=== PATIENT | male | born 1965 | race Caucasian/White ===

== ENCOUNTER 2024-08-23 15:33 | Inpatient (IN) | payer OTHER, SELFPAY ==
[2024-08-23] VITALS (14 sets, daily range): BP systolic 123–155; BP diastolic 68–89; BMI 27.7; BMI 27.1
--- NOTE | 2024-08-23 13:49 | ED.GENMED ---
History of Present Illness
General
Chief Complaint: Skin Problem
Source: patient
Exam Limitations: none
Time Seen by Provider: 08/23/24 13:28
Nursing documentation reviewed up to this point in time: agreed with
History of Present Illness
History of Present Illness:
58-year-old male past medical history of diabetes partial toe amputation to the left foot presenting to the emergency department today with concerns of worsening swelling and redness over the past 10 days. Received by his retail salesperson 6 days ago
started on doxycycline and has been taking this as prescribed without improvement. Denies any systemic symptoms fevers. Denies any nausea vomiting chest pain.
Review of Systems
Review of Systems
Allergies reviewed?: Yes
All Other Systems: ROS reviewed and negative except as documented in HPI and ROS
Phy Exam
Physical Exam
Physical Exam:
GENERAL: Alert , in no apparent distress
EYE: pupils equal and reactive
NECK: Supple, no significant adenopathy.
ENT: o/p clr, mmm.
CARDIAC: Regular rate and rhythm .
LUNGS: Clear breath sounds bilaterally, no acute respiratory distress, no wheezes/rales/rhonchi
ABDOMEN: Soft, without focal tenderness, no r/g, no cvat
NEUROLOGICAL: Alert and oriented, no focal neuro deficits
SKIN: Redness and swelling to the left great toe with distal amputation from 3 years ago, small mount of purulence and ulceration to the medial distally redness and warmth to the midfoot warm and dry, skin intact.
MUSCULOSKELETAL: No edema, well perfused.
PSYCH: Normal and appropriate interaction.
Sepsis
Sepsis Screening
Sepsis Assessment: Sepsis Ruled Out
Sepsis Screen
Sepsis Screen: Sepsis Ruled Out
Date: 08/23/24
Time: 14:52
Course
Orders/Labs/Results
Orders:
Orders
08/23/24 13:35
CR Foot - Left Min 3 Views Urgent
Comment:
Reason For Exam: great toe infection
08/23/24 14:14
Vancomycin [Vancocin] 2,000 mg 0.9% Sodium Chloride 500 ml [Nss] 500 ml IV NOW
08/23/24 14:18
CBC/With Diff [Complete Blood Count/With Diff] Urgent
CMP [Comprehensive Metabolic Panel] Urgent
Lactic Acid Urgent
Wound Culture [Wound/Abscess/Other Culture] Urgent
ALEXUS Source: Toe
Specimen Description:
Date Specimen was Collected: 08/23/24
Time Specimen was Collected: 13:38
Abnormal Lab Results
08/23/24
14:18
RBC 3.71 L 10^6/uL
(4.70-6.10)
Hgb 10.1 L g/dL
(13.0-18.0)
Hct 28.6 L %
(39.0-52.0)
MCV 77.1 L fL
(80.0-94.0)
RDW 14.8 H %
(11.5-14.5)
MPV 11.0 H fL
(7.4-10.4)
Abs Immat Gran (auto) 0.1 H 10^3/uL
(0-0.05)
Absolute Lymphs (auto) 1.1 L 10^3/uL
(1.2-3.4)
Absolute Monos (auto) 0.7 H 10^3/uL
(0.1-0.6)
Immature Gran % 0.7 H %
(0-0.5)
Lymphocytes % 13.8 L %
(20.5-51.1)
08/23/24 14:18
Vital Signs
Initial and Last Documented VS:
Initial Vital Signs
Temp Pulse Resp BP Pulse Ox
98.1 F 110 16 135/89 99
08/23/24 13:09 08/23/24 13:09 08/23/24 13:09 08/23/24 13:09 08/23/24 13:09
Last Documented Vital Signs
Temp Pulse Resp BP Pulse Ox
98.1 F 110 16 135/89 99
08/23/24 13:09 08/23/24 13:09 08/23/24 13:09 08/23/24 13:09 08/23/24 13:09
MDM/Problems Addressed
MDM/Problems Addressed:
58-year-old male presenting for apparent worsening of left great toe infection over the past 6 days despite taking doxycycline. Case discussed with podiatry started on IV antibiotics and will be admitted for further management.
*Critical Care Note
Total Time (30-74mins, 75-104mins- exclusive of procedures): Not Applicable
ED Attending Note
-
Portions of this chart may have been created with voice recognition software.� Occasional wrong word or��sound alike� substitutions may have occurred due to the inherent limitations of voice recognition software.
Discharge Plan
Departure
Patient Disposition: Admit
Date of Disposition: 08/23/24
Time of Disposition: 14:51
Admit to: Med/Surg
Admit to doctor: Bety
Presentation/result/management discussed w/ accepting MD/DO: Hospitalist
Patient with high blood pressure during this ER visit?: No
Condition: Good
Covid-19: Not Applicable
Discharge Problem:
Infection of toe
Prescriptions:
No Action
amlodipine 10 mg tablet
10 mg PO DAILY
losartan 100 mg tablet
100 mg PO DAILY
insulin aspart U-100 [Novolog FlexPen U-100 Insulin] 100 unit/mL (3 mL) insulin pen
20 unit SC MEALS
tadalafil 20 mg tablet
20 mg PO DAILYPRN PRN (Reason: ed)
insulin glargine [Lantus Solostar U-100 Insulin] 100 unit/mL (3 mL) insulin pen
28 unit SC BID
dapagliflozin propanediol [Farxiga] 5 mg tablet
5 mg PO DAILY
Nuzyra 150 mg tablet
150 mg PO BID
Referrals:
Brandi Evangelista DO [Family Provider] -
Interventions
Interventions:
*Risk Screen - Suicide Last Done: 08/23/24 13:09
*General Assessment Last Done: 08/23/24 13:09
*Neglect/Abuse Screening Last Done: 08/23/24 13:09
*ED COVID-19 Vaccine History Last Done: 08/23/24 13:09
Discharge Date and Time
Print Language: GUATEMALAN
[2024-08-23] MEDS: VANCOCIN 540 MG IV (14:24)
[2024-08-23 14:31] LABS: % Basophils 0.5 % (0-2); % Immature Granulocytes 0.7 % (0-0.5); % Lymphocytes 13.8 % (20.5-51.1); % Monocytes 9.2 % (1.7-9.3); % Neutrophils 74.8 % (42.2-75.2); Absolute Eosinophils 0.1 10^3/uL (0-0.7); Absolute Immature Granulocytes 0.1 10^3/uL (0-0.05); Absolute Lymphocytes 1.1 10^3/uL (1.2-3.4); Absolute Monocytes 0.7 10^3/uL (0.1-0.6); Hematocrit 28.6 % (39.0-52.0); Hemoglobin 10.1 g/dL (13.0-18.0); Mean Corp Hgb Conc. 35.3 g/dL (33.0-37.0); Mean Corpuscular Hgb 27.2 pg (27.0-31.0); Mean Corpuscular Volume 77.1 fL (80.0-94.0); Nucleated Red Blood Cells % 0 % (-); Platelet Count 294 10^3/uL (130-400); Red Blood Cell Count 3.71 10^6/uL (4.70-6.10); Red Cell Dist. Width 14.8 % (11.5-14.5)
[2024-08-23 14:48] LABS: Lactic Acid 0.9 mmol/L (0.7-2.0)
[2024-08-23 14:56] LABS: ALT (SGPT) 24 U/L (0-50); AST (SGOT) 17 U/L (17-59); Albumin 3.5 g/dl (3.5-5.0); Alkaline Phosphatase 156 U/L (38-126); Blood Urea Nitrogen 40 mg/dl (9-20); Calcium 8.4 mg/dl (8.4-10.2); Carbon Dioxide 17 mmol/L (22-30); Chloride 101 mmol/L (98-107); Estimated Creatinine Clearance 51 ml/min; Glucose 300 mg/dl (70-99); Sodium 133 mmol/L (135-145); Total Bilirubin 0.6 mg/dl (0.2-1.3); Total Protein 6.4 g/dl (6.3-8.2); eGFR 40.64
--- NOTE | 2024-08-23 15:28 | HPS.HSE ---
Family Physician
-
Family Physician: Brandi Evangelista
Chief Complaint
-
foot infection
History of Present Illness
58-year-old male past medical history of type II diabetes, partial amputation of left great toe 3 years ago, PAD status post left lower extremity intervention 3 years ago, hypertension, presenting for worsening swelling and redness and pain at the
site of the amputation for the past 10 days. He saw his lamp assembler who performed debridement started antibiotics 60s ago without improvement. Patient is having discharge. He denies any fevers or chills.
Patient states that he had a TIA a few months ago. At that time he had blood work which showed normal kidney function. He was admitted a week ago for vomiting [facility] was given IV fluids. At time he was noted to have elevated
creatinine which was new. Currently denies any nausea vomiting or abdominal pain or diarrhea.
He states that his blood sugars have been elevated for the past few weeks which she attributes to infection. Patient does vape and is trying to quit. He drinks a few glasses of alcohol a week.
He had a vascular ultrasound few weeks ago [facility] which apparently did not show any blockages in his left lower extremity.
Medical History
Past Medical History
Past Medical History: Reports Other (type II diabetes, partial amputation of left great toe 3 years ago, PAD status post left lower extremity intervention 3 years ago, hypertension, )
Past Surgical History: Reports Other (amputation )
Social History
Tobacco: Non-smoker
Alcohol: None
Drug: None
Family History
Family History: Not pertinent
Allergies / Home Medications
Allergies reflects when Allergies were last updated in [facility].
Home Medications with original date entered in [facility]
Allergy/Medication List:
Allergies
Allergy/AdvReac Type Severity Reaction Status Date / Time
No Known Allergies Allergy Verified 08/23/24 13:13
Home Medications
amlodipine 10 mg tablet 10 mg PO DAILY 08/23/24
dapagliflozin propanediol 5 mg tablet (Farxiga) 5 mg PO DAILY 08/23/24
insulin aspart U-100 100 unit/mL (3 mL) subcutaneous pen (Novolog FlexPen U-100 Insulin aspart) 20 unit SC MEALS 08/23/24
insulin glargine 100 unit/mL (3 mL) subcutaneous pen (Lantus Solostar U-100 Insulin) 28 unit SC BID 08/23/24
losartan 100 mg tablet 100 mg PO DAILY 08/23/24
omadacycline 150 mg tablet (Nuzyra) 150 mg PO BID 08/23/24
tadalafil 20 mg tablet 20 mg PO DAILYPRN PRN ed 08/23/24
Review of Systems
-
History Source: Patient
A 12 point ROS was completed and negative except as noted: Yes
Constitutional: Reports No Symptoms
EENT: Reports No Symptoms
Respiratory: Reports No Symptoms
Cardiac: Reports No Symptoms
Abdomen/GI: Reports No Symptoms
: Reports No Symptoms
Musculoskeletal: Reports No Symptoms
Skin: Reports See HPI
Neurological: Reports No Symptoms
Endocrine: Reports No Symptoms
Hematologic/Lymphatic: Reports No Symptoms
Psych: Reports No Symptoms
Physical Exam
Vital Signs
Vital Signs
Temp Pulse Resp BP Pulse Ox
98.1 F 90 20 139/77 100
08/23/24 13:09 08/23/24 14:00 08/23/24 14:00 08/23/24 14:00 08/23/24 14:00
Physical Exam
General: Well Developed, Well Nourished and No Apparent Distress
HEENT: NormoCephalic, Moist mucous membranes and Atraumatic
Respiratory: Clear
Cardiac: S1/S2 and Regular Rhythm; No Murmur or Rub
GI: Soft, Non Tender, Non Distended and Normal Bowel Sounds; No Organomegaly
Rectal: Deferred by Provider
Musculoskeletal: No Clubbing, No Cyanosis and No Edema
Skin: Other (left great toe swelling, erythema, wound dischagre ); No Rash
Neuro: Nonfocal/grossly intact
Laboratory Results
-
08/23/24 14:18
08/23/24 14:18
Laboratory Results
Lactic Acid 0.9 mmol/L (0.7-2.0) 08/23/24 14:18
Total Bilirubin 0.6 mg/dl (0.2-1.3) 08/23/24 14:18
AST 17 U/L (17-59) 08/23/24 14:18
ALT 24 U/L (0-50) 08/23/24 14:18
Alkaline Phosphatase 156 U/L (38-126) H 08/23/24 14:18
Data Reviewed
-
Lab Data: Labs Reviewed by me
Old Records: Reviewed
Impression/Plan
-
IMPRESSION:
PLAN:
# Diabetic foot infection of left great toe partial amputation site, possible underlying osteomyelitis
# Left great toe partial amputation 3 years ago
-X-ray shows postoperative change of the great toe with prior distal phalanx removal, soft tissue swelling with subcutaneous gas
-Podiatry consult
-N.p.o. for possible surgery today
-Wound culture sent
-Vancomycin/Zosyn
-ID consulted
-Wound care
-Vascular surgery consult
-Will need to obtain vascular records from [facility]
#History of PAD with intervention of left lower extremity 3 years ago
-Will need to obtain vascular records from [facility]
# THOMAS on possible diabetic nephropathy
-Baseline creatinine unavailable
-Creatinine 1.9
-IV fluids
-Hold losartan
# Hyperglycemia secondary to infection
# Type 2 diabetes
-Continue Lantus 28 units twice daily due to hyperglycemia
-Continue dapagliflozin
-High-dose sliding scale
Essential hypertension
-Hold losartan
-Continue amlodipine
Vaping history
Full code
DVT prophylaxis�SCDs
N.p.o.
--- NOTE | 2024-08-23 16:23 | W.PN.POD ---
Today's Communication
Today's Communication
pt to OR today
Assessment / Plan
-
absces/gas/ulcer left foot---pt to remain npo
will plan for OR today
consent obtained
full consult dictated
pt understands extent of infection and need for mult sx
npo
cont abx
consult ID/vasc
Subjective
Chief Complaint
pt seen for ulcer/abscess/gas left foto
full consult dictated
Objective
Temp Pulse Resp BP Pulse Ox
98.1 F 90 20 139/77 100
08/23/24 13:09 08/23/24 14:00 08/23/24 14:00 08/23/24 14:00 08/23/24 14:00
08/23/24 14:18
08/23/24 14:18
Vital Signs and Lab results were reviewed.
--- NOTE | 2024-08-23 17:29 | PHA.VAN.IN ---
Assessment
- Assessment
Renal Function: Unknown baseline
Concomitant Antimicrobials: ZOSYN
- Previous Dosing Experience
Previous Regimen: NONE
Plan
- Plan
Initial / Loading Dose: 2GM
Maintenance Regimen: DOSING BY RANDOM LEVELS
Monitoring: RANDOM VANCOMYCIN LEVEL 08/24/24 AM
Pharmacokinetics Vancomycin I
- -
Patient Age: 58
Patient Sex: Male
Vancomycin Day #: 1
Indication: Skin And Soft Tissue (DIABETIC FOOT; OM)
Requesting Provider: SUSAN
Height / Weight:
Height 6 ft 3 in
Actual Weight 98.231 kg
Pertinent Past Medical History: DM; PARTIAL AMP [L] GREAT TOE
- Vital Signs / Lab Results
Temp Pulse Resp BP Pulse Ox
98.1 F 88 20 139/82 92
08/23/24 17:13 08/23/24 17:13 08/23/24 17:13 08/23/24 17:13 08/23/24 17:13
Lab Results - Hematology
08/23/24
14:18
WBC 8.0
Lab Results - Chemistry
08/23/24
14:18
BUN 40 H
Creatinine 1.9 H
Estimated Creat Clear 51
Albumin 3.5
08/23/24
14:18
Lactic Acid 0.9
[2024-08-23] MEDS: ZOSYN IV (18:02)
[2024-08-23 18:47] LABS: Glucose - Point of Care 383 mg/dl (70-99)
--- NOTE | 2024-08-23 18:48 | W.PN.UPDATE ---
Update Note
Progress Note Update
pt seen in RR
no pain
no f/.cardiology consultants
dressing cdi
vasc cft intact to toes
a/p s/p s/p I&D/hallux amp left---stable for now, wound left open
met head exposed
will plan for delayed closed and met resection in coming days
ID consulted
vasc consulted
cont abx
will follow
nwb left foot
[2024-08-23] MEDS: NOVOLOG vial 8 UNITS SC (18:59)
[2024-08-23] MEDS: DILAUDID 0.25 MG IV (19:06)
--- NOTE | 2024-08-23 20:00 | PTCARENOTE ---
Patient arrived from PACU following left great toe amputation. Patient AAO x3, on RA, in no acute distress. Dressing is c/d/i. Neurovascular checks WNL, positive left popliteal and right dorsalis pedis pulses. Patient with good sensation to LLE and
left foot. Able to wiggle toes. Skin is warm to palpation. Will continue to monitor.
[2024-08-23] MEDS: NOVOLOG FLEXPEN-HIGH RESISTANCE SC (20:36)
[2024-08-23 21:15] LABS: Glucose - Point of Care 386 mg/dl (70-99)
[2024-08-23] MEDS: TYLENOL 650 MG PO (21:31)
[2024-08-23] MEDS: LANTUS 0.28 UNITS SC (21:32)
[2024-08-23] MEDS: NSS 1000 IV (21:32)
[2024-08-24] MEDS: ZOSYN 50 IV ×5 (00:29→23:31)
[2024-08-24] MEDS: DILAUDID 0.5 MG IV ×3 (00:29→19:41)
[2024-08-24 03:51] VITALS: BP 159/86
[2024-08-24] MEDS: NSS 1000 IV (06:00)
[2024-08-24 06:55] LABS: Glucose - Point of Care > 600 mg/dl (70-99)
[2024-08-24 07:00] VITALS: BP 147/76
[2024-08-24 07:05] LABS: % Basophils 0.1 % (0-2); % Eosinophils 0.1 % (0-6); % Immature Granulocytes 0.8 % (0-0.5); % Lymphocytes 4.3 % (20.5-51.1); % Monocytes 3.8 % (1.7-9.3); % Neutrophils 90.9 % (42.2-75.2); Absolute Immature Granulocytes 0.1 10^3/uL (0-0.05); Absolute Lymphocytes 0.3 10^3/uL (1.2-3.4); Absolute Monocytes 0.3 10^3/uL (0.1-0.6); Hematocrit 27.4 % (39.0-52.0); Hemoglobin 9.9 g/dL (13.0-18.0); Mean Corp Hgb Conc. 36.1 g/dL (33.0-37.0); Mean Corpuscular Hgb 27.9 pg (27.0-31.0); Mean Corpuscular Volume 77.2 fL (80.0-94.0); Mean Platelet Volume 11.3 fL (7.4-10.4); Nucleated Red Blood Cells % 0 % (-); Platelet Count 296 10^3/uL (130-400); Red Blood Cell Count 3.55 10^6/uL (4.70-6.10); Red Cell Dist. Width 14.6 % (11.5-14.5); White Blood Cell Count 7.7 10^3/uL (4.8-10.8)
[2024-08-24 07:20] LABS: Vancomycin Random 10.9 ug/ml
[2024-08-24 07:43] LABS: ALT (SGPT) 45 U/L (0-50); AST (SGOT) 42 U/L (17-59); Albumin 3.3 g/dl (3.5-5.0); Alkaline Phosphatase 223 U/L (38-126); Blood Urea Nitrogen 35 mg/dl (9-20); Calcium 8.2 mg/dl (8.4-10.2); Carbon Dioxide 16 mmol/L (22-30); Chloride 102 mmol/L (98-107); Estimated Creatinine Clearance 65 ml/min; Potassium 5.3 mmol/L (3.5-5.1); Sodium 133 mmol/L (135-145); Total Bilirubin 0.6 mg/dl (0.2-1.3); Total Protein 6.1 g/dl (6.3-8.2); eGFR 53.96
[2024-08-24] MEDS: LANTUS 0.28 UNITS SC (07:52)
[2024-08-24 07:55] LABS: Glucose 650 mg/dl (70-99)
--- NOTE | 2024-08-24 08:18 | CON.VAS ---
Addendum entered and electronically signed by Kar Tom III, MD 08/24/24 15:02:
This patient was seen and examined with CHADD Rivas. I agree with the history and physical exam as well as the assessment and plan. I have the following additions:
58-year-old male
Poorly controlled diabetic
Known peripheral arterial occlusive disease with prior intervention at outside hospital in 2021
Noncompliant with follow-up
Now with left foot wound
Nonpalpable pedal pulses
I personally reviewed the noninvasive arterial studies which are abnormal on the left and suggest the presence of tibial artery and small vessel occlusive disease.
My recommendation is for left lower extremity arteriogram with possible endovascular intervention. The technical aspects of this procedure were discussed with him in detail. The benefits and rationale for this approach were discussed with him in
detail. Operative risks were discussed with him in detail including but not limited to arterial access site injury, bleeding, contrast nephropathy, infection, distal embolization and limb loss. We also discussed the possibility that he may need
open revascularization or a more advanced endovascular procedure depending on the outcome of the arteriogram. He expressed a clear understanding of our conversation and agrees to proceed with surgery as detailed above.
Signed:
Kar Tom III, MD
[facility]
[phone] (easr)
Original Note:
Consultation
Consultation Request
Date/Time Consultation Performed: 08/24/24 0900
Requesting Provider: Hospitalist
Performing Provider: Gege Tapia NP-C for Kar Tom III, MD
Reason for Consultation: Nonhealing foot wound
Medical History
-
Chief Complaint: Nonhealing foot wound
History of Present Illness:
This is a 58-year-old male with significant past medical history for diabetes, prior amputation of left hallux, peripheral arterial disease, and hypertension who reports to [facility] at encouragement of his foster care worker Dr. Holden for worsening
left hallux infection. Patient notes that roughly 2 to 3 weeks ago he was on vacation in [place] [facility] [place] [facility] and had spent some time in a hot tub, and the following day he noted worsening redness at left hallux. He said over time wound progressed to
include sloughing skin and purulent drainage, prompting to see his foster care worker who recommended ED evaluation for expedited care. Dr. Holden took patient last evening to the OR for incision and drainage of infection and amputation of left hallux,
which he left open. Patient reports similar wound trajectory occurring at the left hallux roughly 3 years ago, which resulted in partial amputation of the digit. At that time he did undergo peripheral arterial workup, which she does endorse
revealed peripheral arterial disease. He was seen at the [facility] in [place], although he cannot recall the name of the surgeon, and underwent left lower extremity angiogram with an intervention he believes it was just an
angioplasty without a stent placement but he cannot be certain. Following the surgical intervention he was able to eventually heal his left hallux wound but he does endorse that it took several months to heal. Following his arteriogram he did not
follow-up with the [facility]. He denies rest pain. He has no other complaints.
Past Medical History
Past Medical History: HTN, IDDM and Other (PAD )
Past Surgical History: Orthopedic (partial amputation of left great toe 3 years ago) and Other (Left lower extremity angiogram with intervention 2020)
Social History
Tobacco: Non-Smoker
Alcohol: None
Drug: None
Allergies / Home Medications
Allergy/AdvReac Type Severity Reaction Status Date / Time
No Known Allergies Allergy Verified 08/23/24 13:13
�Medication �Instructions �Recorded �Confirmed �Type
amlodipine 10 mg tablet 10 mg PO DAILY 08/23/24 08/23/24 History
dapagliflozin propanediol 5 mg 5 mg PO DAILY 08/23/24 08/23/24 History
tablet (Farxiga)
insulin aspart U-100 100 unit/mL 20 unit SC MEALS 08/23/24 08/23/24 History
(3 mL) subcutaneous pen (Novolog
FlexPen U-100 Insulin aspart)
insulin glargine 100 unit/mL (3 28 unit SC BID 08/23/24 08/23/24 History
mL) subcutaneous pen (Lantus
Solostar U-100 Insulin)
losartan 100 mg tablet 100 mg PO DAILY 08/23/24 08/23/24 History
omadacycline 150 mg tablet (Nuzyra) 150 mg PO BID 08/23/24 08/23/24 History
tadalafil 20 mg tablet 20 mg PO DAILYPRN PRN ed 08/23/24 08/23/24 History
Review of Systems
-
History Source: Patient
Constitutional: Reports No Symptoms
EENT: Reports No Symptoms
Respiratory: Reports No Symptoms
Cardiac: Reports No Symptoms
Vascular: Denies Leg Pain / Claudication, Numbness or Tingling
Abdomen/GI: Reports No Symptoms
: Reports No Symptoms
Musculoskeletal: Reports No Symptoms
Skin: Reports Other (Wound at left hallux, status post incision and drainage and hallux amp at left foot by podiatry)
Neurological: Reports No Symptoms
Endocrine: Reports No Symptoms
Physical Exam
Vital Signs
Temp Pulse Resp BP Pulse Ox
97.9 F 88 20 159/86 95
08/24/24 03:51 08/24/24 03:51 08/24/24 03:51 08/24/24 03:51 08/24/24 03:51
Lab Results
08/24/24 06:23
Physical Exam
General: No Apparent Distress
HEENT: Normocephalic, Anicteric and Atraumatic
Respiratory: Clear
Cardiac: Negative JVD
GI: Soft, Non Tender and Non Distended
Musculoskeletal: No Edema
Skin: Warm and Other (Bilateral feet warm, unable to fully assess left foot due to postop surgical dressing)
Neuro: AO x 3
Pulses: Bilateral Femoral: +2 (Right distal pulses nonpalpable, cannot assess left foot due to postop surgical dressing)
Assessment / Plan
-
Assessment: 58-year-old male history of peripheral arterial disease with wound at left hallux
Plan:
Arterial ultrasound with RUSSELL/TBI
Can consider arteriogram with possible invention for further evaluation of peripheral arterial disease, will provide surgical recommendation once ultrasound results are provided
Reviewed plan with attending Dr. Kar Tom III
[2024-08-24 08:23] LABS: Glucose 631 mg/dl (70-99)
--- NOTE | 2024-08-24 08:33 | PHA.VAN.FU ---
Vancomycin Assessment / Plan
- Assessment
Renal Function: SCR Decreasing
WBC's are: WNL
In the past 24 hrs, patient has been: Afebrile
Concomitant Antimicrobials: piperacillin/tazobactam
- Assessment - Therapeutic Drug Monitoring
Random Level: 10.9 - drawn ~16H after 2g loading dose
- Dosing Plan
Dosing by Level: Re-dose today (Vanc 1500mg)
- Monitoring Plan
Random Level: 08/25 06
- Follow Up
Pharmacy will continue to follow.
Vancomycin Follow UP
- -
Patient Age: 58
Patient Sex: Male
Vancomycin Day #: 2
Indication: Skin And Soft Tissue
Requesting Provider: Dr. Albert
Pertinent Antimicrobial Allergies:
NKDA
Height / Weight:
Height 6 ft 3 in
Actual Weight 98.231 kg
Pertinent Past Medical History: DM II, PAD
- Vital Signs / Lab Results
Temp Pulse Resp BP Pulse Ox
97.9 F 88 20 159/86 95
08/24/24 03:51 08/24/24 03:51 08/24/24 03:51 08/24/24 03:51 08/24/24 03:51
Lab Results - Hematology
08/23/24 08/24/24
14:18 06:23
WBC 8.0 7.7
Lab Results - Chemistry
08/23/24 08/24/24
14:18 06:23
BUN 40 H 35 H
Creatinine 1.9 H 1.5 H
Estimated Creat Clear 51 65
Albumin 3.5 3.3 L
08/23/24
14:18
Lactic Acid 0.9
Microbiology Results
08/23/24 14:18 Gram Stain - Preliminary
Toe
Therapeutic Drug Monitoring
Random Vancomycin 10.9 ug/ml 08/24/24 06:23
[2024-08-24] MEDS: NOVOLOG FLEXPEN 25 UNITS SC (08:35)
[2024-08-24] MEDS: NOVOLOG FLEXPEN-HIGH RESISTANCE SC ×2 (08:35→17:19)
--- NOTE | 2024-08-24 08:51 | PTCARENOTE ---
Patient accucheck read as >400 this am. Stat lab drawn. Stab lab drawn returned at 631. Hospitalist field artillery operations specialist made aware, Dr. Rosario and 25 units of novolog given per orders. Patient reports to have been eating 'wafers all night' that girlfriend
brought in for him. Will recheck blood sugar per protocol.
[2024-08-24 09:06] LABS: Glycohemoglobin (HgbA1c) 9.3 % (4.0-5.6)
[2024-08-24 10:18] LABS: Glucose - Point of Care 469 mg/dl (70-99)
[2024-08-24] MEDS: NORVASC 10 MG PO (10:22)
[2024-08-24] MEDS: LR 1000 IV ×2 (10:22→22:07)
[2024-08-24] MEDS: VANCOCIN 300 MG IV (10:23)
[2024-08-24] MEDS: VANCOCIN 300 ML IV (10:23)
[2024-08-24 10:51] LABS: Glucose 499 mg/dl (70-99)
[2024-08-24] MEDS: NOVOLOG FLEXPEN-HIGH RESISTANCE 14 UNITS SC ×2 (10:55→17:50)
--- NOTE | 2024-08-24 11:42 | CM ---
Patient seen bedside, initial assessment completed. Patient resides independently in a multiple level home, two steps to enter. Patient reports his 13 year old daughter sometimes lives with him. Patient reports history of VN several years ago after
amputation, denies SNF history. Patient denies DME in the home. 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 Patient confirms PCP Brandi Evangelista, pharmacy [facility], confirms prescription coverage. CM will continue
to follow for all discharge planning needs, will watch for wound care/ VN needs.
Plan; home no needs, watch for VN/wound needs.
--- NOTE | 2024-08-24 12:20 | W.PN.UPDATE ---
Update Note
Progress Note Update
pt seen for fu sx
no f/cartographic drafter
tender
dressing with blood noted, vasc tests today
derm tissue looks healthy, met exposed, margins viable
no pus
resolving cellulitis, no pus
no odor
a/p s/p hallux amp---stable, will plan to debride and 1st met resection with closure tomorrow
npo after midnight
vasc consult, awaiting test results/eval, balwinder .57, right tbi .21
consent read and signed
all questions answered
--- NOTE | 2024-08-24 12:25 | W.PN.HOSP.TC ---
Today's Communication/Plan
-
Monitor vital signs
see plan
N.p.o. past midnight for OR tomorrow
Ultrasound
Continue with insulin
Continue antibiotics
Follow cultures
Assessment / Plan
Assessment / Plan
General: Well Developed, Well Nourished and No Apparent Distress
HEENT: NormoCephalic, Moist mucous membranes and Atraumatic
Respiratory: Clear
Cardiac: S1/S2 and Regular Rhythm; No Murmur or Rub
GI: Soft, Non Tender, Non Distended and Normal Bowel Sounds
Musculoskeletal: No Edema
Skin: left toe bandage
Neuro: Nonfocal/grossly intact
Diabetic foot infection of left great toe partial amputation site, possible underlying osteomyelitis
# Left great toe partial amputation 3 years ago
-X-ray shows postoperative change of the great toe with prior distal phalanx removal, soft tissue swelling with subcutaneous gas
-Podiatry following; s/p hallux amp. Plan for debridement and first metatarsal resection with closure 08/25. N.p.o. past midnight.
US doppler RUSSELL pending. vascular following
-Wound culture gr - bacilli
-cw Vancomycin/Zosyn
-ID consulted
-Wound care
-Vascular surgery consult
-Will need to obtain vascular records from [facility]
#History of PAD with intervention of left lower extremity 3 years ago
-Will need to obtain vascular records from [facility]
vascular following here
# THOMAS on possible diabetic nephropathy
-Baseline creatinine unavailable
-Creatinine 1.5 now; on admission 1.9
-IV fluids
-Hold losartan
# Hyperglycemia secondary to infection
# Type 2 diabetes
-Continue Lantus 28 units twice daily due to hyperglycemia. started mealtime insulin. cw sliding scale
-Continue dapagliflozin
-High-dose sliding scale
BS uncontrolled; A1c 9's. Diabetic FLIGHT ENGINEER INSTRUCTOR consulted
Essential hypertension
-Hold losartan
-Continue amlodipine
Vaping history
Full code
DVT prophylaxis�SCDs
I spent a total of 52 minutes with the patient or on the floor. More than 50% of this time involved counseling and coordination of care.
Anticipated Discharge: > 48 hours
Subjective/Interval History
-
Date of Service: August 24, 2024
denies pain
Objective Data
-
Labs:
Laboratory Results
08/24/24 08/24/24 08/24/24
06:23 07:47 10:27
WBC 7.7
Hgb 9.9 L
Hct 27.4 L
Plt Count 296
Sodium 133 L
Potassium 5.3 H
Chloride 102
Carbon Dioxide 16 L
BUN 35 H
Creatinine 1.5 H
Glucose 650 H* 631 H* 499 H*
Calcium 8.2 L
Total Bilirubin 0.6
AST 42
ALT 45
Alkaline Phosphatase 223 H
08/24/24
14:00
WBC
Hgb
Hct
Plt Count
Sodium Pending
Potassium Pending
Chloride Pending
Carbon Dioxide Pending
BUN Pending
Creatinine Pending
Glucose Pending
Calcium Pending
Total Bilirubin
AST
ALT
Alkaline Phosphatase
Vital Signs:
Vital Signs
Temp Pulse Resp BP Pulse Ox
97.6 F 86 18 147/76 96
08/24/24 07:00 08/24/24 07:00 08/24/24 07:00 08/24/24 07:00 08/24/24 07:00
I&O
08/23/24 08/24/24 08/25/24
06:59 06:59 06:59
Intake Total 580 / 580
Output Total 1675 / 1675
Balance -1095 / -1095
[2024-08-24 12:43] LABS: Glucose - Point of Care 389 mg/dl (70-99)
[2024-08-24] MEDS: NOVOLOG FLEXPEN 20 UNITS SC ×2 (13:02→16:56)
[2024-08-24 14:07] LABS: Blood Urea Nitrogen 32 mg/dl (9-20); Calcium 9.1 mg/dl (8.4-10.2); Carbon Dioxide 21 mmol/L (22-30); Chloride 103 mmol/L (98-107); Estimated Creatinine Clearance 65 ml/min; Glucose 341 mg/dl (70-99); Potassium 4.7 mmol/L (3.5-5.1); Sodium 138 mmol/L (135-145); eGFR 53.96
[2024-08-24] MEDS: XANAX 0.25 MG PO (14:34)
[2024-08-24 15:00] VITALS: BP 179/91
--- NOTE | 2024-08-24 15:04 | PTCARENOTE ---
Patient spoke with wastewater treatment supervisor Reva per request. Patient makes displeasure with room size known to all staff. Xanax ordered by Hospitalist. Patient states he is 'very anxious.' See MAR.
[2024-08-24 17:01] LABS: Glucose - Point of Care 412 mg/dl (70-99)
[2024-08-24 17:03] VITALS: BP 152/81
--- NOTE | 2024-08-24 17:35 | PN.DE.MGMTRT ---
Insulin Management
- -
08/24/2024 Diabetes Management Consult
Patient admitted 08/23 with L foot wound pain swelling at amputation site. PMH HTN, type 2 diabetes, L great toe amputation years ago, PAD. A1C on admission 9.3% cr 1.5, eGFr 53.96. Prior to admission was taking lantus 28 units BID with novolog
20 units AC, with metformin 1000 BID. Patient sees endocrine at [facility].
Patient is for OR in AM for L foot.
Patient is awake alert and oriented in bed eating dinner, able to discuss diabetes management, at bedside. Patient states he has had diabetes 15 years.
Discussed implications of elevated A1C, he is agreeable to start Farxiga, and increase lantus to 32 units BID and novolog 25 units AC with corrective These new doses will start after OR in AM
Diabetes History
- -
Type of Diabetes: 2 requiring insulin
Pre-Admission Diabetes Regimen
08/24/24 08/24/24
06:23 13:42
Creatinine 1.5 H 1.5 H
Lab Results
Hemoglobin A1c 9.3 % (4.0-5.6) H 08/24/24 06:23
Insulin Pump Settings
IP Diabetes Regimen
08/23/24 08/23/24 08/24/24
18:46 21:13 06:23
Glucose 650 H*
POC Glucose 383 H 386 H
08/24/24 08/24/24 08/24/24
06:49 07:47 10:17
Glucose 631 H*
POC Glucose > 600 H* 469 H*
08/24/24 08/24/24 08/24/24
10:27 12:40 13:42
Glucose 499 H* 341 H
POC Glucose 389 H
08/24/24
16:52
Glucose
POC Glucose 412 H
Patient Education
[2024-08-24 17:45] LABS: Glucose 400 mg/dl (70-99)
--- NOTE | 2024-08-24 18:16 | CON.ID ---
Consultation
-
Date/Time Consultation Requested: 08/23/24 16:56
Date/Time Consultation Performed: 08/24/24 17:02
Requesting Provider: Dr Holden
Performing Provider: Dr Alberts
Reason for Consultation: diabetic foot infection
Chief Complaint / Past History
Chief Complaint
foot infection
History of Present Illness
Mr Walker is a 58-year-old male past medical history of type II diabetes, partial amputation of left great toe 3 years ago at OSH, PAD status post left lower extremity interventions 3 years ago, who presenting for worsening swelling and redness and
pain at the site of the amputation for the past 10 days. Reports no new shoes, or long periods of standing. The surgical site spontaneously began to open up and drain. He saw his process improvement engineer who performed debridement started tetracycline TID by
report without improvement. He spent time in a hot tub (including the foot) after the wound opened. He denies any fevers or chills. He is a current smoker using vape pens at this time.
Since arrival here he has been afebrile, bp stable, no leukocytosis though L shift is noted, cr 1.9 on arrival unknown baseline, now 1.5, a1c 9.3, RUSSELL with decreased index BL suggestion of infrapop disease, foot xray pre op with distal 1st toe
single joint resected, follow up xray post op with resection to the level of the metatarsal, patient taken to the OR with podiatry for further resection, multiple cultures with GNR gram stains also notable for gpcs. currently on vancomycin and
zosyn.
Past History
Additional Past Medical History:
type II diabetes, partial amputation of left great toe 3 years ago, PAD status post left lower extremity intervention 3 years ago, hypertension
Additional Past Surgical History:
as per hpi
Allergy History:
No Known Allergies Allergy (Verified 08/23/24 13:13)
Medications Reviewed: Yes
Social History
Tobacco: Smoker (active vaping)
Alcohol: None
Drug: None
Family History
Family History: Not Pertinent
Review of Systems
Review of Systems
General: Negative Fever or Chills
All systems: All other systems were reviewed and were negative
Vital Signs
Temp Pulse Resp BP Pulse Ox
98.3 F 96 18 152/81 97
08/24/24 15:00 08/24/24 17:03 08/24/24 17:03 08/24/24 17:03 08/24/24 15:00
Physical Exam
Physical Exam
Constitutional: No Acute Distress
Cardiovascular: Regular Rate and S1/S2; Negative Murmur or Rub
Pulmonary: Clear and Symmetric; Negative Wheezes, Rales or Rhonchi
Gastrointestinal: Soft, Non Tender, Non Distended and Normal Bowel Sounds
Skin: Warm and Dry; Negative Rash or Jaundice
Wound: Other (dressing clean, dry, intact )
Lab / Diagnostic Study Results
08/24/24 06:23
08/24/24 17:20
Abs Immat Gran (auto) 0.1 10^3/uL (0-0.05) H 08/24/24 06:23
Absolute Neuts (auto) 7.0 10^3/uL (1.4-6.5) H 08/24/24 06:23
Absolute Lymphs (auto) 0.3 10^3/uL (1.2-3.4) L 08/24/24 06:23
Absolute Monos (auto) 0.3 10^3/uL (0.1-0.6) 08/24/24 06:23
Absolute Basos (auto) 0.0 10^3/uL (0-0.2) 08/24/24 06:23
Immature Gran % 0.8 % (0-0.5) H 08/24/24 06:23
Neutrophils % 90.9 % (42.2-75.2) H 08/24/24 06:23
Lymphocytes % 4.3 % (20.5-51.1) L 08/24/24 06:23
Monocytes % 3.8 % (1.7-9.3) 08/24/24 06:23
Eosinophils % 0.1 % (0-6) 08/24/24 06:23
Basophils % 0.1 % (0-2) 08/24/24 06:23
Lactic Acid 0.9 mmol/L (0.7-2.0) 08/23/24 14:18
Microbiology Results
Micro:
08/23/24 18:45 Anaerobic Culture - Preliminary
Foot - Left Culture pending. Anaerobic cultures are examined after 3
days incubation. Additional information to follow.
08/23/24 18:45 Wound Culture - Preliminary
Foot - Left Gram negative bacilli
Gram Stain - Preliminary
08/23/24 18:45 Tissue Culture - Preliminary
Toe Gram negative bacilli
Gram Stain - Preliminary
08/23/24 14:18 Wound Culture - Preliminary
Toe Gram negative bacilli
Gram Stain - Preliminary
Assessment / Plan
Diabetic Foot Infection
DM2 - uncontrolled
Active tobacco use - vaping
- OR cultures with gpcs on the gram stain, GNR in multiple cultures
- s/p debridement, for closure tomorrow
- agree with vanc/zosyn
- follow clinically
[2024-08-24 19:53] LABS: Glucose - Point of Care 428 mg/dl (70-99)
[2024-08-24 20:53] LABS: Glucose 406 mg/dl (70-99)
[2024-08-24] MEDS: NOVOLOG FLEXPEN 14 UNITS SC (21:03)
[2024-08-24] MEDS: LANTUS SC (21:36)
[2024-08-24 23:30] LABS: Glucose - Point of Care 341 mg/dl (70-99)
[2024-08-24 23:38] VITALS: BP 118/66
[2024-08-24] MEDS: NOVOLOG FLEXPEN 10 UNITS SC (23:54)
[2024-08-25] VITALS (17 sets, daily range): BP systolic 16–173; BP diastolic 67–92
[2024-08-25 02:41] LABS: Glucose - Point of Care 298 mg/dl (70-99)
[2024-08-25] MEDS: ZOSYN 50 IV ×4 (04:58→23:03)
[2024-08-25 07:48] LABS: % Basophils 0.3 % (0-2); % Eosinophils 0.6 % (0-6); % Immature Granulocytes 0.7 % (0-0.5); % Lymphocytes 16.2 % (20.5-51.1); % Monocytes 7.2 % (1.7-9.3); Absolute Immature Granulocytes 0.1 10^3/uL (0-0.05); Absolute Lymphocytes 1.1 10^3/uL (1.2-3.4); Absolute Monocytes 0.5 10^3/uL (0.1-0.6); Hematocrit 26.7 % (39.0-52.0); Hemoglobin 9.3 g/dL (13.0-18.0); Mean Corp Hgb Conc. 34.8 g/dL (33.0-37.0); Mean Corpuscular Hgb 27.6 pg (27.0-31.0); Mean Corpuscular Volume 79.2 fL (80.0-94.0); Mean Platelet Volume 11.2 fL (7.4-10.4); Nucleated Red Blood Cells % 0 % (-); Platelet Count 255 10^3/uL (130-400); Red Blood Cell Count 3.37 10^6/uL (4.70-6.10); Red Cell Dist. Width 14.6 % (11.5-14.5); White Blood Cell Count 6.7 10^3/uL (4.8-10.8)
[2024-08-25 08:11] LABS: Vancomycin Random 10.7 ug/ml
[2024-08-25 08:19] LABS: ALT (SGPT) 35 U/L (0-50); AST (SGOT) 19 U/L (17-59); Albumin 3.1 g/dl (3.5-5.0); Alkaline Phosphatase 144 U/L (38-126); Blood Urea Nitrogen 29 mg/dl (9-20); Calcium 8.8 mg/dl (8.4-10.2); Carbon Dioxide 21 mmol/L (22-30); Chloride 105 mmol/L (98-107); Estimated Creatinine Clearance 65 ml/min; Glucose 288 mg/dl (70-99); Potassium 4.7 mmol/L (3.5-5.1); Sodium 139 mmol/L (135-145); Total Bilirubin 0.3 mg/dl (0.2-1.3); Total Protein 5.7 g/dl (6.3-8.2); eGFR 53.96
[2024-08-25 08:47] LABS: Glucose - Point of Care 305 mg/dl (70-99)
--- NOTE | 2024-08-25 08:50 | PHA.VAN.FU ---
Vancomycin Assessment / Plan
- Assessment
Renal Function: Stable (1.5>1.5)
WBC's are: Trending Down
In the past 24 hrs, patient has been: Afebrile
Concomitant Antimicrobials: Piperacillin-tazobactam
- Assessment - Therapeutic Drug Monitoring
Random Level: 10.7 drawn ~20hrs after vancomycin 1500mg dose given
- Dosing Plan
Dosing by Level: Re-dose today (Vancomycin 1500mg x 1 dose)
- Monitoring Plan
Random Level: Ordered for 08/26/24 at 06:00
- Follow Up
Pharmacy will continue to follow.
Vancomycin Follow UP
- -
Patient Age: 58
Patient Sex: Male
Vancomycin Day #: 3
Indication: Skin And Soft Tissue
Requesting Provider: Dr. Albert
Pertinent Antimicrobial Allergies:
NKDA
Height / Weight:
Height 6 ft 3 in
Actual Weight 98.231 kg
Pertinent Past Medical History: DM II, PAD
- Vital Signs / Lab Results
Temp Pulse Resp BP Pulse Ox
97.3 F 68 18 138/81 96
08/25/24 07:15 08/25/24 07:15 08/25/24 07:15 08/25/24 07:15 08/25/24 07:15
Lab Results - Hematology
08/23/24 08/24/24 08/25/24
14:18 06:23 06:40
WBC 8.0 7.7 6.7
Lab Results - Chemistry
08/23/24 08/24/24 08/24/24
14:18 06:23 13:42
BUN 40 H 35 H 32 H
Creatinine 1.9 H 1.5 H 1.5 H
Estimated Creat Clear 51 65 65
Albumin 3.5 3.3 L
08/25/24
06:40
BUN 29 H
Creatinine 1.5 H
Estimated Creat Clear 65
Albumin 3.1 L
08/23/24
14:18
Lactic Acid 0.9
Microbiology Results
08/23/24 18:45 Wound Culture - Preliminary
Foot - Left Gram negative bacilli
Gram Stain - Preliminary
08/23/24 14:18 Wound Culture - Preliminary
Toe Gram negative bacilli
Gram Stain - Preliminary
08/23/24 18:45 Anaerobic Culture - Preliminary
Foot - Left Culture pending. Anaerobic cultures are examined after 3
days incubation. Additional information to follow.
08/23/24 18:45 Tissue Culture - Preliminary
Toe Gram negative bacilli
Gram Stain - Preliminary
Therapeutic Drug Monitoring
Random Vancomycin 10.7 ug/ml 08/25/24 06:40
[2024-08-25] MEDS: NOVOLOG FLEXPEN SC (09:00)
[2024-08-25] MEDS: NOVOLOG FLEXPEN-HIGH RESISTANCE 10 UNITS SC (09:01)
--- NOTE | 2024-08-25 10:33 | W.PN.UPDATE ---
Update Note
Progress Note Update
pt seen in rr
no pain
dressing cdi
cft intact
a/p s/p hallux amp left foot---1st met resected, sesamoids removed, excisonal debridement and closure of wound left---stbale
wound closed, packed
will advance packing in am
nwb left foot
cont abx
bone sent to path
pad--agram this week
[2024-08-25 10:36] LABS: Glucose - Point of Care 257 mg/dl (70-99)
[2024-08-25] MEDS: NOVOLOG vial 6 UNITS SC (10:46)
[2024-08-25] MEDS: FARXIGA 10 MG PO (11:39)
[2024-08-25] MEDS: NORVASC 10 MG PO (11:39)
[2024-08-25] MEDS: LANTUS 0.32 UNITS SC ×2 (11:39→21:40)
[2024-08-25] MEDS: VANCOCIN 300 ML IV (11:40)
[2024-08-25] MEDS: VANCOCIN 300 MG IV (11:40)
[2024-08-25 11:55] LABS: Glucose - Point of Care 254 mg/dl (70-99)
[2024-08-25] MEDS: NOVOLOG FLEXPEN 25 UNITS SC ×2 (11:56→17:40)
[2024-08-25] MEDS: NOVOLOG FLEXPEN-HIGH RESISTANCE 7 UNITS SC (11:58)
--- NOTE | 2024-08-25 12:19 | W.PN.HOSP.TC ---
Today's Communication/Plan
-
monitor vitals
see plan
cw insulin
cw abx
follow cx
Assessment / Plan
Assessment / Plan
General: Well Developed, Well Nourished and No Apparent Distress
HEENT: NormoCephalic, Moist mucous membranes and Atraumatic
Respiratory: Clear
Cardiac: S1/S2 and Regular Rhythm; No Murmur or Rub
GI: Soft, Non Tender, Non Distended and Normal Bowel Sounds
Musculoskeletal: No Edema
Skin: left toe bandage
Neuro: Nonfocal/grossly intact
Diabetic foot infection of left great toe partial amputation site, possible underlying osteomyelitis
# Left great toe partial amputation 3 years ago
-X-ray shows postoperative change of the great toe with prior distal phalanx removal, soft tissue swelling with subcutaneous gas
-Podiatry following; s/p hallux amp. s/p first metatarsal resection with closure 08/25. N.p.o. past midnight.
US doppler RUSSELL pending. vascular following
-Wound culture gr - bacilli
-cw Vancomycin/Zosyn
-ID consulted
-Wound care
-Vascular surgery following; agram next week likely
-Will need to obtain vascular records from [facility]
#History of PAD with intervention of left lower extremity 3 years ago
-Will need to obtain vascular records from [facility]
vascular following here
# THOMAS on possible diabetic nephropathy
-Baseline creatinine unavailable
-Creatinine 1.5 now; on admission 1.9
-IV fluids
-Hold losartan
# Hyperglycemia secondary to infection
# Type 2 diabetes
-Continue Lantus 28 units twice daily due to hyperglycemia. started mealtime insulin. cw sliding scale
-Continue dapagliflozin
-High-dose sliding scale
BS uncontrolled; A1c 9's. Diabetic PASSENGER SERVICE MANAGER consulted
Essential hypertension
-Hold losartan
-Continue amlodipine
Vaping history
Full code
DVT prophylaxis�SCDs
I spent a total of 51 minutes with the patient or on the floor. More than 50% of this time involved counseling and coordination of care.
Anticipated Discharge: > 48 hours
Subjective/Interval History
-
Date of Service: August 25, 2024
denies pain
Objective Data
-
Labs:
Laboratory Results
08/25/24
06:40
WBC 6.7
Hgb 9.3 L
Hct 26.7 L
Plt Count 255
Sodium 139
Potassium 4.7
Chloride 105
Carbon Dioxide 21 L
BUN 29 H
Creatinine 1.5 H
Glucose 288 H
Calcium 8.8
Total Bilirubin 0.3
AST 19
ALT 35
Alkaline Phosphatase 144 H
Vital Signs:
Vital Signs
Temp Pulse Resp BP Pulse Ox
97.7 F 79 20 173/92 98
08/25/24 11:45 08/25/24 11:45 08/25/24 11:45 08/25/24 11:45 08/25/24 11:45
I&O
08/24/24 08/25/24 08/26/24
06:59 06:59 06:59
Intake Total 580 / 580 1020 / 1020
Output Total 1675 / 1675 1200 / 1200
Balance -1095 / -1095 -180 / -180
[2024-08-25] MEDS: DILAUDID 0.5 MG IV ×3 (13:31→21:40)
--- NOTE | 2024-08-25 15:18 | W.PN.UPDATE ---
Update Note
Progress Note Update
Patient not in his room and I was unable to locate him on the unit.
Chart reviewed and case discussed with dr martel
plan as below:
Diabetic Foot Infection
DM2 - uncontrolled
Active tobacco use - vaping
- s/p L hallux amp, 1st met resected, sesamoids removed, excisional debridement and closure of wound
- discussed with podiatry cultures are from resected tissue, clean bone margin appears to have been obtained
- pathology pending
- OR cultures CONS and K oxytoca
- agree with vanc/zosyn for now, on d/c will likely switch to orals. prefer IV while vascular workup ongoing
- follow clinically
[2024-08-25] MEDS: LR 1000 IV (16:46)
[2024-08-25 16:56] LABS: Glucose - Point of Care 249 mg/dl (70-99)
[2024-08-25] MEDS: NOVOLOG FLEXPEN-HIGH RESISTANCE 4 UNITS SC (17:41)
[2024-08-25] MEDS: LR IV (18:11)
[2024-08-25 21:39] LABS: Glucose - Point of Care 186 mg/dl (70-99)
[2024-08-26 03:43] VITALS: BP 154/83
[2024-08-26] MEDS: DILAUDID 0.5 MG IV ×2 (03:58→18:01)
[2024-08-26] MEDS: ZOSYN 50 IV ×3 (05:10→17:55)
[2024-08-26 07:20] VITALS: BP 141/80
[2024-08-26 07:34] LABS: Vancomycin Random 13.7 ug/ml
[2024-08-26 07:37] LABS: Glucose - Point of Care 203 mg/dl (70-99)
[2024-08-26 07:51] LABS: ALT (SGPT) 35 U/L (0-50); AST (SGOT) 19 U/L (17-59); Albumin 3.5 g/dl (3.5-5.0); Alkaline Phosphatase 133 U/L (38-126); Blood Urea Nitrogen 29 mg/dl (9-20); Calcium 9.1 mg/dl (8.4-10.2); Carbon Dioxide 24 mmol/L (22-30); Chloride 103 mmol/L (98-107); Estimated Creatinine Clearance 61 ml/min; Glucose 168 mg/dl (70-99); Potassium 4.8 mmol/L (3.5-5.1); Sodium 141 mmol/L (135-145); Total Bilirubin 0.4 mg/dl (0.2-1.3); Total Protein 6.4 g/dl (6.3-8.2); eGFR 49.94
[2024-08-26 08:02] LABS: % Basophils 0.7 % (0-2); % Eosinophils 1.5 % (0-6); % Immature Granulocytes 1.1 % (0-0.5); % Lymphocytes 21.4 % (20.5-51.1); % Neutrophils 67.3 % (42.2-75.2); Absolute Basophils 0.1 10^3/uL (0-0.2); Absolute Eosinophils 0.1 10^3/uL (0-0.7); Absolute Immature Granulocytes 0.1 10^3/uL (0-0.05); Absolute Lymphocytes 1.6 10^3/uL (1.2-3.4); Absolute Monocytes 0.6 10^3/uL (0.1-0.6); Hematocrit 31.7 % (39.0-52.0); Hemoglobin 10.8 g/dL (13.0-18.0); Mean Corp Hgb Conc. 34.1 g/dL (33.0-37.0); Mean Corpuscular Hgb 27.4 pg (27.0-31.0); Mean Corpuscular Volume 80.5 fL (80.0-94.0); Mean Platelet Volume 11.1 fL (7.4-10.4); Nucleated Red Blood Cells % 0 % (-); Platelet Count 346 10^3/uL (130-400); Red Blood Cell Count 3.94 10^6/uL (4.70-6.10); Red Cell Dist. Width 14.8 % (11.5-14.5); White Blood Cell Count 7.4 10^3/uL (4.8-10.8)
[2024-08-26] MEDS: NORVASC 10 MG PO (08:14)
[2024-08-26] MEDS: FARXIGA 10 MG PO (08:14)
[2024-08-26] MEDS: LANTUS 0.32 UNITS SC ×2 (08:14→21:33)
[2024-08-26] MEDS: NOVOLOG FLEXPEN 25 UNITS SC ×3 (08:15→18:02)
[2024-08-26] MEDS: NOVOLOG FLEXPEN-HIGH RESISTANCE 4 UNITS SC ×3 (08:15→18:02)
--- NOTE | 2024-08-26 09:25 | W.PN.UPDATE ---
Update Note
Progress Note Update
pt seen for fu sx
some tenderness
no f/cnbs
dressing cdi
vasc flap warm, cft intact
derm resolving cellulitis
no pus
sutures intact, resolving well
packing in place
a/p s/p 1st met resetion, sesamoidectomy---stable
cont abx
agree with ID
vasc intervention this week
packing advanced, will pull tomorrow
anticpate dc from pod standpoint tuesday /tuesday
appreciate all in put
--- NOTE | 2024-08-26 11:08 | PHA.VAN.FU ---
Vancomycin Assessment / Plan
- Assessment
Renal Function: SCR Increasing (1.5 >1.6)
WBC's are: Trending Up (6.7>7.4)
In the past 24 hrs, patient has been: Afebrile
Concomitant Antimicrobials: Piperacillin-tazobactam
- Assessment - Therapeutic Drug Monitoring
Random Level: 13.7 drawn ~19 hrs after vancomycin 1500mg IV dose given
- Dosing Plan
Dosing by Level: Re-dose today (Vancomycin 1250mg x 1 dose (~12.7mg/kg))
- Monitoring Plan
Random Level: Ordered for 08/27/24 at 06:00
- Follow Up
Pharmacy will continue to follow.
Vancomycin Follow UP
- -
Patient Age: 58
Patient Sex: Male
Vancomycin Day #: 4
Indication: Skin And Soft Tissue
Requesting Provider: Dr. Albert
Pertinent Antimicrobial Allergies:
NKDA
Height / Weight:
Height 6 ft 3 in
Actual Weight 98.231 kg
Pertinent Past Medical History: DM II, PAD
- Vital Signs / Lab Results
Temp Pulse Resp BP Pulse Ox
97.7 F 82 16 141/80 96
08/26/24 07:20 08/26/24 07:20 08/26/24 07:20 08/26/24 07:20 08/26/24 07:20
Lab Results - Hematology
08/23/24 08/24/24 08/25/24
14:18 06:23 06:40
WBC 8.0 7.7 6.7
08/26/24
06:51
WBC 7.4
Lab Results - Chemistry
08/23/24 08/24/24 08/24/24
14:18 06:23 13:42
BUN 40 H 35 H 32 H
Creatinine 1.9 H 1.5 H 1.5 H
Estimated Creat Clear 51 65 65
Albumin 3.5 3.3 L
08/25/24 08/26/24
06:40 06:51
BUN 29 H 29 H
Creatinine 1.5 H 1.6 H
Estimated Creat Clear 65 61
Albumin 3.1 L 3.5
08/23/24
14:18
Lactic Acid 0.9
Microbiology Results
08/23/24 18:45 Tissue Culture - Preliminary
Toe Klebsiella oxytoca
Coagulase neg. staphylococcus
Gram Stain - Preliminary
08/23/24 14:18 Wound Culture - Final
Toe Klebsiella oxytoca
Gram Stain - Final
08/23/24 18:45 Wound Culture - Preliminary
Foot - Left Klebsiella oxytoca
Gram Stain - Preliminary
08/23/24 18:45 Anaerobic Culture - Preliminary
Foot - Left Culture pending. Anaerobic cultures are examined after 3
days incubation. Additional information to follow.
Therapeutic Drug Monitoring
Random Vancomycin 13.7 ug/ml 08/26/24 06:51
[2024-08-26] MEDS: VANCOCIN 275 MG IV (12:00)
[2024-08-26 12:14] LABS: Glucose - Point of Care 219 mg/dl (70-99)
--- NOTE | 2024-08-26 12:59 | W.PN.HOSP.TC ---
Today's Communication/Plan
-
Monitor vital signs see plan
Vascular intervention next week
Continue with antibiotics
Pain control
cw insulin
Assessment / Plan
Assessment / Plan
General: Well Developed, Well Nourished and No Apparent Distress
HEENT: NormoCephalic, Moist mucous membranes and Atraumatic
Respiratory: Clear
Cardiac: S1/S2 and Regular Rhythm; No Murmur or Rub
GI: Soft, Non Tender, Non Distended and Normal Bowel Sounds
Musculoskeletal: No Edema
Skin: left toe bandage
Neuro: Nonfocal/grossly intact
Diabetic foot infection of left great toe partial amputation site, possible underlying osteomyelitis
# Left great toe partial amputation 3 years ago
-X-ray shows postoperative change of the great toe with prior distal phalanx removal, soft tissue swelling with subcutaneous gas
-Podiatry following; s/p hallux amp. s/p first metatarsal resection with closure 08/25.
US doppler RUSSELL noted. vascular following. plan for vascular intervention next week
-Wound culture with klebsiella
-cw absx per ID
-ID following
-Wound care
-Vascular surgery following; agram next week likely
#History of PAD with intervention of left lower extremity 3 years ago
vascular following here
# THOMAS on possible diabetic nephropathy
-Baseline creatinine unavailable
-Creatinine 1.6 now; on admission 1.9
-IV fluids
-Hold losartan
# Hyperglycemia secondary to infection
# Type 2 diabetes
-Continue Lantus 32 units twice daily due to hyperglycemia. started mealtime insulin. cw sliding scale
-Continue dapagliflozin
-High-dose sliding scale
BS uncontrolled; A1c 9's. Diabetic GROUP HOME COUNSELOR consulted
Essential hypertension
-Hold losartan
-Continue amlodipine
Vaping history
Full code
DVT prophylaxis�SCDs; pharm ppx when ok with vascular and podiatry
Anticipated Discharge: 24 - 48 hours
Subjective/Interval History
-
Date of Service: August 26, 2024
denies nausea
Objective Data
-
Labs:
Laboratory Results
08/26/24
06:51
WBC 7.4
Hgb 10.8 L
Hct 31.7 L
Plt Count 346 D
Sodium 141
Potassium 4.8
Chloride 103
Carbon Dioxide 24
BUN 29 H
Creatinine 1.6 H
Glucose 168 H
Calcium 9.1
Total Bilirubin 0.4
AST 19
ALT 35
Alkaline Phosphatase 133 H
Vital Signs:
Vital Signs
Temp Pulse Resp BP Pulse Ox
97.7 F 82 16 141/80 96
08/26/24 07:20 08/26/24 07:20 08/26/24 07:20 08/26/24 07:20 08/26/24 07:20
I&O
08/25/24 08/26/24 08/27/24
06:59 06:59 06:59
Intake Total 1020 / 1020 2550 / 2550
Output Total 1200 / 1200 2550 / 2550
Balance -180 / -180 0 / 0
[2024-08-26 15:34] VITALS: BP 142/80
[2024-08-26 16:30] LABS: Glucose - Point of Care 208 mg/dl (70-99)
[2024-08-26 21:13] LABS: Glucose - Point of Care 241 mg/dl (70-99)
[2024-08-26 23:25] VITALS: BP 141/79
[2024-08-27] MEDS: ZOSYN 50 IV ×3 (00:51→13:45)
[2024-08-27] MEDS: FLUSH (NSS) 2 FLUSH IV ×2 (00:51→06:19)
[2024-08-27 07:00] VITALS: BP 151/97
[2024-08-27 08:43] LABS: Glucose - Point of Care 429 mg/dl (70-99)
[2024-08-27 08:53] LABS: % Basophils 0.7 % (0-2); % Eosinophils 1.2 % (0-6); % Immature Granulocytes 1.5 % (0-0.5); % Lymphocytes 19.7 % (20.5-51.1); % Monocytes 9.1 % (1.7-9.3); % Neutrophils 67.8 % (42.2-75.2); Absolute Basophils 0.1 10^3/uL (0-0.2); Absolute Eosinophils 0.1 10^3/uL (0-0.7); Absolute Immature Granulocytes 0.1 10^3/uL (0-0.05); Absolute Lymphocytes 1.3 10^3/uL (1.2-3.4); Absolute Monocytes 0.6 10^3/uL (0.1-0.6); Absolute Neutrophils 4.6 10^3/uL (1.4-6.5); Hematocrit 31.5 % (39.0-52.0); Hemoglobin 10.9 g/dL (13.0-18.0); Mean Corp Hgb Conc. 34.6 g/dL (33.0-37.0); Mean Corpuscular Hgb 27.7 pg (27.0-31.0); Mean Corpuscular Volume 79.9 fL (80.0-94.0); Mean Platelet Volume 11.1 fL (7.4-10.4); Nucleated Red Blood Cells % 0 % (-); Platelet Count 344 10^3/uL (130-400); Red Blood Cell Count 3.94 10^6/uL (4.70-6.10); White Blood Cell Count 6.7 10^3/uL (4.8-10.8)
[2024-08-27 09:13] LABS: Vancomycin Random 12.4 ug/ml
[2024-08-27 09:24] LABS: ALT (SGPT) 27 U/L (0-50); AST (SGOT) 15 U/L (17-59); Albumin 3.5 g/dl (3.5-5.0); Alkaline Phosphatase 161 U/L (38-126); Blood Urea Nitrogen 32 mg/dl (9-20); Calcium 9.1 mg/dl (8.4-10.2); Carbon Dioxide 25 mmol/L (22-30); Chloride 98 mmol/L (98-107); Estimated Creatinine Clearance 57 ml/min; Glucose 417 mg/dl (70-99); Potassium 4.8 mmol/L (3.5-5.1); Sodium 138 mmol/L (135-145); Total Bilirubin 0.6 mg/dl (0.2-1.3); Total Protein 6.5 g/dl (6.3-8.2); eGFR 46.44
--- NOTE | 2024-08-27 09:24 | PN.DE.MGMTRT ---
Insulin Management
- -
08/27/2024 Diabetes Management F/U:
Patient admitted 08/23 with L foot wound pain swelling at amputation site. PMH HTN, type 2 diabetes, L great toe amputation years ago, PAD. A1C on admission 9.3% cr 1.5, eGFr 53.96. Prior to admission was taking Lantus 28 units BID with NovoLog
20 units AC, with metformin 1000 mg BID. Patient sees endocrine at [facility].
Patient is awake A/O x3, sitting up in bed, offers no complaints, able to discuss diabetes management.
Cr remains elevated 1.7 today. Glucose has remains elevated, FBG of 417 this AM, trended up to 481(V) before breakfast.
Pt has been requiring high doses of corrective insulin 4-14 units with meals.
Will increase Lantus to 36 units BID and AC NovoLog to 30 units . Cont Farxiga daily
Will follow and make further insulin adjustments if needed
Diabetes History
- -
Type of Diabetes: 2 requiring insulin
Pre-Admission Diabetes Regimen
Lab Results
Hemoglobin A1c 9.3 % (4.0-5.6) H 08/24/24 06:23
Insulin Pump Settings
IP Diabetes Regimen
08/26/24 08/26/24 08/26/24
12:13 16:29 21:05
POC Glucose 219 H 208 H 241 H
08/27/24
08:36
POC Glucose 429 H
Meal type: Lunch
Meal type: Breakfast
Amount consumed: 100%
Amount consumed: 100%
Patient Education
--- NOTE | 2024-08-27 09:42 | PHA.VAN.FU ---
Vancomycin Assessment / Plan
- Assessment
Renal Function: Stable
WBC's are: WNL
In the past 24 hrs, patient has been: Afebrile
Concomitant Antimicrobials: piperacillin/tazobactam
- Assessment - Therapeutic Drug Monitoring
Random Level: 12.4 - drawn ~20H after previous dose of 1250mg
- Dosing Plan
Dosing by Level: Re-dose today (Vanc 1250mg)
- Monitoring Plan
Random Level: 08/28 0600
- Follow Up
Pharmacy will continue to follow.
Vancomycin Follow UP
- -
Patient Age: 58
Patient Sex: Male
Vancomycin Day #: 5
Indication: Skin And Soft Tissue
Requesting Provider: Dr. Albert / [place]
Pertinent Antimicrobial Allergies:
NKDA
Height / Weight:
Height 6 ft 3 in
Actual Weight 98.231 kg
Pertinent Past Medical History: DM II, PAD
- Vital Signs / Lab Results
Temp Pulse Resp BP Pulse Ox
98.0 F 97 18 151/97 95
08/27/24 07:00 08/27/24 07:00 08/27/24 07:00 08/27/24 07:00 08/27/24 07:00
Lab Results - Hematology
08/25/24 08/26/24 08/27/24
06:40 06:51 08:06
WBC 6.7 7.4 6.7
Lab Results - Chemistry
08/24/24 08/25/24 08/26/24
13:42 06:40 06:51
BUN 32 H 29 H 29 H
Creatinine 1.5 H 1.5 H 1.6 H
Estimated Creat Clear 65 65 61
Albumin 3.1 L 3.5
08/27/24
08:06
BUN 32 H
Creatinine 1.7 H
Estimated Creat Clear 57
Albumin 3.5
Microbiology Results
08/23/24 18:45 Tissue Culture - Final
Toe Klebsiella oxytoca
Staphylococcus epidermidis
Gram Stain - Final
08/23/24 18:45 Anaerobic Culture - Preliminary
Foot - Left Culture pending. Anaerobic cultures are examined after 3
days incubation. Additional information to follow.
08/23/24 14:18 Wound Culture - Final
Toe Klebsiella oxytoca
Gram Stain - Final
08/23/24 18:45 Wound Culture - Preliminary
Foot - Left Klebsiella oxytoca
Gram Stain - Preliminary
Therapeutic Drug Monitoring
Random Vancomycin 12.4 ug/ml 08/27/24 08:06
[2024-08-27] MEDS: FARXIGA 10 MG PO (09:46)
[2024-08-27] MEDS: NORVASC 10 MG PO (09:46)
[2024-08-27 09:52] LABS: Glucose 481 mg/dl (70-99)
[2024-08-27] MEDS: NOVOLOG FLEXPEN 25 UNITS SC (09:53)
[2024-08-27] MEDS: LANTUS 0.32 UNITS SC (09:57)
[2024-08-27] MEDS: NOVOLOG FLEXPEN-HIGH RESISTANCE 14 UNITS SC (10:00)
--- NOTE | 2024-08-27 10:54 | W.PN.HOSP.TC ---
Addendum entered and electronically signed by Neetu Kimball MD 08/27/24 14:57:
Addendum
I talked to pt's PCP Dr Evangelista with [facility]
- Patient has significant history of medical non-compliance including skipping medications.
Recent history of acute lacunar CVA in July 05/2024, pt was not on aspirin upon arrival.
Creatinine around 2.29-2.24 with microalbinuria c/w diabetic nephropathy.
Hx of HTN emergency with missing medications.
End
Original Note:
Today's Communication/Plan
-
f/w vascular recommendations
Get PCP records
Assessment / Plan
Assessment / Plan
Physical exam:
General: Well Developed, Well Nourished and No Apparent Distress
HEENT: Normocephalic, Moist mucous membranes and Atraumatic
Respiratory: Clear
Cardiac: S1/S2 and Regular Rhythm; No Murmur or Rub
GI: Soft, Non Tender, Non Distended and Normal Bowel Sounds
Musculoskeletal: No Edema. Dressing left foot
Skin: no bruising
Neuro: Nonfocal/grossly intact
Psych: calm
#Diabetic foot infection of left great toe partial amputation site, possible underlying osteomyelitis
# Left great toe partial amputation 3 years ago
-X-ray shows postoperative change of the great toe with prior distal phalanx removal, soft tissue swelling with subcutaneous gas
-Podiatry following; s/p hallux amp. s/p first metatarsal resection with closure 08/25.
US Doppler RUSSELL noted. vascular following. plan for vascular intervention next week
-Wound culture with klebsiella
-cw absx per ID
-ID following
-Wound care
-Vascular surgery is consulted, will reach out to know the plan for this week
#History of PAD with intervention of left lower extremity 3 years ago
vascular following here
# THOMAS on suspected CKD stage IIIB , possible diabetic nephropathy
-Baseline creatinine unavailable, will get records from PCP
-Creatinine 1.6 now; on admission 1.9
-s/p IV fluids
-Held losartan
# Hyperglycemia secondary to infection
# Type 2 diabetes
-Continue Lantus 32 units twice daily due to hyperglycemia. started mealtime insulin. cw sliding scale
-Continue dapagliflozin
-High-dose sliding scale
BS uncontrolled; A1c 9's. Diabetic CREDIT DEPARTMENT MANAGER consulted
Essential hypertension
-Held losartan
-Continue amlodipine
- Add PRN IV Hydralazine
Vaping history
Full code
DVT prophylaxis�SCDs; pharm ppx when ok with vascular and podiatry
Total time spent to see the patient, examine the patient on the floor, review data and lab results, discuss treatment plan with patient, nursing staff around 55 minutes
Anticipated Discharge: > 48 hours
Subjective/Interval History
-
Date of Service: August 27, 2024
No chest pain
No sob
No abdominal pain
Pain in left foot is not constant
Objective Data
-
Labs:
Laboratory Results
08/27/24 08/27/24
08:06 09:21
WBC 6.7
Hgb 10.9 L
Hct 31.5 L
Plt Count 344
Sodium 138
Potassium 4.8
Chloride 98
Carbon Dioxide 25
BUN 32 H
Creatinine 1.7 H
Glucose 417 H 481 H*
Calcium 9.1
Total Bilirubin 0.6
AST 15 L
ALT 27
Alkaline Phosphatase 161 H
Vital Signs:
Vital Signs
Temp Pulse Resp BP Pulse Ox
98.0 F 97 18 151/97 95
08/27/24 07:00 08/27/24 07:00 08/27/24 07:00 08/27/24 07:00 08/27/24 07:00
I&O
08/26/24 08/27/24 08/28/24
06:59 06:59 06:59
Intake Total 2550 / 2550 1200 / 1200 1060 / 1060
Output Total 2550 / 2550 1800 / 1800 750 / 750
Balance 0 / 0 -600 / -600 310 / 310
[2024-08-27 12:13] LABS: Glucose - Point of Care 284 mg/dl (70-99)
[2024-08-27] MEDS: NOVOLOG FLEXPEN-HIGH RESISTANCE 7 UNITS SC (12:14)
--- NOTE | 2024-08-27 13:56 | PTCARENOTE ---
RN removed packing and applied dry dressing per podiatry order. Podiatry MD to stop by after office hours today to see patient. Wound is clean,dry, sutures intact, no ordor, no drainage.
--- NOTE | 2024-08-27 14:26 | W.PN.ID1 ---
Date of Service
Date of Service: August 27, 2024
Today's Communication
start doxycycline and oral metronidazole 500 mg PO BID; stopped vancomycin and zosyn - duration pending course
Assessment / Plan
Diabetic Foot Infection
DM2 - uncontrolled
Active tobacco use - vaping
- s/p L hallux amp, 1st met resected, sesamoids removed, excisional debridement and closure of wound
- discussed with podiatry cultures are from resected tissue, clean bone margin appears to have been obtained
- pathology still pending
- OR cultures CONS and K oxytoca
- start doxycycline and oral metronidazole 500 mg PO BID; stopped vancomycin and zosyn - duration pending course
- hyperglycemia management per IM service - tight glucose control recommended
- I have counseled patient with the risks of ongoing nicotine use (including vaping) and uncontrolled DM2 including reinfection, relapse of wound, progression of PAD
- follow clinically
Chief Complaint
-: Other (diabetic foot infection)
Subjective / Review of Systems
afebrile
bp stable
Vital Signs / Physical Exam
Vital Signs
Vital Signs
Temp Pulse Resp BP Pulse Ox
98.0 F 97 18 151/97 95
08/27/24 07:00 08/27/24 07:00 08/27/24 07:00 08/27/24 07:00 08/27/24 07:00
Physical Exam
Constitutional: No Acute Distress and Chronically Ill
Cardiovascular: Regular Rate and S1/S2; Negative Murmur or Rub
Pulmonary: Clear and Symmetric; Negative Wheezes or Rales
Gastrointestinal: Soft, Non Tender, Non Distended and Normal Bowel Sounds
Skin: Warm and Dry; Negative Rash or Jaundice
Wound: Other (surgical site healing with minimal eythema, no tenderness, no drainage, no dehiscence )
Lines: PIV
Objective Data
Lab Data
Lab Results
08/27/24 08:06
08/27/24 09:21
Estimated Creat Clear 57 ml/min 08/27/24 08:06
Lactic Acid 0.9 mmol/L (0.7-2.0) 08/23/24 14:18
Total Bilirubin 0.6 mg/dl (0.2-1.3) 08/27/24 08:06
AST 15 U/L (17-59) L 08/27/24 08:06
ALT 27 U/L (0-50) 08/27/24 08:06
Alkaline Phosphatase 161 U/L (38-126) H 08/27/24 08:06
Most recent labs reviewed.
Micro Results:
08/23/24 18:45 Anaerobic Culture - Preliminary
Foot - Left Culture pending. Anaerobic cultures are examined after 3
days incubation. Additional information to follow.
08/23/24 18:45 Tissue Culture - Final
Toe Klebsiella oxytoca
Staphylococcus epidermidis
Gram Stain - Final
08/23/24 14:18 Wound Culture - Final
Toe Klebsiella oxytoca
Gram Stain - Final
08/23/24 18:45 Wound Culture - Preliminary
Foot - Left Klebsiella oxytoca
Gram Stain - Preliminary
[2024-08-27] MEDS: NOVOLOG FLEXPEN 30 UNITS SC ×2 (14:41→18:04)
[2024-08-27 15:00] VITALS: BP 139/84
--- NOTE | 2024-08-27 16:07 | CM ---
CM reviewed chart, anticipated discharge >48 hours. CM will watch for VN/wound care needs upon discharge. CM will continue to follow for all discharge planning needs.
Plan; home, watch for VN needs.
[2024-08-27 16:31] LABS: Glucose - Point of Care 233 mg/dl (70-99)
--- NOTE | 2024-08-27 16:43 | W.PN.UPDATE ---
Update Note
Progress Note Update
pt seen for fu amp/1st met resection left foot
no pain
no f\\/chute tender
packing pulled
vasc vasc tests tomorrow
derm sutures intact, edges viable, no edema
mild erythema
cellulitis resolved
no pus
no odor
a/p s/p 1st met resection/sesamoidectomy--stable for dc from pod standpt
fu in offcie this week
just dry bandages changes order
nwb left foot
will sign off
[2024-08-27] MEDS: NOVOLOG FLEXPEN-HIGH RESISTANCE 4 UNITS SC (17:40)
[2024-08-27 20:14] LABS: Glucose - Point of Care 250 mg/dl (70-99)
[2024-08-27] MEDS: FLAGYL 500 MG PO (20:14)
[2024-08-27] MEDS: LANTUS 0.36 UNITS SC (20:14)
[2024-08-27] MEDS: VIBRAMYCIN 100 MG PO (20:14)
[2024-08-27 21:54] LABS: Glucose - Point of Care 199 mg/dl (70-99)
[2024-08-27 23:20] VITALS: BP 135/81
[2024-08-28] VITALS (21 sets, daily range): BP systolic 14–155; BP diastolic 70–89
[2024-08-28 06:58] LABS: Hematocrit 33.7 % (39.0-52.0); Hemoglobin 11.5 g/dL (13.0-18.0); Mean Corp Hgb Conc. 34.1 g/dL (33.0-37.0); Mean Corpuscular Hgb 26.7 pg (27.0-31.0); Mean Corpuscular Volume 78.4 fL (80.0-94.0); Platelet Count 364 10^3/uL (130-400); Red Cell Dist. Width 15.1 % (11.5-14.5); White Blood Cell Count 7.5 10^3/uL (4.8-10.8)
[2024-08-28 06:59] LABS: INR 1.07; PT 13.7 Sec (11.4-14.6)
[2024-08-28 07:00] LABS: APTT 33.9 Sec (23.4-35.0)
[2024-08-28 07:19] LABS: Blood Urea Nitrogen 32 mg/dl (9-20); Calcium 9.3 mg/dl (8.4-10.2); Carbon Dioxide 24 mmol/L (22-30); Chloride 100 mmol/L (98-107); Estimated Creatinine Clearance 61 ml/min; Glucose 240 mg/dl (70-99); Sodium 139 mmol/L (135-145); eGFR 49.94
[2024-08-28 07:27] LABS: Glucose - Point of Care 300 mg/dl (70-99)
--- NOTE | 2024-08-28 08:00 | PN.DE.MGMTRT ---
Insulin Management
- -
08/28/2024 Diabetes Management Follow up:
Patient admitted 08/23 with L foot wound pain swelling at amputation site. PMH HTN, type 2 diabetes, L great toe amputation years ago, PAD. A1C on admission 9.3% cr 1.5, eGFr 53.96. Prior to admission was taking Lantus 28 units BID with NovoLog
20 units AC, with metformin 1000 mg BID. Patient sees endocrine at [facility].
Patient is awake A/O x3, sitting up in bed, offers no complaints, able to discuss diabetes management.
Cr remains elevated 1.6, eGFR 49.94 today. Glucose has remains elevated, FBG of 300 this AM.
Pt has been requiring high doses of corrective insulin 4-14 units with meals.
Lantus increased to 36 units BID, first dose 08/27 @ hs. AC NovoLog increased to 30 units high corrective reduced to moderate corrective and Farxiga daily. Patient is NPO for procedure. Will follow and make further insulin adjustments if needed
Diabetes History
- -
Type of Diabetes: 2 requiring insulin
Pre-Admission Diabetes Regimen
08/27/24 08/28/24
08:06 06:21
Creatinine 1.7 H 1.6 H
Lab Results
Hemoglobin A1c 9.3 % (4.0-5.6) H 08/24/24 06:23
Insulin Pump Settings
IP Diabetes Regimen
08/27/24 08/27/24 08/27/24
08:06 08:36 09:21
Glucose 417 H 481 H*
POC Glucose 429 H
08/27/24 08/27/24 08/27/24
12:11 16:20 20:13
Glucose
POC Glucose 284 H 233 H 250 H
08/27/24 08/28/24 08/28/24
21:50 06:21 07:25
Glucose 240 H
POC Glucose 199 H 300 H
Meal type: Dinner
Meal type: Lunch
Amount consumed: 100%
Amount consumed: 100%
Patient Education
[2024-08-28] MEDS: NOVOLOG FLEXPEN SC ×2 (08:58→12:24)
[2024-08-28] MEDS: NSS 1000 IV (09:00)
[2024-08-28] MEDS: NORVASC 10 MG PO (09:01)
[2024-08-28] MEDS: FLAGYL 500 MG PO ×2 (09:01→20:51)
[2024-08-28] MEDS: VIBRAMYCIN 100 MG PO ×2 (09:01→20:52)
[2024-08-28] MEDS: LOW STRENGTH ASPIRIN 81 MG PO (09:01)
[2024-08-28] MEDS: NOVOLOG FLEXPEN-MODERATE RESISTANCE 5 UNITS SC (09:04)
[2024-08-28] MEDS: LANTUS 0.36 UNITS SC ×2 (09:29→22:27)
--- NOTE | 2024-08-28 09:53 | W.PN.HOSP.TC ---
Today's Communication/Plan
-
IVF lluvia- procedure
Oral Abx
Insulin therapy
NPO for now.
Assessment / Plan
Assessment / Plan
Physical exam:
General: Well Developed, Well Nourished and No Apparent Distress
HEENT: Normocephalic, Moist mucous membranes and Atraumatic
Respiratory: Clear
Cardiac: S1/S2 and Regular Rhythm; No Murmur or Rub
GI: Soft, Non Tender, Non Distended and Normal Bowel Sounds
Musculoskeletal: No Edema. Dressing left foot
Skin: no bruising
Neuro: Nonfocal/grossly intact
Psych: calm
#Diabetic foot infection of left great toe partial amputation site, possible underlying osteomyelitis
# Left great toe partial amputation 3 years ago
-X-ray shows postoperative change of the great toe with prior distal phalanx removal, soft tissue swelling with subcutaneous gas
- s/p hallux amp. s/p first metatarsal resection /sesamoidectomy with closure 08/[address] Holden.
-Wound culture with klebsiella
-s/p IV Abx, now on metronidazole and doxycycline 08/27.
-ID & podiatry followed.
-Wound care ordered.
#Recent history of acute lacunar CVA in July 05/2024, ( he had 10 minutes left sided numbness of face and left upper extremity)
Restarted back on aspirin
Pt stopped statin due to muscle weakness and myopathy he experienced. Will leave this to PCP to consider alternative options.
Hx of HTN emergency with missing medications.
# Hx of medical non compliance
I talked to pt's PCP Dr Evangelista with [facility]
D/w patient at length, he verbalized understanding to importance of following instructions and compliance.
#History of PAD with intervention of left lower extremity 3 years ago
vascular is doing arteriogram today
IVF lluvia-procedure.
# THOMAS on suspected CKD stage IIIB , possible diabetic nephropathy
-Baseline creatinine unavailable, will get records from PCP
-Creatinine 1.6 now; on admission 1.9
Creatinine in OP around 2.29-2.24 with microalbinuria c/w diabetic nephropathy.
-s/p IV fluids, will give IVF pre-procedure for renal preparation.
-Held losartan
# Hyperglycemia secondary to infection
# Type 2 diabetes
-Continue Lantus 32 units twice daily due to hyperglycemia. started mealtime insulin. cw sliding scale
-Continue dapagliflozin
-High-dose sliding scale
- Stopped metformin
BS was uncontrolled; A1c 9's. Diabetic OCCUPATIONAL HEALTH COORDINATOR consulted
Essential hypertension
-Held losartan
-Continue amlodipine
- Add PRN IV Hydralazine
#Vaping history
#Full code
DVT prophylaxis�SCDs; pharm ppx when ok with vascular and podiatry
Total time spent to see the patient, examine the patient on the floor, review data and lab results, discuss treatment plan with patient, nursing staff around 55 minutes
Anticipated Discharge: 24 - 48 hours
Subjective/Interval History
-
Date of Service: August 28, 2024
No chest pain
No sob
No sob
No fevers
Objective Data
-
Labs:
Laboratory Results
08/28/24
06:21
WBC 7.5
Hgb 11.5 L
Hct 33.7 L
Plt Count 364
PT 13.7
INR 1.07
APTT 33.9
Sodium 139
Potassium 5.0
Chloride 100
Carbon Dioxide 24
BUN 32 H
Creatinine 1.6 H
Glucose 240 H
Calcium 9.3
Vital Signs:
Vital Signs
Temp Pulse Resp BP Pulse Ox
98.3 F 98 19 131/86 97
08/28/24 07:40 08/28/24 07:40 08/28/24 07:40 08/28/24 07:40 08/28/24 07:40
I&O
08/27/24 08/28/24 08/29/24
06:59 06:59 06:59
Intake Total 1200 / 1200 2009
Output Total 1800 / 1800 2800 / 2800
Balance -600 / -600 -790 / -790
[2024-08-28] MEDS: NOVOLOG FLEXPEN-HIGH RESISTANCE SC (12:06)
[2024-08-28 12:18] LABS: Glucose - Point of Care 216 mg/dl (70-99)
--- NOTE | 2024-08-28 12:39 | CM ---
CM reviewed chart, met with patient. Patient would like VN upon discharge, will send referral to [facility] in [facility] closer to discharge. CM will continue to follow for all discharge planning needs.
Plan; home with [facility] when stable, pending acceptance.
[2024-08-28] MEDS: NOVOLOG FLEXPEN-MODERATE RESISTANCE 3 UNITS SC (13:14)
[2024-08-28 17:00] LABS: Glucose - Point of Care 151 mg/dl (70-99)
--- NOTE | 2024-08-28 17:34 | W.SUR.PREOP ---
Pre-Operative Surgical Note
-
I have examined this patient prior to the performance of the scheduled procedure.
The patient's condition is unchanged from the time of the current History and
Physical and the patient is able to undergo the scheduled procedure.
--- NOTE | 2024-08-28 18:47 | OR.RPT ---
Operative Report
Operative Report
Date of Operation: 08/28/2024
Pre Op Diagnosis: Chronic limb threatening ischemia, left lower extremity manifested by toe wound and associated infection
Post Op Diagnosis: Chronic limb threatening ischemia, left lower extremity manifested by toe wound and associated infection
Procedure:
1.) Diagnostic left lower extremity arteriogram
2.) Ultrasound-guided percutaneous ANTEGRADE access to the left common femoral artery
Surgeon: Kar Tom III, MD
Lugger: Haily Sutherland MD PGY-8
Anesthesia: Sedation with local
Fluoroscopy:
7.9 min
36 mGy
6.67 Gy.cm2
Complications: None
Estimated Blood Loss: Less than 10 cc
History and Indications for Procedure: 58-year-old male with chronic limb threatening ischemia of the left lower extremity
Procedure in Detail: Seb Walker was correctly identified and placed supine on the operating table. After adequate induction of anesthesia the bilateral groins were prepped and draped in the usual sterile fashion. A timeout was performed with the
nursing and anesthesia staff confirming the patient's identity as well as the nature and laterality of the procedure.
The left common femoral artery and femoral bifurcation were identified under ultrasound guidance. The artery was patent. The superior and inferior aspects of the femoral head were identified with radiographic guidance and marked at the skin level.
The proposed puncture site was infiltrated with local anesthesia. We saved a copy of the ultrasound image to the medical record. Under ultrasound guidance we accessed the very proximal left superficial femoral artery with a micropuncture needle,
selected the superficial femoral artery and upsized to a 5 Fr sheath over a Bentson wire.
A diagnostic left lower extremity arteriogram was then performed which demonstrated the following:
LEFT LOWER EXTREMITY:
Superficial femoral artery: Widely patent with no stenosis identified
Popliteal artery: Patent above the knee with no stenosis identified. High-grade stenosis below the knee.
Anterior tibial artery: Occluded. Limited reconstitution of the distal anterior tibial artery. Dorsalis pedis artery heavily diseased and appears occluded in the mid foot.
Tibioperoneal trunk: Occluded
Peroneal artery: Limited reconstitution in the mid calf but occluded distally
Posterior tibial artery: Occluded proximally. Reconstitutes at the ankle. Is a robust distal target for bypass. Continues across the ankle into the foot to form plantar branches which supply the forefoot. Small vessel disease is identified in
this distribution
Satisfied with this result we concluded the procedure. The 5 Hebrew sheath was pulled and direct manual pressure was held over the puncture site. Hemostasis was achieved. A sterile dressing was applied.
The patient tolerated the procedure well and was taken to the recovery area in stable condition.
Attestation: I was present and responsible for the entire procedure.
Signed:
Kar Tom III, MD
[facility]
[phone] ([phone])
[2024-08-28 19:05] LABS: Glucose - Point of Care 140 mg/dl (70-99)
--- NOTE | 2024-08-28 19:45 | PTCARENOTE ---
Pt received from PACU in bed s/p LLE arteriogram. Instructed on activity restrictions and plan of care. Pt very vocal about displeasure of hospital stay so far (environment, timing of procedure, not liking the food or getting enough, etc...)
Attempted to educate on dietary restrictions to help manage diabetes, pt responds that 'being here caused elevated blood sugars' not receptive to ongoing education. L groin site c/d/i, + tibial pulses w/doppler bilaterally, bilateral LE warm with
decreased sensation (pt reports as baseline). Post procedure NSS infusing via #22 RAC without complication. L foot dressing c/d/i. Call dow within reach. Plan of care ongoing.
[2024-08-28] MEDS: FARXIGA PO (20:50)
[2024-08-28] MEDS: NOVOLOG FLEXPEN-MODERATE RESISTANCE SC (20:51)
[2024-08-28] MEDS: NOVOLOG FLEXPEN 30 UNITS SC (20:52)
[2024-08-28 21:41] LABS: Glucose - Point of Care 195 mg/dl (70-99)
[2024-08-28] MEDS: NSS 300 IV (23:21)
[2024-08-28] MEDS: NSS IV (23:24)
[2024-08-29 03:52] VITALS: BP 122/75
[2024-08-29 07:00] VITALS: BP 169/108
[2024-08-29 07:37] LABS: Glucose - Point of Care 251 mg/dl (70-99)
--- NOTE | 2024-08-29 07:49 | PN.DE.MGMTRT ---
Insulin Management
- -
08/29/2024 Diabetes Management Follow up:
Patient admitted 08/23 with L foot wound pain swelling at amputation site. PMH HTN, type 2 diabetes, L great toe amputation years ago, PAD. A1C on admission 9.3% cr 1.5, eGFr 53.96. Prior to admission was taking Lantus 28 units BID with NovoLog
20 units AC, with metformin 1000 mg BID. Patient sees endocrine at [facility].
Patient is awake A/O x3, sitting up in bed, offers no complaints, able to discuss diabetes management.
Cr remains elevated 1.6, eGFR 49.94 today. Glucose has remains elevated, FBG of 251 this AM. Patient was NPO 08/28 glucose responded to no PO intake down to 151.
Lantus increased to 36 units BID, first dose 08/27 @ hs. Will increase AC NovoLog to 35 units with moderate corrective and Farxiga daily. Will follow and make further insulin adjustments if needed.
Patient for OR possibly 08/31 or 09/03 for bypass for optimal healing.
Diabetes History
- -
Type of Diabetes: 2 requiring insulin
Pre-Admission Diabetes Regimen
Lab Results
Hemoglobin A1c 9.3 % (4.0-5.6) H 08/24/24 06:23
Insulin Pump Settings
IP Diabetes Regimen
08/28/24 08/28/24 08/28/24
12:17 16:48 19:04
POC Glucose 216 H 151 H 140 H
08/28/24 08/29/24
21:30 07:27
POC Glucose 195 H 251 H
Patient Education
--- NOTE | 2024-08-29 08:33 | CON.CAR ---
Addendum entered and electronically signed by Cathleen Smith DO 08/29/24 21:38:
I saw and evaluated the patient. I reviewed the resident�s note and agree with findings and plan as documented in the resident�s note.
I had the pleasure to meet Seb Walker for preoperative cardiac risk assessment. Konrad is a 58-year-old male with PMH of hypertension, PAD, uncontrolled type diabetes with neuropathy, CRI ?HTN/DM, HLD, lacunar infarct, tobacco abuse/ current vaping
and noncompliance with prior partial left hallux amputation 3 years ago. He presented to ED on 08/23/2024 with failed outpatient treatment of diabetic foot infection of left great toe partial amputation site, possible underlying osteomyelitis. He
was seen by Podiatry and underwent I&D 08/23 and than 1st metatarsal head resection left foot and closure of wound left foot 08/25/24. He was also seen by Vascular surgery s/p Diagnostic left lower extremity arteriogram 08/28/[address] Tom. Patient
does not have endovascular option for optimal revascularization and he was recommended for surgical bypass recommendation is for bypass during this admission [either Friday 08/31 or Monday 09/03]. He reports seeing cardiology at [facility] > 10 years ago
with a stress test. No recent cardiology care. He denies known CAD or prior VA. He denies CHF/CM. He states he is active with regular walking; A few months prior he reports he walked miles around [place] with his girlfriend without cardiac
limiting symptoms. Patient denies chest pain, shortness of breath, palpitations, fever, chills. He quit cigarette use but is actively vaping and found to be vaping in his room.
General: No acute distress, AAOX3
Neck: Negative JVD
Heart: Regular, positive S1/S2, No murmur
Lungs: CTA b/l, negative wheezes/rales/rhonchi
Abd: Positive BS, NT/ND, neg rebound/rigidity/guarding
Ext: no edema. Left foot dressing intact. groin site ok
Plan:
PAD with diabetic wound infection at site of prior amputation s/p I&D 08/23/24 and s/p 1st met resection, sesamoids removed, excisional debridement and closure of wound 08/25/24
-Consults reviewed from Podiatry, Vascular surgery and ID
-IV antibiotics awaiting OR wound cultures
-Peripheral angiogram 08/28 with vascular surgery reviewed- He does not have endovascular option for optimal revascularization and he was recommended for surgical bypass
- 12 lead EKG ordered and reviewed: NORMAL SINUS RHYTHM. MINIMAL VOLTAGE CRITERIA FOR LVH, MAY BE NORMAL VARIANT ( R in aVL ). BORDERLINE ECG
- 2D echocardiogram ordered and reviewed: Normal biventricular size and systolic function without regional wall motion abnormality. Mild concentric left ventricular hypertrophy. Left ventricular ejection fraction estimated by volumetric assessment
55-60%. Normal diastolic function. Trileaflet, sclerotic aortic valve without stenosis or significant regurgitation. No significant mitral or tricuspid valve pathology
- No symptoms of angina or CHF at fair exercise capacity estimated 5-7 METS
-He is moderate CV risk but stable and may proceed with surgery as planned.
HTN
-BP currently stable
-Add beta daina
-ARB held due to RI and IV dye exposure- given DM resume after surgery if renal function allows
-Goal normotension
Type 2 DM , uncontrolled with HBA1C 9.3%
-He does intermittently wear CGM
-Recommend OP endocrine follow up
-Defer to Primary and DM ORTHODONTIC TECHNICIAN ASSISTANT
-OP metformin held due to CRI/IV dye exposure
-Goal normoglycemia
Recent history of acute lacunar CVA in July 05/2024, (he had 10 minutes left sided numbness of face and left upper extremity)
-ASA 81mg daily
-He reports myalgias on statins and we discussed potential use of PCSK9 inh as outpatient but for now would start high intensity statin
-Goal LDL < 55mg/dL
Tobacco dependance/Active vaping
-Cessation strongly advised.
AoAKI on suspected CKD stage IIIB , possible diabetic nephropathy
-Creatinine 1.6 now; on admission 1.9
-Creatinine in OP around 2.29-2.24 with microalbinuria c/w diabetic nephropath
Will follow with you
Original Note:
Consultation
Consultation Request
Date/Time Consultation Requested: 08/29/2024 06: 38
Date/Time Consultation Performed: 08/29/2024 08: 58
Requesting Provider: Neetu Kimball MD
Performing Provider: Cathleen Smith DO
Reason for Consultation: Pre-op evaluation
Medical History
-
Chief Complaint: Nonhealing left great toe wound
History of Present Illness:
This is a 58-year-old male with PMH of essential hypertension, PAD, uncontrolled diabetes with partial left great toe amputation who presented to ED on 08/23/2024 with a 10-day history of worsening swelling, pain and redness at the site of the
amputation. Patient had a prior intervention for his PAD outside this hospital in 2021 but is noncompliant with follow-up. A left lower extremity arteriogram with possible endovascular intervention was recommended due to chronic limb threatening
ischemia and nonpalpable pedal pulses on the left foot which was completed on 08/28/2024. Because patient does not have endovascular option for optimal medical vascularization, vascular surgery is planning for bypass tentatively in 2 days.
Cardiology was consulted for preoperative evaluation and recommendations. Patient denies chest pain, shortness of breath, palpitations, fever, chills. He states that he can walk a block without significant chest pain or shortness of breath.
Past Medical History
Past Medical History: CVA, HTN, Hypercholesterolemia, IDDM and Renal Failure
Past Surgical History: Orthopedic (Left great toe partial amputation)
Social History
Tobacco: Vaping
Alcohol: None
Drug: None
Family History
Family History: Reviewed & Not Pertinent
Allergies / Home Medications
Allergy/AdvReac Type Severity Reaction Status Date / Time
No Known Allergies Allergy Verified 08/23/24 13:13
�Medication �Instructions �Recorded �Confirmed �Type
amlodipine 10 mg tablet 10 mg PO DAILY Blood Pressure 08/23/24 08/23/24 History
insulin aspart U-100 100 unit/mL 20 unit SC MEALS Diabetes 08/23/24 08/23/24 History
(3 mL) subcutaneous pen (Novolog
FlexPen U-100 Insulin aspart)
insulin glargine 100 unit/mL (3 28 unit SC BID Diabetes 08/23/24 08/23/24 History
mL) subcutaneous pen (Lantus
Solostar U-100 Insulin)
losartan 100 mg tablet 100 mg PO DAILY Blood Pressure 08/23/24 08/23/24 History
omadacycline 150 mg tablet (Nuzyra) 150 mg PO BID Infection 08/23/24 08/23/24 History
tadalafil 20 mg tablet 20 mg PO DAILYPRN PRN ed 08/23/24 08/23/24 History
Review of Systems
-
History Source: Patient
All other systems: Negative unless noted
Constitutional: No Symptoms
Respiratory: No Symptoms
Cardiac: No Symptoms, Chest Pain (Negative) and Palpitations (Negative)
Abdomen/GI: No Symptoms
Physical Exam
Vital Signs
Temp Pulse Resp BP Pulse Ox
97.6 F 76 18 122/75 98
08/29/24 03:52 08/29/24 03:52 08/29/24 03:52 08/29/24 03:52 08/29/24 03:52
Lab Results
08/28/24 06:21
08/28/24 06:21
Physical Exam
General: Well Developed, No Apparent Distress and Comfortable; Negative Respiratory Distress, Fever or Chills
Respiratory: Clear and Non Labored Respirations; Negative Wheezes, Crackles or Rhonchi
Cardiac: S1/S2; Negative Murmur, Rub or Peripheral Edema
GI: Soft, Non Tender and Non Distended
Neuro: Awake, Alert, Oriented and AO x 3
Psych: Calm
Impression / Plan
-
Assessment:
58-year-old male with past medical history of PAD, uncontrolled diabetes and prior partial left great toe amputation, and essential hypertension who presented to ED with pain, swelling and redness on the amputation site. Following arteriogram,
vascular bypass is being planned and cardiology was consulted for evaluation and recommendation.
Impression:
Preop evaluation
History of peripheral arterial disease
Uncontrolled diabetes mellitus II
Essential hypertension
Plan:
Preop evaluation
-No prior history of ischemic heart disease or CHF; Preop creatinine 1.6 (< 2.0). However, with the history of PAD and IDDM, this puts patient at a moderate risk based on the revised cardiac risk index for this low risk procedure.
-Patient is able to perform 4 METS (able to walk a block without significant shortness of breath or chest pain).
-Patient stands acceptable risk for the planned procedure.
History of peripheral arterial disease
-Patient's past medical history, EKG and labs reviewed. Patient able to perform 4 METS.
-Nonhealing left hallux most likely due to poor blood flow vs uncontrolled diabetes.
-S/p arteriogram 08/28/2024 with no and further vascular option for optimal vascularization for left nonhealing wound.
-Vein mapping today with plan for bypass tentatively in 2 days.
-Check echo.
-EKG ordered.
Uncontrolled diabetes mellitus II
-Continue insulin per protocol.
-Continue dapagliflozin
Essential hypertension
-Agreed to continue amlodipine and hydralazine for uncontrolled hypertension.
-Hold losartan.
-Monitor creatinine.
Data Reviewed
-
Ultrasound: Image Personally Visualized and interpreted and Report Reviewed by me
Labs: Labs Reviewed by me and Discussed with Physician
Old Records: Reviewed
--- NOTE | 2024-08-29 08:39 | W.PN.VS ---
Today's Communication / Plan
-
See below.
Assessment/Plan
-
Assessment: 48-year-old male POD #1 Diagnostic left lower extremity arteriogram
Plan:
Patient does not have endovascular option for optimal revascularization for healing of left foot wound, surgical recommendation is for bypass during this admission
Will obtain bilateral lower extremity vein mapping for surgical planning, will discuss surgical recommendations following results of ultrasound
Tentative OR for either this Tuesday (08/31/24) or Tuesday (09/03/24)
Subjective Data
-
Date of Service: August 29, 2024
Patient seen and examined at bedside, denies pain or swelling at left groin puncture site. Denies nausea, vomiting, fever, and chills. Tolerating p.o. intake.
Objective Data
-
Vital Signs
Temp Pulse Resp BP Pulse Ox
97.6 F 76 18 122/75 98
08/29/24 03:52 08/29/24 03:52 08/29/24 03:52 08/29/24 03:52 08/29/24 03:52
Intake and Output
08/28/24 08/29/24 08/30/24
06:59 06:59 06:59
Intake Total 2009 1740 / 1740
Output Total 2800 / 2800 1100 / 1100
Balance -790 / -790 640 / 640
Intake:
Oral fluids 1910 / 1910 1440 / 1440
IV fluids (Total) 300 / 300
IV piggybacks 100 / 100
Output:
Urine, Voided 2800 / 2800 1100 / 1100
Other:
Number of approximated MODERATE 3
amounts of urine
Lab Results
08/28/24 06:21
08/28/24 06:21
Calcium 9.3 mg/dl (8.4-10.2) 08/28/24 06:21
Total Bilirubin 0.6 mg/dl (0.2-1.3) 08/27/24 08:06
AST 15 U/L (17-59) L 08/27/24 08:06
ALT 27 U/L (0-50) 08/27/24 08:06
Alkaline Phosphatase 161 U/L (38-126) H 08/27/24 08:06
Total Protein 6.5 g/dl (6.3-8.2) 08/27/24 08:06
Albumin 3.5 g/dl (3.5-5.0) 08/27/24 08:06
Physical Exam
-
AAOx3, no apparent distress
No tachycardia
No dyspnea
ABD flat, nontender, nondistended
Left groin CDI, no hematoma, all surrounding compartments soft
Left foot postoperative dressing CDI
[2024-08-29] MEDS: NOVOLOG FLEXPEN-MODERATE RESISTANCE 5 UNITS SC ×2 (08:56→14:05)
[2024-08-29] MEDS: VIBRAMYCIN 100 MG PO ×2 (08:57→19:30)
[2024-08-29] MEDS: NOVOLOG FLEXPEN 35 UNITS SC ×3 (08:57→17:47)
[2024-08-29] MEDS: FARXIGA 10 MG PO (08:57)
[2024-08-29] MEDS: NORVASC 10 MG PO (08:58)
[2024-08-29] MEDS: LOW STRENGTH ASPIRIN 81 MG PO (08:59)
[2024-08-29] MEDS: FLAGYL 500 MG PO ×2 (09:00→19:30)
[2024-08-29] MEDS: LANTUS 0.36 UNITS SC ×2 (09:01→22:09)
[2024-08-29] MEDS: NOVOLOG FLEXPEN SC (09:39)
--- NOTE | 2024-08-29 10:03 | W.PN.HOSP.TC ---
Today's Communication/Plan
-
f/w vein mapping/ US
Order echo
Adjust insulin
Monitor BP, high- stress related
f/w cardiology recommendations
Assessment / Plan
Assessment / Plan
Physical exam:
General: Well Developed, Well Nourished and No Apparent Distress
HEENT: Normocephalic, Moist mucous membranes and Atraumatic
Respiratory: Clear
Cardiac: S1/S2 and Regular Rhythm; No Murmur or Rub
GI: Soft, Non Tender, Non Distended and Normal Bowel Sounds
Musculoskeletal: No Edema. Dressing left foot
Skin: no bruising
Neuro: Nonfocal/grossly intact
Psych: calm
#Diabetic foot infection of left great toe partial amputation site, possible underlying osteomyelitis
# Left great toe partial amputation 3 years ago
-X-ray shows postoperative change of the great toe with prior distal phalanx removal, soft tissue swelling with subcutaneous gas
- s/p hallux amp. s/p first metatarsal resection /sesamoidectomy with closure 08/[address] Holden.
-Wound culture with klebsiella
-s/p IV Abx, now on metronidazole and doxycycline 08/27.
-ID & podiatry followed.
-Wound care ordered.
# PVD
S/p arteriogram on 08/28 that showed no endovascular option for optimal revascularization for healing of left foot wound, d/w vascular, plan for bypass. Vein Mapping today. Order echo, consulted cardiology for pre-op evaluation.
#Recent history of acute lacunar CVA in July 05/2024, ( he had 10 minutes left sided numbness of face and left upper extremity)
Restarted back on aspirin
Pt stopped statin due to muscle weakness and myopathy he experienced. Will leave this to PCP to consider alternative options.
#Hx of HTN emergency with missing medications.
# Hx of medical non compliance
I talked to pt's PCP Dr Evangelista with [facility]
D/w patient at length, he verbalized understanding to importance of following instructions and compliance.
#History of PAD with intervention of left lower extremity 3 years ago
vascular is doing arteriogram today
IVF lluvia-procedure.
# THOMAS on suspected CKD stage IIIB , possible diabetic nephropathy
-Baseline creatinine unavailable, will get records from PCP
-Creatinine 1.6 now; on admission 1.9
Creatinine in OP around 2.29-2.24 with microalbinuria c/w diabetic nephropathy.
-s/p IV fluids, s/p IVF pre-procedure for renal preparation.
-Held losartan, continue to hold.
# Hyperglycemia secondary to infection
# Type 2 diabetes
-Adjusting long acting insulin and pre-meal doses. cw sliding scale
-Continue dapagliflozin
- sliding scale
- Stopped metformin
BS was uncontrolled; A1c 9's. Diabetic HAND PACKER/PACKAGER consulted
Essential hypertension
uncontrolled this morning, will monitor. I think it is stress related with plan for a surgery.
-Held losartan
-Continue amlodipine
- Add PRN IV Hydralazine
#Vaping history
#Full code
DVT prophylaxis�SCDs; pharm ppx when ok with vascular and podiatry
Pt reported that sister and brother can be his contact if needed.
Total time spent to see the patient, examine the patient on the floor, review data and lab results, discuss treatment plan with patient, nursing staff around 55 minutes
Anticipated Discharge: > 48 hours
Subjective/Interval History
-
Date of Service: August 29, 2024
No chest pain
No sob
No fevers
Objective Data
-
Vital Signs:
Vital Signs
Temp Pulse Resp BP Pulse Ox
97.7 F 108 28 165/108 97
08/29/24 07:00 08/29/24 08:58 08/29/24 07:00 08/29/24 08:58 08/29/24 07:00
I&O
1008/29/24 08/30/24
06:59 06:59 06:59
Intake Total 2009 1740 / 1740
Output Total 2800 / 2800 1100 / 1100
Balance -790 / -790 640 / 640
--- NOTE | 2024-08-29 11:34 | CM ---
CM reviewed chart, met with patient. Patient for OR this Tuesday or next Tuesday. Patient inquiring if he is able to leave the floor, having a difficult time staying in room. CM offered support, will follow for VN needs closer to discharge. CM will
continue to follow for all discharge planning needs.
Plan; home, watch for VN upon discharge.
[2024-08-29 11:49] LABS: Glucose - Point of Care 254 mg/dl (70-99)
--- NOTE | 2024-08-29 12:25 | PTCARENOTE ---
PCT reported that pt was vaping in his room. Security was called. They came up and confiscated the vape pen to hold in their office until discharge. was notified and put an order in for a nicotine patch for him.
--- NOTE | 2024-08-29 13:09 | W.PN.ID1 ---
Date of Service
Date of Service: August 29, 2024
Today's Communication
- c/w doxycycline and oral metronidazole 500 mg PO BID - two weeks from revascularization
Assessment / Plan
Diabetic Foot Infection
DM2 - uncontrolled
Active tobacco use - vaping
- s/p L hallux amp, 1st met resected, sesamoids removed, excisional debridement and closure of wound
- pathology still pending
- OR cultures CONS and K oxytoca
- awaiting revascularization
- c/w doxycycline and oral metronidazole 500 mg PO BID - two weeks from revascularization
- hyperglycemia management per IM service - tight glucose control recommended
- I have counseled patient with the risks of ongoing nicotine use (including vaping) and uncontrolled DM2 including reinfection, relapse of wound, progression of PAD earlier this admission, note patient found to be vaping in his room today and we
rediscussed. He reports cutting back significantly and that he has the intent to quit
- follow clinically
Chief Complaint
-: Other (diabetic foot infection)
Subjective / Review of Systems
afebrile
pt vaping, pen removed by security and patient given nictoine patch
note recommendation for bypass
Vital Signs / Physical Exam
Vital Signs
Vital Signs
Temp Pulse Resp BP Pulse Ox
97.7 F 108 28 165/108 97
08/29/24 07:00 08/29/24 08:58 08/29/24 07:00 08/29/24 08:58 08/29/24 07:00
Physical Exam
Constitutional: No Acute Distress
Cardiovascular: Regular Rate and S1/S2; Negative Murmur or Rub
Pulmonary: Clear and Symmetric; Negative Wheezes or Rales
Gastrointestinal: Soft, Non Tender, Non Distended and Normal Bowel Sounds
Skin: Warm and Dry; Negative Rash or Jaundice
Wound: Other (left foot surgical site healing, minimal erythema,no dehiscence)
Objective Data
Lab Data
Lab Results
08/28/24 06:21
08/28/24 06:21
PT 13.7 Sec (11.4-14.6) 08/28/24 06:21
INR 1.07 08/28/24 06:21
APTT 33.9 Sec (23.4-35.0) 08/28/24 06:21
Estimated Creat Clear 61 ml/min 08/28/24 06:21
Lactic Acid 0.9 mmol/L (0.7-2.0) 08/23/24 14:18
Total Bilirubin 0.6 mg/dl (0.2-1.3) 08/27/24 08:06
AST 15 U/L (17-59) L 08/27/24 08:06
ALT 27 U/L (0-50) 08/27/24 08:06
Alkaline Phosphatase 161 U/L (38-126) H 08/27/24 08:06
Most recent labs reviewed.
Micro Results:
08/23/24 18:45 Anaerobic Culture - Preliminary
Foot - Left Culture pending. Anaerobic cultures are examined after 3
days incubation. Additional information to follow.
08/23/24 18:45 Tissue Culture - Final
Toe Klebsiella oxytoca
Staphylococcus epidermidis
Gram Stain - Final
08/23/24 14:18 Wound Culture - Final
Toe Klebsiella oxytoca
Gram Stain - Final
08/23/24 18:45 Wound Culture - Preliminary
Foot - Left Klebsiella oxytoca
Gram Stain - Preliminary
[2024-08-29] MEDS: NICODERM TRANSDERMAL 14 MG TRANSDERM (14:05)
[2024-08-29 15:33] VITALS: BP 125/92
[2024-08-29 16:57] LABS: Glucose - Point of Care 178 mg/dl (70-99)
[2024-08-29] MEDS: NOVOLOG FLEXPEN-MODERATE RESISTANCE 1 UNITS SC (17:47)
[2024-08-29] MEDS: ATIVAN 0.5 MG PO (19:31)
--- NOTE | 2024-08-29 20:00 | PTCARENOTE ---
Pt verbalizes feeling very anxious. Wanting to know why he can't just go home and come back for surgery. Process and importance of vascular surgery explained. Emotional support provided. PRN ativan administered --> will evaluate effectiveness.
Call dow within reach. Plan of care ongoing.
[2024-08-29 22:05] LABS: Glucose - Point of Care 139 mg/dl (70-99)
[2024-08-29] MEDS: LIPITOR 40 MG PO (22:09)
--- NOTE | 2024-08-29 23:03 | PTCARENOTE ---
PO ativan effective, pt verbalizes improvement in symptoms. Requests door to be closed, smoking/vaping policy reinforced. Pt verbalizes understanding.
[2024-08-29 23:25] VITALS: BP 145/75
[2024-08-30 07:30] VITALS: BP 156/89
--- NOTE | 2024-08-30 07:30 | PN.DE.MGMTRT ---
Insulin Management
- -
08/30/2024 Diabetes Management Follow up:
Patient admitted 08/23 with L foot wound pain swelling at amputation site. PMH HTN, type 2 diabetes, L great toe amputation years ago, PAD. A1C on admission 9.3% cr 1.5, eGFr 53.96. Prior to admission was taking Lantus 28 units BID with NovoLog
20 units AC, with metformin 1000 mg BID. Patient sees endocrine at [facility].
Patient is awake A/O x3, sitting up in bed, offers no complaints, able to discuss diabetes management.
Cr remains elevated 1.6, eGFR 49.94 today. Glucose has remained elevated > 200. Novolog AC dose increased to 35 units 08/29, pre dinner glucose improved to 178, HS glucose 139. FBG 196 this AM.
Will continue Lantus 36 units BID, AC NovoLog 35 units with moderate corrective and Farxiga daily. Will follow and make further insulin adjustments if needed.
Patient states he has [facility] for glucose monitoring.
Patient for OR possibly 08/31 or 09/03 for bypass for optimal healing.
Diabetes History
- -
Type of Diabetes: 2 requiring insulin
Pre-Admission Diabetes Regimen
Lab Results
Hemoglobin A1c 9.3 % (4.0-5.6) H 08/24/24 06:23
Insulin Pump Settings
IP Diabetes Regimen
08/29/24 08/29/24 08/29/24
07:27 11:48 16:53
POC Glucose 251 H 254 H 178 H
08/29/24
22:03
POC Glucose 139 H
Meal type: Breakfast
Amount consumed: 60%
Patient Education
[2024-08-30 07:57] LABS: Glucose - Point of Care 196 mg/dl (70-99)
--- NOTE | 2024-08-30 09:14 | W.PN.HOSP.TC ---
Today's Communication/Plan
-
PRN Ativan
c/w oral ABx
Adjusting insulin as appropriate
BB is added
Change Amlodipine to BID
Assessment / Plan
Assessment / Plan
Physical exam:
General: Well Developed, Well Nourished and No Apparent Distress
HEENT: Normocephalic, Moist mucous membranes and Atraumatic
Respiratory: Clear
Cardiac: S1/S2 and Regular Rhythm; No Murmur or Rub
GI: Soft, Non Tender, Non Distended and Normal Bowel Sounds
Musculoskeletal: No Edema. Dressing left foot
Skin: no bruising
Neuro: Nonfocal/grossly intact
Psych: calm
#Diabetic foot infection of left great toe partial amputation site, possible underlying osteomyelitis
# Left great toe partial amputation 3 years ago
-X-ray shows postoperative change of the great toe with prior distal phalanx removal, soft tissue swelling with subcutaneous gas
- s/p hallux amp. s/p first metatarsal resection /sesamoidectomy with closure 08/[address] Holden.
-Wound culture with klebsiella
-s/p IV Abx, now on metronidazole and doxycycline 08/27.
-ID & podiatry followed.
-Wound care ordered.
# PVD
S/p arteriogram on 08/28 that showed no endovascular option for optimal revascularization for healing of left foot wound, d/w vascular, plan for bypass. Vein Mapping was done.
# Pre-op evaluation.
No hx of angina or sob
No Acute ischemic changes on EKG
Echo good LVEF
Hx of DM & PVD& CVA& HTN, seem to be stable. C/W aspirin, Glucose control. BP control
BB was added ACS held due to Renal dysfunction.
No prohibitory factors to surgery
#Recent history of acute lacunar CVA in July 05/2024, ( he had 10 minutes left sided numbness of face and left upper extremity)
Restarted back on aspirin
Pt stopped statin due to muscle weakness and myopathy he experienced. Will leave this to PCP to consider alternative options.
#Hx of HTN emergency with missing medications.
# Hx of medical non compliance
I talked to pt's PCP Dr Evangelista with [facility] system
D/w patient at length, he verbalized understanding to importance of following instructions and compliance.
#Anxiety
Add PRN Ativan
# THOMAS on suspected CKD stage IIIB , possible diabetic nephropathy
-Get records from PCP
-Creatinine 1.6 now; on admission 1.9.
Creatinine in OP around 2.29-2.24 with microalbinuria c/w diabetic nephropathy.
-s/p IV fluids, s/p IVF pre-procedure for renal preparation.
-Held losartan, continue to hold.
# Hyperglycemia secondary to infection
# Type 2 diabetes
-Adjusting long acting insulin and pre-meal doses. cw sliding scale
-Continue dapagliflozin
- sliding scale
- Stopped metformin
BS was uncontrolled; A1c 9's. Diabetic CHAMPAGNE MAKER consulted
Essential hypertension
uncontrolled at times, change amlodipine to BID. BB is added
- Add PRN IV Hydralazine
#Vaping history
#Full code
DVT prophylaxis�SCDs; pharm ppx when ok with vascular and podiatry
Pt reported that sister and brother can be his contact if needed.
Total time spent to see the patient, examine the patient on the floor, review data and lab results, discuss treatment plan with patient, nursing staff around 55 minutes
Anticipated Discharge: > 48 hours
Subjective/Interval History
-
Date of Service: August 30, 2024
No chest pain or sob
Ativan helped him yesterday
Objective Data
-
Labs:
Laboratory Results
08/30/24
08:17
Sodium Pending
Potassium Pending
Chloride Pending
Carbon Dioxide Pending
BUN Pending
Creatinine Pending
Glucose Pending
Calcium Pending
Vital Signs:
Vital Signs
Temp Pulse Resp BP Pulse Ox
98.0 F 92 20 156/89 96
08/30/24 07:30 08/30/24 07:30 08/30/24 07:30 08/30/24 07:30 08/30/24 07:30
I&O
08/29/24 08/30/24 08/31/24
06:59 06:59 06:59
Intake Total 1740 / 1740 1440 / 1440
Output Total 1100 / 1100 1100 / 1100
Balance 640 / 640 340 / 340
[2024-08-30] MEDS: NOVOLOG FLEXPEN 35 UNITS SC ×3 (09:47→17:47)
[2024-08-30] MEDS: LANTUS 0.36 UNITS SC ×2 (09:48→20:49)
[2024-08-30] MEDS: NOVOLOG FLEXPEN-MODERATE RESISTANCE 1 UNITS SC ×2 (09:48→12:44)
[2024-08-30] MEDS: VIBRAMYCIN 100 MG PO ×2 (09:49→20:46)
[2024-08-30] MEDS: NORVASC 5 MG PO ×2 (09:49→20:46)
[2024-08-30] MEDS: FARXIGA 10 MG PO (09:49)
--- NOTE | 2024-08-30 09:49 | W.PN.UPDATE ---
Addendum entered and electronically signed by Lorenzo Holden DPM 09/11/24 09:50:
pt had amp in past for gas in soft tissue left hallux
+ gas gangrene on last admit
Original Note:
Update Note
Progress Note Update
pt seen at bedside
no pain
bypass tuesday
sutures intact, edges viable
no soi
will sign off, call if needed
foot stable and likely to heal
[2024-08-30] MEDS: TOPROL XL 25 MG PO (09:50)
[2024-08-30] MEDS: LOW STRENGTH ASPIRIN 81 MG PO (09:50)
[2024-08-30] MEDS: FLAGYL 500 MG PO ×2 (09:50→20:46)
[2024-08-30] MEDS: NICODERM TRANSDERMAL 14 MG TRANSDERM (09:50)
[2024-08-30 10:15] LABS: Blood Urea Nitrogen 31 mg/dl (9-20); Calcium 9.1 mg/dl (8.4-10.2); Carbon Dioxide 20 mmol/L (22-30); Chloride 102 mmol/L (98-107); Estimated Creatinine Clearance 61 ml/min; Glucose 216 mg/dl (70-99); HDL Cholesterol 22 mg/dl; Potassium 5.1 mmol/L (3.5-5.1); Sodium 139 mmol/L (135-145); Total Cholesterol 268 mg/dl (50-199); eGFR 49.94
[2024-08-30 10:16] LABS: Triglyceride 518 mg/dl (10-149)
[2024-08-30 10:43] LABS: LDL Cholesterol, Direct 48 mg/dl
[2024-08-30 11:09] VITALS: BP 152/97; PULSE 101; O2SAT 98
[2024-08-30 11:59] LABS: Glucose - Point of Care 183 mg/dl (70-99)
--- NOTE | 2024-08-30 14:51 | CM ---
CM reviewed chart, patient for bypass Tuesday. CM will continue to follow for all discharge planning needs.
Plan; home, watch for VN needs closer to discharge.
[2024-08-30 15:00] VITALS: BP 141/82
--- NOTE | 2024-08-30 16:22 | W.PN.CARDCBS ---
Addendum entered and electronically signed by Jag Sebastian MD 08/30/24 17:13:
I saw and examined the patient.
The Statistical Consultant's note was reviewed and I agree with the note.
Comment: Briefly, 58-year-old man past medical history of peripheral vascular disease who presents with osteomyelitis of the left great toe and is now status post amputation. He is tentatively planned for lower extremity bypass by vascular surgery
and we are asked to comment.
Patient is not at prohibitive risk to proceed with surgery
No further cardiac testing necessary at this point
We will sign off, please recall as needed
Original Note:
Today's Communication / Plan
-
Toprol XL 25 mg daily added for better BP control
Peripheral bypass recommended and from a cardiac risk stratification standpoint the patient is not a prohibitive risk and should proceed with surgery.
Impression / Plan
-
PCP: Dr. Brandi Evangelista
Cardiology: possibly seen by elevator worker at [facility], but no records in [facility]
Impression:
Admitted with foot wound 08/23/24
Left great toe partial amputation site infection with possible osteomyelitis
s/p left hallux and 1st metatarsal resection and sesamoidectomy 08/25/24
PAD with high-grade popliteal stenosis below the knee, anterior tibial artery, tibioperoneal, peroneal and posterior tibial artery occlusions by angiogram 08/28/24
DM 2
HTN emergency on admission
Medication noncompliance
h/o HTN
Essential hypertension
Hyperlipidemia
THOMAS on CKD 3b
h/o CVA 06/2024
Smoker/vaper
Echo 08/29/24: EF 55-60%, mild conc LVH, no , no MR, no pericardial effusion
Plan:
-Patient with foot wound on admission at the site of previous partial left great toe amputation. Patient had left hallux and 1st metatarsal resection and sesamoidectomy 08/25/24 with podiatry. Vascular surgery also seeing patient and he was found to
have high-grade PAD of the LLE without percutaneous options and so peripheral bypass has been recommended. Cardiology consulted for preoperative risk stratification.
-No symptoms of angina or CHF at fair exercise capacity estimated 5-7 METS.
-Echo with preserved EF and no significant valve disease.
-Patient is not a prohibitive risk for surgery.
-Outpatient dose of amlodipine 5 mg BID continued.
-Outpatient dose of losartan 100 mg daily on hold due to THOMAS on CKD 3b.
-BP only marginally controlled and so Toprol XL 25 mg daily added 08/30/24.
-Recent history of acute lacunar CVA in July 05/2024, cont aspirin 81 mg daily.
-He reports myalgias on statins and we discussed potential use of PCSK9 inh as outp
-Direct LDL 48. Statin therapy still recommended given CVA and PAD. Patient reports myalgias with statin, but would be willing to consider PCSK9 inhibitors as an outpatient. Patient with commercial insurance.
-Patient caught vaping in his room. Cessation strongly advised.
HPI: I had the pleasure to meet Seb Walker for preoperative cardiac risk assessment. Konrad is a 58-year-old male with PMH of hypertension, PAD, uncontrolled type diabetes with neuropathy, CRI ?HTN/DM, HLD, lacunar infarct, tobacco abuse/ current
vaping and noncompliance with prior partial left hallux amputation 3 years ago. He presented to ED on 08/23/2024 with failed outpatient treatment of diabetic foot infection of left great toe partial amputation site, possible underlying
osteomyelitis. He was seen by Podiatry and underwent I&D 08/23 and than 1st metatarsal head resection left foot and closure of wound left foot 08/25/24. He was also seen by Vascular surgery s/p Diagnostic left lower extremity arteriogram 08/28/[address] Tom. Patient does not have endovascular option for optimal revascularization and he was recommended for surgical bypass recommendation is for bypass during this admission [either Friday 08/31 or Monday 09/03]. He reports seeing cardiology at [facility]
> 10 years ago with a stress test. No recent cardiology care. He denies known CAD or prior VA. He denies CHF/CM. He states he is active with regular walking; A few months prior he reports he walked miles around [place] with his girlfriend
without cardiac limiting symptoms. Patient denies chest pain, shortness of breath, palpitations, fever, chills. He quit cigarette use but is actively vaping and found to be vaping in his room.
Progress Note - Respiratory Practitioner
Subjective
Date of Service: August 30, 2024
Wants to go home
Objective
Labs:
08/28/24 06:21
08/30/24 08:17
Labs
Hgb 11.5 g/dL (13.0-18.0) L 08/28/24 06:21
Hct 33.7 % (39.0-52.0) L 08/28/24 06:21
Plt Count 364 10^3/uL (130-400) 08/28/24 06:21
PT 13.7 Sec (11.4-14.6) 08/28/24 06:21
INR 1.07 08/28/24 06:21
APTT 33.9 Sec (23.4-35.0) 08/28/24 06:21
Sodium 139 mmol/L (135-145) 08/30/24 08:17
Potassium 5.1 mmol/L (3.5-5.1) 08/30/24 08:17
BUN 31 mg/dl (9-20) H 08/30/24 08:17
Creatinine 1.6 mg/dL (0.7-1.3) H 08/30/24 08:17
Glucose 216 mg/dl (70-99) H 08/30/24 08:17
Vital Signs and I&O:
Vital Signs
Temp Pulse Resp BP Pulse Ox
98.0 F 92 20 156/89 96
08/30/24 07:30 08/30/24 09:49 08/30/24 07:30 08/30/24 09:49 08/30/24 08:46
Vital Signs
Temp Pulse Resp BP Pulse Ox
98.0 F 92 20 156/89 96
08/30/24 07:30 08/30/24 09:49 08/30/24 07:30 08/30/24 09:49 08/30/24 08:46
Intake & Output
08/28/24 08/29/24 08/30/24 08/31/24
06:59 06:59 06:59 06:59
Intake Total 2009 1740 / 1740 1440 / 1440
Output Total 2800 / 2800 1100 / 1100 1100 / 1100
Balance -790 / -790 640 / 640 340 / 340
Physical Exam
Physical Exam
General: AAOX3
HEENT: EOMI
Heart: SR on tele
Lungs: No audible wheeze
Abd: ND
Ext: Left foot dressing intact.
--- NOTE | 2024-08-30 16:33 | W.PN.ID1 ---
Date of Service
Date of Service: August 30, 2024
Today's Communication
- c/w doxycycline and oral metronidazole 500 mg PO BID - two weeks from revascularization
- hyperglycemia management per IM service - tight glucose control recommended
- patient understands need to quit nicotine use
ID service will no longer actively follow this patient please recall for further questions
Assessment / Plan
Diabetic Foot Infection
DM2 - uncontrolled
Active tobacco use - vaping
- s/p L hallux amp, 1st met resected, sesamoids removed, excisional debridement and closure of wound
- pathology still pending
- OR cultures CONS and K oxytoca
- awaiting revascularization
- c/w doxycycline and oral metronidazole 500 mg PO BID - two weeks from revascularization
- hyperglycemia management per IM service - tight glucose control recommended
- patient understands need to quit nicotine use
ID service will no longer actively follow this patient please recall for further questions
Chief Complaint
-: Other (diabetic foot infection)
Subjective / Review of Systems
afebrile
bp stable
no complaints
Vital Signs / Physical Exam
Vital Signs
Vital Signs
Temp Pulse Resp BP Pulse Ox
98.0 F 92 20 156/89 96
08/30/24 07:30 08/30/24 09:49 08/30/24 07:30 08/30/24 09:49 08/30/24 08:46
Physical Exam
Constitutional: No Acute Distress
Cardiovascular: Regular Rate and S1/S2; Negative Murmur or Rub
Pulmonary: Clear and Symmetric; Negative Wheezes or Rales
Gastrointestinal: Soft, Non Tender, Non Distended and Normal Bowel Sounds
Skin: Warm and Dry; Negative Rash or Jaundice
Wound: Other (dressing clean, dry, intact)
Objective Data
Lab Data
Lab Results
08/28/24 06:21
08/30/24 08:17
PT 13.7 Sec (11.4-14.6) 08/28/24 06:21
INR 1.07 08/28/24 06:21
APTT 33.9 Sec (23.4-35.0) 08/28/24 06:21
Estimated Creat Clear 61 ml/min 08/30/24 08:17
Lactic Acid 0.9 mmol/L (0.7-2.0) 08/23/24 14:18
Total Bilirubin 0.6 mg/dl (0.2-1.3) 08/27/24 08:06
AST 15 U/L (17-59) L 08/27/24 08:06
ALT 27 U/L (0-50) 08/27/24 08:06
Alkaline Phosphatase 161 U/L (38-126) H 08/27/24 08:06
Most recent labs reviewed.
Micro Results:
08/23/24 18:45 Wound Culture - Final
Foot - Left Klebsiella oxytoca
Gram Stain - Final
08/23/24 18:45 Anaerobic Culture - Final
Foot - Left Anaerobic gram positive cocci
08/23/24 18:45 Tissue Culture - Final
Toe Klebsiella oxytoca
Staphylococcus epidermidis
Gram Stain - Final
08/23/24 14:18 Wound Culture - Final
Toe Klebsiella oxytoca
Gram Stain - Final
Care Review
Plan reviewed with: Physician (Dr Kimball - asking for dc)
[2024-08-30 17:14] LABS: Glucose - Point of Care 86 mg/dl (70-99)
[2024-08-30] MEDS: LIPITOR 40 MG PO (17:48)
[2024-08-30] MEDS: NOVOLOG FLEXPEN-MODERATE RESISTANCE SC (17:48)
[2024-08-30] MEDS: ATIVAN 0.5 MG PO (17:53)
[2024-08-30 20:49] LABS: Glucose - Point of Care 223 mg/dl (70-99)
[2024-08-30 23:41] VITALS: BP 134/80
--- NOTE | 2024-08-31 07:33 | PN.DE.MGMTRT ---
Insulin Management
- -
08/31/2024 Diabetes Management F/U:
Patient admitted 08/23 with L foot wound pain swelling at amputation site. PMH HTN, type 2 diabetes, L great toe amputation years ago, PAD. A1C on admission 9.3% cr 1.5, eGFr 53.96. Prior to admission was taking Lantus 28 units BID with NovoLog
20 units AC, with metformin 1000 mg BID. Patient sees endocrine at . Patient states he has [employer] 3 for glucose monitoring at home.
Patient is awake A/O x3, sitting up in bed, offers no complaints, able to discuss diabetes management. at bedside.
Cr remains elevated 1.6, eGFR 49.94 today. NovoLog AC dose was increased to 35 units 08/29.
Glucose continues to improve with some elevations, premeal range 86 to 196, HS 223, FBG 215 this AM.
Will make no changes to current regimen. Cont Lantus 36 units BID, AC NovoLog 35 units with moderate corrective and Farxiga daily.
Change from 2199 to 1999 ADA bart diet
Will follow and make further insulin adjustments if needed.
Patient for OR possibly 08/31 or 09/03 for bypass for optimal healing.
Diabetes History
- -
Type of Diabetes: 2 requiring insulin
Pre-Admission Diabetes Regimen
08/30/24
08:17
Creatinine 1.6 H
Lab Results
Hemoglobin A1c 9.3 % (4.0-5.6) H 08/24/24 06:23
Insulin Pump Settings
IP Diabetes Regimen
08/30/24 08/30/24 08/30/24
07:55 08:17 11:58
Glucose 216 H
POC Glucose 196 H 183 H
08/30/24 08/30/24
17:12 20:48
Glucose
POC Glucose 86 223 H
Patient Education
[2024-08-31 07:38] LABS: Glucose - Point of Care 215 mg/dl (70-99)
--- NOTE | 2024-08-31 07:40 | W.PN.UPDATE ---
Update Note
Progress Note Update
Left lower extremity arteriogram demonstrates extensive tibial artery occlusive disease which is not amenable to endovascular intervention. He does have reconstitution of a robust posterior tibial artery which is a good distal target for bypass. I
am recommending open revascularization with left lower extremity bypass. Vein mapping shows suitable left great saphenous vein conduit.
The technical aspects of this procedure were discussed with him in detail. The benefits and rationale for this approach were discussed with him in detail. Operative risks were discussed with him in detail including but not limited to heart attack,
bleeding, infection, wound healing complications, chronic leg swelling, need for additional procedures, failure of the bypass and limb loss. We also discussed the anticipated postoperative course, both inpatient and outpatient. He expressed a
clear understanding of our conversation and agrees to proceed with surgery as detailed above.
OR 09/03/2024
Kar Tom III, MD
[facility]
[phone] ([phone])
[2024-08-31 07:52] VITALS: BP 165/94
[2024-08-31] MEDS: NOVOLOG FLEXPEN-MODERATE RESISTANCE 3 UNITS SC (08:17)
[2024-08-31] MEDS: NOVOLOG FLEXPEN 35 UNITS SC (08:17)
[2024-08-31] MEDS: VIBRAMYCIN 100 MG PO (08:18)
[2024-08-31] MEDS: FARXIGA 10 MG PO (08:18)
[2024-08-31] MEDS: LOW STRENGTH ASPIRIN 81 MG PO (08:18)
[2024-08-31] MEDS: NORVASC 5 MG PO (08:18)
[2024-08-31] MEDS: TOPROL XL 25 MG PO (08:18)
[2024-08-31] MEDS: FLAGYL 500 MG PO (08:18)
[2024-08-31] MEDS: NICODERM TRANSDERMAL 14 MG TRANSDERM (08:18)
[2024-08-31] MEDS: LANTUS 0.36 UNITS SC (08:22)
--- NOTE | 2024-08-31 08:51 | W.PN.HOSP.TC ---
Today's Communication/Plan
-
DC was discussed with vascular doctor
Updated Pt's PCP and podiatry
Assessment / Plan
Assessment / Plan
Physical exam:
General: Well Developed, Well Nourished and No Apparent Distress
HEENT: Normocephalic, Moist mucous membranes and Atraumatic
Respiratory: Clear
Cardiac: S1/S2 and Regular Rhythm; No Murmur or Rub
GI: Soft, Non Tender, Non Distended and Normal Bowel Sounds
Musculoskeletal: No Edema. Dressing left foot
Skin: no bruising
Neuro: Nonfocal/grossly intact
Psych: calm , not agitated, intact insight and judgment.
# Patient wants to go home
Patient is alert, oriented X3, lucid and coherent. He makes his own decisions.
Patient wants to go home. He expressed his wishes to go home and seek a second opinion. He initially said that staying in hospital was impacting negatively his mental health and waiting for surgery until Tuesday would be too much, he felt that he did
not need inpatient care until surgery. Upon asking if there was something we could do to help or bothering him while in hospital, he said he felt his wound was healing and he would like more time to seek another opinion about need for bypass
surgery. Patient was made aware that he has the right to seek a second opinion and will be given contact informations for our vascular doctor office in case he wants to see them again.
Patient was made aware of our assessment that he had significant PAD and need for an intervention to give him best chance of healing the foot wound and avoid amputation/ sepsis/ worsening infection.
Dr Tom also was informed and he saw patient again this morning, gave patient follow up instructions. Podiatry Dr Holden was also updated.
He as advised to follow with Vascular, cardiology, diabetes doctor. Dr. Evangelista his primary care doctor, was also informed about pt's decision to go home and seek a second opinion and about his medical condition/ medications given.
I gave the patient a one month supply of antibiotics because He wad not sure when he would do his surgery.
#Diabetic foot infection of left great toe partial amputation site, possible underlying osteomyelitis
# Left great toe partial amputation 3 years ago
-X-ray shows postoperative change of the great toe with prior distal phalanx removal, soft tissue swelling with subcutaneous gas
- s/p hallux amp. s/p first metatarsal resection /sesamoidectomy with closure 08/[address] Holden.
-Wound culture with klebsiella
-s/p IV Abx, now on metronidazole and doxycycline 08/27.
-ID & podiatry followed.
-Wound care ordered.
# PVD
S/p arteriogram on 08/28 that showed no endovascular option for optimal revascularization for healing of left foot wound, d/w vascular, plan for bypass. Vein Mapping was done. Plan to proceed with Bypass surgery on Monday 09/03
# Pre-op evaluation.
No hx of angina or sob
No Acute ischemic changes on EKG
Echo good LVEF
Hx of DM & PVD& CVA& HTN, seem to be stable. C/W aspirin, Glucose control. BP control
BB was added ACS held due to Renal dysfunction.
No prohibitory factors to surgery
#Recent history of acute lacunar CVA in July 05/2024, ( he had 10 minutes left sided numbness of face and left upper extremity)
Restarted back on aspirin
Pt stopped statin due to muscle weakness and myopathy he experienced. Will leave this to PCP to consider alternative options.
#Hx of HTN emergency with missing medications.
# Hx of medical non compliance
I talked to pt's PCP Dr Evangelista with [facility] system
D/w patient at length, he verbalized understanding to importance of following instructions and compliance.
#Anxiety
His mood is cooperative and stable this morning.
was given PRN Ativan
# THOMAS on suspected CKD stage IIIB , possible diabetic nephropathy
-Get records from PCP
-Creatinine 1.6 now; on admission 1.9.
Creatinine in OP around 2.29-2.24 with microalbinuria c/w diabetic nephropathy.
-s/p IV fluids, s/p IVF pre-procedure for renal preparation.
-Held losartan, continue to hold.
# Hyperglycemia secondary to infection
# Type 2 diabetes
-Adjusting long acting insulin and pre-meal doses. cw sliding scale
-Continue dapagliflozin
- sliding scale was given, he was followed by DM educator.
- Stopped metformin
BS was uncontrolled; A1c 9's. Diabetic [employer]ER consulted
Essential hypertension
Better controlled. BB is added ( PCP was informed).
- Added PRN IV Hydralazine
#Vaping history
#Full code
DVT prophylaxis�SCDs;
Pt reported that sister and brother can be his contact if needed.
Total discharge time spent to see the patient, examine the patient on the floor, review data and lab results, discuss discharge plan with patient, nursing staff around 75 minutes
Anticipated Discharge: Today
Subjective/Interval History
-
Date of Service: August 31, 2024
No pain or discomfort
He wants to go home
Objective Data
-
Vital Signs:
Vital Signs
Temp Pulse Resp BP Pulse Ox
97.8 F 99 18 165/94 97
08/31/24 07:52 08/31/24 07:52 08/31/24 07:52 08/31/24 07:52 08/31/24 07:52
I&O
08/30/24 08/31/24 09/01/24
06:59 06:59 06:59
Intake Total 1440 / 1440 480 / 480
Output Total 1100 / 1100
Balance 340 / 340 480 / 480
--- NOTE | 2024-08-31 10:50 | PN.CDI ---
Addendum entered and electronically signed by Neetu Kimball MD 08/31/24 14:39:
CKD stage IIIA
Original Note:
CDI
- -
CDI:
Physician Documentation Request
Admit Date: 08/23/24 15:33
Dear Doctor Jigar,
08/30 Hospitalist PN: 'THOMAS on suspected CKD stage IIIB , possible diabetic nephropathy
-Get records from PCP
-Creatinine 1.6 now; on admission 1.9.
Creatinine in OP around 2.29-2.24 with microalbinuria c/w diabetic nephropathy.'
Laboratory Tests
08/23/24 08/24/24 08/27/24
14:18 06:23 08:06
Creatinine 1.9 H 1.5 H 1.7 H
The purpose of this query is not to question medical judgement, but to ensure the accuracy of the conditions reported for your patient.
There is either a lack of clinical support for this condition in the current medical record, or there is a lack of recognized standard criteria to support the condition.
Criteria for THOMAS*
1 Increase in serum creatinine by > or = to 0.3 mg/dL (> or = to 26.5 micromol/L) within 48 hours, OR
2 Increase in serum creatinine to > or = to 1.5 times baseline, which is known or presumed to have occurred within 7 days, OR
3 Urine volume < 0.5 nL/kg/hour for six hours
The request is for one of the following:
- Additional documentation to support the condition. Indicate if this is in lieu of what may be considered standard criteria, and/or support why the standard criteria may not be present for this patient.
- A more appropriate diagnosis, reflecting the patient's condition
- THOMAS remains a known or suspected condition for this patient and is further supported by (include additional documentation in the medical record)
- THOMAS has been ruled out and a more appropriate diagnosis for this patient's condition is .
- Other (please specify)
Use of terms such as suspected, likely, concern for, or probable (associated with a specific diagnosis that is being evaluated, monitored, or treated as if it exists) are acceptable and can be coded in the inpatient setting, when documented at the
time of discharge.
Thank you,
Mary Roldan RN, BSN
CDI Specialist
Available via [place] text
Please use your independent medical judgment in providing your response.
[2024-08-31 11:22] LABS: Glucose - Point of Care 153 mg/dl (70-99)
[2024-08-31 12:04] VITALS: BP 133/87
--- NOTE | 2024-08-31 12:58 | CM ---
CM reviewed chart, discussed with nurse, patient discharged and will return for scheduled procedure.
Plan; discharge home with family, no needs, will return for procedure next week.
--- NOTE | 2024-08-31 14:58 | W.DCSUMMARY ---
Discharge Summary
Discharge Data
Date of Admission: 08/23/24
Date of Discharge: 08/31/24
-
Pending Results: No
Hospital Course
58 years old male presented with left foot nonhealing wound. Patient had history of peripheral arterial disease and he reported an intervention 3 years ago that did not work. Patient saw his inspector and tester who performed debridement and started
antibiotic but without improvement. Patient was started on intravenous antibiotic. Podiatry was consulted. Patient was taken to the OR. He was found to have abscess of the left foot with soft tissue gas, osteomyelitis of the left great toe.
Patient underwent incision and drainage with excisional debridement of all infected soft tissue and bone with amputation of the left great toe by Dr. Lorenzo Holden. No complications reported. Patient was seen by infectious diseases doctor. He
received intravenous antibiotic. Podiatry recommended vascular consultation. Vascular surgery evaluated the patient. He had imaging studies including Doppler and arteriogram. Patient was found to have significant peripheral arterial disease. No
endovascular intervention was done and recommended preop evaluation by cardiology with subsequent bypass surgery. Patient was noticed to have uncontrolled diabetes and hypertension. Hemoglobin A1c was 9.3. His blood pressure medications were
adjusted. He was seen by cuprous chloride helper for preoperative evaluation and management. Echocardiogram showed left ventricular ejection fraction of 55 to 60%, no significant mitral or tricuspid disease, aortic valve sclerosis without stenosis or
regurgitation. Cage/Vault Supervisor recommended low-dose metoprolol to better control heart rate. Patient had history of recent CVA. Cage/Vault Supervisor recommended cholesterol treatment that patient was not on due to history of muscle pains. After discussing
with cuprous chloride helper, patient agreed to start Lipitor. Operative wound cultures came positive for Klebsiella oxytoca and Staphylococcus epidermidis. He was maintained on combination of doxycycline and metronidazole after finishing course of
intravenous antibiotic. Patient did not have leukocytosis or fever. Patient was noticed to have renal insufficiency and was diagnosed with chronic kidney disease stage IIIa based on his outpatient creatinine. He had creatinine in July around
2.29-2.24.
Vascular surgery schedule surgery on Tuesday, September 03 and the plan was to continue blood pressure and glucose control to optimize his risk factors. Patient reported that he needed more time before considering bypass surgery of the left lower
extremity and he might also seek a second opinion. Discharge plan was discussed with vascular surgery and patient was given follow-up instruction if he will be willing to do so. Patient verbalized understanding to potential risks of worsening
infection, sepsis, amputation of the extremity. He also verbalized understanding to the importance of compliance with instruction on taking his medications, blood pressure and glucose control at that might result in further medical complications
including . Patient remained hemodynamic stable. Patient was lucid and fully oriented. Patient was evaluated by renal case manager and discharged in a stable condition.
Discharge Plan
-
Patient Disposition: Home (Routine Discharge)
Discharge Diagnosis/Procedures: Left foot wound
Peripheral arterial disease , recommended open revascularization with left lower extremity bypass.
Chronic kidney disease
Diabetes, hemoglobin A1c 9.3
Hypertension
Hyperlipidemia
History of vaping
History of stroke
You were seen by podiatry, you had amputation of the great toe left foot with wound left foot By Dr. Holden.
You were found to have significant PVD in left lower extremity, you had arteriogram by Dr. Tom, diagnosis was chronic limb threatening ischemia, left lower extremity manifested by toe wound and associated infection. Not amenable to endovascular
intervention, recommended open revascularization with left lower extremity bypass.
You were seen by cuprous chloride helper to optimize your condition, you were started on new medicine called Metoprolol ( D-Cniyurq-twdsjgglm side effects include bradycardia, hypotension, fatigue), Lipitor ( statin for cholesterol management-potential side
effects include myalgia/myositis, elevated liver enzymes)
. You had echocardiogram.
You were followed by infectious disease internal control consultant. You were discharged on doxycycline(potential side effects include photosensitivity, joint pain, gastrointestinal problems) and metronidazole(potential side effects include nausea, gastrointestinal
upset)
You were seen by tobacco prevention health educator for diabetes management. Your insulin doses were adjusted.
You are scheduled to have bypass surgery on Tuesday, September 06, you wanted more time to consider and second opinion. This was discussed with vascular surgeon Dr. Tom. Please follow instructions given by DR. Tom.
Please follow with your primary care doctor Dr. Evangelista
Diet: Low Fat and Diabetic, Carb Controlled
Referrals:
Lorenzo Holden DPM [Specified Professional Personl] - in one week
Kar Tom III, MD [Active] - (Vascular surgery office- Please call for appointment when ready)
Russell Bryson DO [Active] - in one month
Brandi Evangelista DO [Family Provider] - in one to two weeks
Nhung Alberts MD [Active] - in two to three days (As needed)
Prescriptions:
New
dapagliflozin propanediol 10 mg Tablet
10 mg PO DAILY Qty: 30 0RF
atorvastatin 40 mg Tablet
40 mg PO QPM Qty: 30 0RF
metronidazole 500 mg Tablet
500 mg PO BID Qty: 60 0RF
aspirin 81 mg Tablet,Chewable
81 mg PO DAILY Qty: 30 0RF
doxycycline hyclate 100 mg Capsule
100 mg PO Q12 Qty: 60 0RF
nicotine 14 mg/24 hr Patch 24 Hour
14 mg transdermal DAILY Qty: 30 0RF
metoprolol succinate 25 mg Tablet Extended Release 24 Hr
25 mg PO DAILY Qty: 30 0RF
Continued
amlodipine 10 mg tablet
10 mg PO DAILY
tadalafil 20 mg tablet
20 mg PO DAILYPRN PRN (Reason: ed)
Changed
insulin aspart U-100 [Novolog FlexPen U-100 Insulin] 100 unit/mL (3 mL) insulin pen
30 unit SC MEALS Qty: 0 0RF
insulin glargine [Lantus Solostar U-100 Insulin] 100 unit/mL (3 mL) insulin pen
36 unit SC BID Qty: 0 0RF
Discontinued
losartan 100 mg tablet
100 mg PO DAILY
Nuzyra 150 mg tablet
150 mg PO BID
Discharge Orders:
Discharge Patient (As Directed); Ordered 08/31/24
Ordered By: Neetu Kimball
Discharge Date and Time
Discharge Date/Time: 08/31/24 12:41
Print Language: ANGOLAN
--- NOTE | 2024-08-31 19:19 | PN.CDI ---
CDI
- -
CDI:
Physician Documentation Request
Admit Date: 08/23/24 15:33
Dear Doctor Navin,
Patient admitted for wound infection.
H&P: 'X-ray shows postoperative change of the great toe with prior distal phalanx removal, soft tissue swelling with subcutaneous gas'
08/23 Operative Report: 'Abscess left foot with soft tissue gas...An incision was made over the great toe and significant amount of purulent discharge and liquified necrotic tissue was identified...There was soft tissue necrosis noted on the dorsal
aspect of the first metatarsal head...All the necrotic infected soft tissue was debrided.'
Based on the above, could you clarify in the progress notes, the appropriate diagnosis, if significant, that supports the above abnormalities and additional evaluation, monitoring and/or treatment rendered:
Gas gangrene
Gangrene
Other
Unable to determine
Use of terms such as suspected, likely, concern for, or probable (associated with a specific diagnosis that is being evaluated, monitored, or treated as if it exists) are acceptable and can be coded in the inpatient setting, when documented at the
time of discharge.
Thank you,
Mary Roldan RN, BSN
CDI Specialist
Available via [facility] text
Please use your independent medical judgment in providing your response.
== END 2024-08-31 12:41 | disposition home or self-care (01) | DRG 628 ==
LOC: 4 WEST ACU 15:33
PROVIDERS: Internal Medicine; Nurse Practitioner; Physician Assistant; ADMITTING PHYSICIAN Hospitalist; ATTENDING PHYSICIAN Internal Medicine; CONSULT PHYSICIAN Student in an Organized Health Care Education/Training Program; EMERGENCY PHYSICIAN Student in an Organized Health Care Education/Training Program; FAMILY PHYSICIAN Family Medicine; OTHER PHYSICIAN Internal Medicine Cardiovascular Disease; OTHER PHYSICIAN Podiatrist Foot Surgery; OTHER PHYSICIAN Surgery Vascular Surgery
PROC: 0STN0ZZ Resection of Left Metatarsal-Phalangeal Joint, Open Approach (ICD-10-PCS; 2024-08-23)
PROC: 0QBP0Z2 Excision of Left Metatarsal, Sesamoid Bone(s) 1st Toe, Open Approach (ICD-10-PCS; 2024-08-25)
PROC: 0QTP0ZZ Resection of Left Metatarsal, Open Approach (ICD-10-PCS; 2024-08-25)
PROC: B41G1ZZ Fluoroscopy of Left Lower Extremity Arteries using Low Osmolar Contrast (ICD-10-PCS; 2024-08-28)
DX: E11.69 Type 2 diabetes mellitus with other specified complication (principal); A48.0 Gas gangrene; L02.612 Cutaneous abscess of left foot; M86.9 Osteomyelitis, unspecified; L03.116 Cellulitis of left lower limb; E11.52 Type 2 diabetes mellitus with diabetic peripheral angiopathy with gangrene; I70.245 Atherosclerosis of native arteries of left leg with ulceration of other part of foot; E11.621 Type 2 diabetes mellitus with foot ulcer; E11.65 Type 2 diabetes mellitus with hyperglycemia; E11.22 Type 2 diabetes mellitus with diabetic chronic kidney disease; I12.9 Hypertensive chronic kidney disease with stage 1 through stage 4 chronic kidney disease, or unspecified chronic kidney disease; N18.31 Chronic kidney disease, stage 3a; I35.8 Other nonrheumatic aortic valve disorders; N17.9 Acute kidney failure, unspecified; L97.524 Non-pressure chronic ulcer of other part of left foot with necrosis of bone; B96.89 Other specified bacterial agents as the cause of diseases classified elsewhere; B95.7 Other staphylococcus as the cause of diseases classified elsewhere; L03.032 Cellulitis of left toe; E78.00 Pure hypercholesterolemia, unspecified; F17.290 Nicotine dependence, other tobacco product, uncomplicated; Z91.199 Patient's noncompliance with other medical treatment and regimen due to unspecified reason; Z79.4 Long term (current) use of insulin; Z79.82 Long term (current) use of aspirin; Z79.899 Other long term (current) drug therapy; Z86.73 Personal history of transient ischemic attack (TIA), and cerebral infarction without residual deficits; Z88.8 Allergy status to other drugs, medicaments and biological substances
CPT/HCPCS: 88304; 88305; 88311; 36247; 73630; 75716; 80048; 80053; 80061; 80202; 82947; 82962; 83036; 83605; 83721; 85025; 85027; 85610; 85730; 86850; 86900; 86901; 87070; 87075; 87076; 87077; 87147; 87176; 87186; 87205; 93005; 93306; 93922; 93925; 93970; 96365; 96366; 97110; 97116; 97161; 97530; 99285; C1769; C1894; Q9967

== ENCOUNTER 2024-09-03 10:14 | Inpatient (IN) | payer OTHER, SELFPAY ==
[2024-09-03] VITALS (12 sets, daily range): BP systolic 0–161; BP diastolic 64–91; BMI 26.9; BMI 27.8
[2024-09-03 10:56] LABS: Glucose - Point of Care 233 mg/dl (70-99)
[2024-09-03 10:57] LABS: Hematocrit 36.6 % (39.0-52.0); Hemoglobin 12.6 g/dL (13.0-18.0); Mean Corp Hgb Conc. 34.4 g/dL (33.0-37.0); Mean Corpuscular Hgb 27.4 pg (27.0-31.0); Mean Corpuscular Volume 79.6 fL (80.0-94.0); Mean Platelet Volume 11.4 fL (7.4-10.4); Platelet Count 394 10^3/uL (130-400); Red Cell Dist. Width 15.9 % (11.5-14.5); White Blood Cell Count 8.4 10^3/uL (4.8-10.8)
[2024-09-03] MEDS: BACTROBAN NASAL 1 GRAM NASAL (11:00)
[2024-09-03] MEDS: PERIDEX 0.12% ORAL RINSE 15 ML PO (11:00)
[2024-09-03] MEDS: NSS 500 IV (11:01)
[2024-09-03 11:11] LABS: INR 1.04; PT 13.4 Sec (11.4-14.6)
[2024-09-03 11:12] LABS: APTT 32.7 Sec (23.4-35.0)
[2024-09-03] MEDS: NOVOLOG vial 100 UNITS SC (11:14)
[2024-09-03 11:50] LABS: Blood Urea Nitrogen 30 mg/dl (9-20); Calcium 7.9 mg/dl (8.4-10.2); Carbon Dioxide 19 mmol/L (22-30); Chloride 112 mmol/L (98-107); Estimated Creatinine Clearance 75 ml/min; Glucose 207 mg/dl (70-99); Potassium 4.6 mmol/L (3.5-5.1); Sodium 141 mmol/L (135-145); eGFR > 60.00
[2024-09-03 14:00] LABS: ACT-LR - POC 250 Seconds (116-155)
[2024-09-03 14:22] LABS: Glucose - Point of Care 171 mg/dl (70-99)
[2024-09-03 15:03] LABS: ACT-LR - POC 213 Seconds (116-155)
[2024-09-03 15:17] LABS: B.E. - POC -7.1 mmol/L; Glucose - POC 215 mg/dl (70-99); HCO3 - POC 19 mmol/L (21-29); Hematocrit - POC 38 % PCV (42-52); Hemodilution- POC Yes; Hemoglobin Calculated - POC 12.9; Ionized Calcium - POC 1.05 mmol/L (1.12-1.27); Lactate - POC 1.08 mmol/L (0.36-0.75); O2 Saturation %Calculated-POC 97.6 % (92-96); PCO2 - POC 41 mmHg (35-45); PO2 - POC 110 mmHg (80-100); Potassium - POC 5.5 mmol/L (3.6-5.0); Sodium - POC 140 mmol/L (135-145); pH - POC 7.28 (7.35-7.45)
[2024-09-03 16:06] LABS: ACT-LR - POC 197 Seconds (116-155)
[2024-09-03 16:16] LABS: B.E. - POC -8.2 mmol/L; Glucose - POC 210 mg/dl (70-99); HCO3 - POC 18 mmol/L (21-29); Hematocrit - POC 31 % PCV (42-52); Hemodilution- POC Yes; Hemoglobin Calculated - POC 10.7; Ionized Calcium - POC 1.26 mmol/L (1.12-1.27); Lactate - POC 1.15 mmol/L (0.36-0.75); O2 Saturation %Calculated-POC 98.6 % (92-96); PCO2 - POC 37 mmHg (35-45); PO2 - POC 132 mmHg (80-100); Potassium - POC 5.4 mmol/L (3.6-5.0); Sodium - POC 141 mmol/L (135-145); pH - POC 7.29 (7.35-7.45)
--- NOTE | 2024-09-03 17:23 | W.IMMPOSTOP ---
Surgical Immed Post Op Note
-
Primary Surgeon: Vaishali
Assisting Surgeon: Koko
Pre-op Diagnosis: CLTI, left
Post-op Diagnosis: CLTI, left
Procedure Performed: In-situ LLE bypass; SFA to PT
Anesthesia Type: General
Specimen / Cultures: None
Estimated Blood Loss: 50 cc
Complications: None
Operative Findings: Patent bypass on completion imaging. Excellent flow to the foot via PT/plantar branches
[2024-09-03] MEDS: DILAUDID 0.25 MG IV (17:37)
[2024-09-03 17:42] LABS: Glucose - Point of Care 198 mg/dl (70-99)
[2024-09-03] MEDS: NSS 1000 IV (17:56)
[2024-09-03 18:28] LABS: Hemoglobin 9.6 g/dL (13.0-18.0); Mean Corp Hgb Conc. 34.3 g/dL (33.0-37.0); Mean Corpuscular Hgb 27.4 pg (27.0-31.0); Platelet Count 236 10^3/uL (130-400); Red Cell Dist. Width 16.1 % (11.5-14.5); White Blood Cell Count 6.9 10^3/uL (4.8-10.8)
--- NOTE | 2024-09-03 18:43 | SUR.PHASEI ---
Report to Sisi, Vascular checks and dressing checks at bedside on arrival to ICU. Patient awake and stable. A-line site benign. Traci stanton RN BSN.
[2024-09-03 19:06] LABS: Blood Urea Nitrogen 31 mg/dl (9-20); Calcium 8.4 mg/dl (8.4-10.2); Carbon Dioxide 16 mmol/L (22-30); Chloride 110 mmol/L (98-107); Estimated Creatinine Clearance 70 ml/min; Glucose 193 mg/dl (70-99); Potassium 5.6 mmol/L (3.5-5.1); Sodium 141 mmol/L (135-145); eGFR 58.62
--- NOTE | 2024-09-03 20:00 | PTCARENOTE ---
received report from RN, pt drowsy easily arousable to voice, Ox3, weakness to LE's, NSR on the monitor, R radial A-line zeroed with cuff correlation, +radials, post tibialis + doppler Lungs diminished throughout, simple mask 10L SAT's 99%, BSx4
round soft non-tender, 16F bradley draining clear yellow urine, 18 RFA, 20 LAC, NS 80ml, L great toe wrapped from post amputation 2 weeks ago, x2 lino drains on LL with post op dressings, upper dry and intact, lower dressing scant serosanguineous
drainage, 2 incisional sights approximated with surgical adhesive and open to air, pt can make needs known, call dow within reach, otherwise refer to documentation.
[2024-09-03] MEDS: DILAUDID 0.5 MG IV ×2 (20:23→22:42)
[2024-09-03] MEDS: VIBRAMYCIN 100 MG PO (20:24)
[2024-09-03] MEDS: LIPITOR 40 MG PO (20:24)
[2024-09-03] MEDS: HEPARIN 5000 UNITS SC (20:24)
[2024-09-03] MEDS: FLAGYL 500 MG PO (20:24)
[2024-09-03] MEDS: TOPROL XL 25 MG PO (20:42)
[2024-09-03] MEDS: NORVASC 10 MG PO (20:43)
[2024-09-03] MEDS: APRESOLINE 10 MG IV (21:33)
[2024-09-03] MEDS: NOVOLOG FLEXPEN-HIGH RESISTANCE 4 UNITS SC (21:42)
[2024-09-03] MEDS: LANTUS 0.36 UNITS SC (21:42)
[2024-09-03 21:52] LABS: Glucose - Point of Care 219 mg/dl (70-99)
[2024-09-03] MEDS: CARDENE 200 IV (21:58)
--- NOTE | 2024-09-03 22:00 | PTCARENOTE ---
1999 pt SBP >170, ELECTRONICS COMPUTER MECHANIC notified metoprolol, Norvasc, hydralazine ordered an given per JAN, BP did not improve, Dr. Tom notified per order notes, wants Cardene MAP goal 70-90, ELECTRONICS COMPUTER MECHANIC notified ordered placed, Cardene started @ 2200 @ 5mg and titrated per
worklist to keep pt @ goal
[2024-09-04] VITALS (15 sets, daily range): BP systolic 85–156; BP diastolic 68–88; PULSE 88–93; O2SAT 95–96; BMI 28.2
--- NOTE | 2024-09-04 00:36 | PTCARENOTE ---
systems reviewed, blood sugar rechecked 317 MVA OPERATOR notified, drip titrated per worklist, Q1 neurovascular checks per worklist,, otherwise refer to documentation
[2024-09-04 00:37] LABS: Glucose - Point of Care 317 mg/dl (70-99)
[2024-09-04] MEDS: NOVOLOG FLEXPEN 8 UNITS SC (00:50)
[2024-09-04] MEDS: CARDENE 200 IV (03:50)
[2024-09-04] MEDS: DILAUDID 0.5 MG IV ×3 (03:50→18:11)
[2024-09-04] MEDS: NSS 1000 IV (03:50)
[2024-09-04 04:35] LABS: Blood Urea Nitrogen 35 mg/dl (9-20); Calcium 8.5 mg/dl (8.4-10.2); Carbon Dioxide 17 mmol/L (22-30); Chloride 110 mmol/L (98-107); Estimated Creatinine Clearance 65 ml/min; Glucose 279 mg/dl (70-99); Hematocrit 29.9 % (39.0-52.0); Hemoglobin 10.3 g/dL (13.0-18.0); Mean Corp Hgb Conc. 34.4 g/dL (33.0-37.0); Mean Corpuscular Hgb 27.3 pg (27.0-31.0); Mean Corpuscular Volume 79.3 fL (80.0-94.0); Mean Platelet Volume 10.9 fL (7.4-10.4); Platelet Count 301 10^3/uL (130-400); Potassium 4.9 mmol/L (3.5-5.1); Red Blood Cell Count 3.77 10^6/uL (4.70-6.10); Red Cell Dist. Width 15.9 % (11.5-14.5); Sodium 140 mmol/L (135-145); White Blood Cell Count 10.4 10^3/uL (4.8-10.8); eGFR 53.96
[2024-09-04 04:49] LABS: INR 1.09; PT 13.9 Sec (11.4-14.6)
[2024-09-04 04:50] LABS: APTT 25.3 Sec (23.4-35.0)
--- NOTE | 2024-09-04 04:55 | PTCARENOTE ---
systems reviewed, Cardene titrated per worklist, pain managed per MAR, pt encouraged to use IS, neurovascular checks per worklist, no change to prior assessment, refer to documentation.
[2024-09-04] MEDS: ROXICODONE 5 MG PO ×2 (06:01→22:03)
[2024-09-04] MEDS: NOVOLOG FLEXPEN-HIGH RESISTANCE 7 UNITS SC ×2 (07:06→11:57)
[2024-09-04 07:18] LABS: Glucose - Point of Care 265 mg/dl (70-99)
[2024-09-04] MEDS: FARXIGA 10 MG PO (07:23)
[2024-09-04] MEDS: FLAGYL 500 MG PO ×2 (07:23→21:55)
[2024-09-04] MEDS: LOW STRENGTH ASPIRIN 81 MG PO (07:23)
[2024-09-04] MEDS: VIBRAMYCIN 100 MG PO ×2 (07:23→21:54)
[2024-09-04] MEDS: NORVASC 10 MG PO (07:23)
[2024-09-04] MEDS: LANTUS 0.36 UNITS SC ×2 (07:23→21:55)
[2024-09-04] MEDS: TOPROL XL 25 MG PO ×2 (07:24→12:08)
[2024-09-04] MEDS: HEPARIN 5000 UNITS SC ×2 (07:24→21:55)
--- NOTE | 2024-09-04 07:36 | PN.DE.MGMTRT ---
Insulin Management
- -
09/04/2024 Diabetes Management Follow up:
Patient admitted 08/23 discharged 08/31 with L foot wound pain swelling at amputation site. Planned readmission 09/03 for LLE bypass. PMH HTN, type 2 diabetes, L great toe amputation years ago, PAD. A1C on admission 9.3% cr 1.5, eGFr 53.96. Prior
to admission was taking Lantus 28 units BID with NovoLog 20 units AC, with metformin 1000 mg BID. Patient sees endocrine at .
Patient is awake A/O x3, sitting up in bed, offers no complaints, able to discuss diabetes management. 09/03 Received 36 units lantus @ hs. with high resistance corrective insulin. Glucose range 171 to 279.
Cr 1.5, eGFR 53.96 today. Fasting glucose 09/04 279.
Will continue Lantus 36 units BID, resume AC NovoLog 30 units with moderate corrective and Farxiga daily. Will follow and make further insulin adjustments if needed.
Patient states he has Kasandra 3 for glucose monitoring.
Diabetes History
- -
Type of Diabetes: 2 requiring insulin
Pre-Admission Diabetes Regimen
09/03/24 09/03/24 09/03/24
10:40 11:27 18:14
Creatinine Cancelled 1.3 1.4 H
09/04/24
04:01
Creatinine 1.5 H
Insulin Pump Settings
IP Diabetes Regimen
09/03/24 09/03/24 09/03/24
10:40 10:45 11:27
Glucose Cancelled 207 H
POC Glucose 233 H
09/03/24 09/03/24 09/03/24
14:10 17:40 18:14
Glucose 193 H
POC Glucose 171 H 198 H
09/03/24 09/04/24 09/04/24
21:41 00:25 04:01
Glucose 279 H
POC Glucose 219 H 317 H
09/04/24
07:04
Glucose
POC Glucose 265 H
Meal type: Dinner
Patient Education
--- NOTE | 2024-09-04 08:14 | W.PN.VS ---
Addendum entered and electronically signed by Kar Tom III, MD 09/04/24 12:32:
This patient was seen and examined with CHADD Rivas. I agree with the history and physical exam as well as the assessment and plan.
Palpable graft pulse left calf
Robust Doppler signal over the posterior tibial artery at the ankle
Doing well overall
Signed:
Kar Tom III, MD
[facility] Vascular Surgery
[phone] (cell)
Original Note:
Today's Communication / Plan
-
Patient seen and examined at bedside with Dr. Kar Tom III, below plan reviewed with attending
Assessment/Plan
-
Assessment: 58-year-old male POD #1 left lower extremity arterial bypass SFA to PT with in situ vein graft
Plan:
Discontinue IV fluid
Cardiology consulted to aid in hypertensive management, patient requiring Cardene overnight for increased blood pressure despite administration of p.o. home antihypertensive medications, appreciate recommendations with goal to wean off Cardene and
discontinue arterial line
OOB to chair with progression ambulation as tolerated
PT eval and treat
Discontinue Tom catheter
Consult to diabetes nurse practitioner for continued management of hyperglycemia
Continue to encourage incentive spirometry
Continue ICU level care today
Consult podiatry for continued surveillance of postoperative left foot hallux amputation site
Subjective Data
-
Date of Service: September 04, 2024
Patient seen and examined at bedside offers no complaints, reports adequate postoperative pain management. Denies nausea, vomiting, fever, and chills. Tolerating p.o. intake
Objective Data
-
Vital Signs
Temp Pulse Resp BP Pulse Ox
98.4 F 93 16 159/63 93
09/04/24 08:06 09/04/24 08:00 09/04/24 08:00 09/04/24 07:24 09/04/24 08:03
Intake and Output
09/03/24 09/04/24 09/05/24
06:59 06:59 06:59
Intake Total 2278 / 2395.5 715.0 / 715.0
Output Total 1994 450 / 450
Balance 283 / 175.5 265.0 / 265.0
Intake:
Oral fluids 1208 / 1208 480 / 480
IV fluids (Total) 1070 / 1187.5 235.0 / 235.0
Cardene 75.0 / 75.0
Norm 50 / 50
Nss 1,000 ml @ 80 mls/hr IV . 1020 / 1100 160 / 160
[id number] CAITLYN Rx#:[id number]
Output:
Drain Output (Total) 0 / 0
Left Leg 0 / 0
Urine, Tom 1994 450 / 450
Lab Results
09/04/24 04:01
09/04/24 04:01
Calcium 8.5 mg/dl (8.4-10.2) 09/04/24 04:01
Physical Exam
-
AAOx3, no apparent distress
No tachycardia
No dyspnea
ABD flat, nontender, nondistended
Left lower extremity surgical incision CDI, lino x 2 CDI, palpable graft pulse at left calf, Doppler signal PT, trace edema, bilateral feet warm
Tom catheter draining clear yellow urine
--- NOTE | 2024-09-04 08:30 | PTCARENOTE ---
Rec'd care of patient at 0700. Patient alert and oriented. NSR on tele monitor. Lung sounds cta. Tom in place. Urine output 225 cc/hr. Neurovascular check verified with previous RN. Trace edema in LLE. +Doppler popliteal and pt pulse. PICCO x2 and
left foot dressings intact. Vascular surgery DIAMOND SETTER at bedside. Plan discussed. Tom out. IVFs off. Wean Cardene as tolerated. Remove joaquina once Cardene off.
[2024-09-04] MEDS: XARELTO 2.5 MG PO ×2 (08:39→21:54)
[2024-09-04] MEDS: NOVOLOG FLEXPEN 30 UNITS SC ×3 (08:39→16:50)
[2024-09-04 08:50] LABS: Glucose - Point of Care 251 mg/dl (70-99)
--- NOTE | 2024-09-04 10:40 | CON.CAR ---
Addendum entered and electronically signed by Seb Miranda MD 09/04/24 16:42:
Update: Will hold on diuretic as blood pressures seem reasonably well controlled at the current time. I suspect he maybe missed doses and / or pain drive elevation in BP.
-No chlorthalidone
Addendum entered and electronically signed by Seb Miranda MD 09/04/24 16:40:
Attending addendum: Patient seen and examined. PA note reviewed and findings independently confirmed by me. Briefly, Mr. Walker is a 58-year-old gentleman with a past medical history notable for peripheral vascular disease with recent admission for
left foot wound and subsequent peripheral bypass surgery. Prior left great toe amputation. His compliance with home medications is marginal and he is unable to tell what medications he is taking and what medications he is not taking. He feels
well and denies any chest discomfort. A cardiology consult is requested for evaluation and management of his severe hypertension.
IMPRESSION:
-Peripheral vascular disease with left lower extremity bypass SFA-PT
-Poorly controlled hypertension
-Medical compliance issues
-CKDIII
-Diabetes Mellitus
-Ongoing tobacco use
RECOMMENDATIONS:
-Hypertension:
amlodipine 10mg daily, losartan, and metoprolol succinate 50mg daily
Will add chlorthalidone and follow renal function
If blood pressures remain difficult to manage, we can consider changing beta daina to Coreg or labetalol but worry about compliance
-PVDz
On COMPASS trial regimen including aspirin and rivaroxaban 2.5 mg bid
Lipids are well controlled
-Diabetes:
On Farxiga and insulin
Original Note:
Consultation
Consultation Request
Date/Time Consultation Requested: 09/04/24
Date/Time Consultation Performed: 09/04/24
Requesting Provider: Dr. Tom
Performing Provider: Dr. Miranda
Reason for Consultation: HTN management
Medical History
-
History of Present Illness:
Patient was admitted to for elective LLE peripheral bypass yesterday and cardiology has been consulted to see patient HTN urgency overnight. Patient was just admitted to 08/23/24 until 08/31/24 with LLE wound that required additional left great
toe amputation and peripheral angiogram found PAD without percutaneous options. Patient was seen by cardiology last admission for preoperative risk stratification, he says he saw a field research associate at [facility] 10+ years ago, but does not have regular
cardiology care as an outpatient. Patient had an echo last admission with EF 55% and patient was felt to not be of prohibitive risk for surgery. Cardiology adjusted BP meds and stopped his losartan due to THOMAS after peripheral angiogram and then
added Toprol XL 25 mg daily. Pharmacy team able to determine that patient picked up his Rx for Toprol XL, but patient has no idea what he is taking at home or when. Patient went home for the weekend and then returned for surgery yesterday. BP was
140/74 pre-op and then overnight increased to 161/91 and then 176/78 so NOW doses of amlodipine, Toprol XL and hydralazine were given without improvement. Cardene gtt started for goal MAP of 70-90. Cardene gtt weaned this AM. Usual doses of
amlodipine 10 mg daily and Toprol XL 25 mg daily. Patient denies GRAHAM, chest pain or SOB.
PMH:
Recent admission for left foot wound 08/23/24 until 08/31/24
h/o left great toe partial amputation 2020 then wound requiring left hallux and 1st metatarsal resection and sesamoidectomy 08/25/24
DM 2
Medication noncompliance
h/o HTN
Essential hypertension
Hyperlipidemia
THOMAS on CKD 3b
h/o CVA 06/2024
Smoker/vaper
Past Medical History
Past Medical History: Other
Past Surgical History: Orthopedic (Left great toe partial amputation) and Other (s/p LLE peripheral bypass 09/03/24)
Social History
Tobacco: Vaping
Alcohol: Occasional (2-4 times a month)
Drug: None
Personal:
Living: Alone
Employment: Employed
Family History
Family History: Reviewed & Not Pertinent
Allergies / Home Medications
Allergy/AdvReac Type Severity Reaction Status Date / Time
No Known Allergies Allergy Verified 08/23/24 13:13
�Medication �Instructions �Recorded �Confirmed �Type
amlodipine 10 mg tablet 10 mg PO DAILY Blood Pressure 08/23/24 09/03/24 History
tadalafil 20 mg tablet 20 mg PO DAILYPRN PRN ed 08/23/24 09/03/24 History
aspirin 81 mg chewable tablet 81 mg PO DAILY #30 tabs 08/31/24 09/03/24 Rx
atorvastatin 40 mg tablet 40 mg PO QPM #30 tabs 08/31/24 09/03/24 Rx
dapagliflozin propanediol 10 mg 10 mg PO DAILY #30 tabs 08/31/24 09/03/24 Rx
tablet
doxycycline hyclate 100 mg capsule 100 mg PO Q12 #60 caps 08/31/24 09/03/24 Rx
insulin aspart U-100 100 unit/mL 30 unit (0.3 mL) SC MEALS Diabetes 08/31/24 09/03/24 Rx
(3 mL) subcutaneous pen (Novolog #0 mL
FlexPen U-100 Insulin aspart)
insulin glargine 100 unit/mL (3 36 unit (0.36 mL) SC BID Diabetes 08/31/24 09/03/24 Rx
mL) subcutaneous pen (Lantus #0 mL
Solostar U-100 Insulin)
metoprolol succinate 25 mg 25 mg PO DAILY #30 tabs 08/31/24 09/03/24 Rx
tablet,extended release 24 hr
metronidazole 500 mg tablet 500 mg PO BID #60 tabs 08/31/24 09/03/24 Rx
nicotine 14 mg/24 hr daily 14 mg transdermal DAILY #30 ea 08/31/24 09/03/24 Rx
transdermal patch
losartan 100 mg tablet 100 mg PO DAILY Blood Pressure 09/03/24 09/03/24 History
omadacycline 150 mg tablet 150 mg PO BID Infection 09/03/24 09/03/24 History
Review of Systems
-
History Source: Patient
All other systems: Negative unless noted
Physical Exam
Vital Signs
Temp Pulse Resp BP Pulse Ox
98.4 F 85 23 126/70 96
09/04/24 08:06 09/04/24 10:30 09/04/24 10:30 09/04/24 08:50 09/04/24 10:30
General: AAOX3
HEENT: EOMI
Heart: SR on tele
Lungs: No audible wheeze
Abd: ND
Ext: Left foot dressing intact.
Lab Results
09/04/24 04:01
09/04/24 04:01
Impression / Plan
-
PCP: Dr. Brandi Evangelista
Cardiology: possibly seen by field research associate at [facility], but no records in [facility]
Impression:
s/p LLE arterial bypass SFA to PT with in situ vein graft 09/03/24
HTN urgency
HTN emergency last admission 08/23/24
Recent admission for left foot wound 08/23/24 until 08/31/24
h/o left great toe partial amputation 2020 then wound requiring left hallux and 1st metatarsal resection and sesamoidectomy 08/25/24
DM 2
Medication noncompliance
h/o HTN
Essential hypertension
Hyperlipidemia
THOMAS on CKD 3b
h/o CVA 06/2024
Smoker/vaper
Echo 08/29/24: EF 55-60%, mild conc LVH, no , no MR, no pericardial effusion
Plan:
-Patient was admitted to for elective LLE peripheral bypass yesterday and cardiology has been consulted to see patient HTN urgency overnight. Patient was just admitted to 08/23/24 until 08/31/24 with LLE wound that required additional left great
toe amputation and peripheral angiogram found PAD without percutaneous options. Patient was seen by cardiology last admission for preoperative risk stratification, he says he saw a field research associate at [facility] 10+ years ago, but does not have regular
cardiology care as an outpatient. Patient had an echo last admission with EF 55% and patient was felt to not be of prohibitive risk for surgery. Cardiology adjusted BP meds and stopped his losartan due to THOMAS after peripheral angiogram and then
added Toprol XL 25 mg daily. Pharmacy team able to determine that patient picked up his Rx for Toprol XL, but patient has no idea what he is taking at home or when. Patient went home for the weekend and then returned for surgery yesterday. BP was
140/74 pre-op and then overnight increased to 161/91 and then 176/78 so NOW doses of amlodipine, Toprol XL and hydralazine were given without improvement. Cardene gtt started for goal MAP of 70-90. Cardene gtt weaned this AM. Usual doses of
amlodipine 10 mg daily and Toprol XL 25 mg daily. Patient denies GRAHAM, chest pain or SOB.
-Patient with h/o HTN. Meds prior to last admission included amlodipine 5 mg BID and losartan 100 mg daily. Last admission losartan was stopped due to THOMAS. Unclear if patient was taking losartan at home still, he has no idea what meds he takes at
home.
-Toprol XL 25 mg daily added last admission, 08/30/24, for BP control and pharmacy was able to check the system and see that patient filled that Rx, but unknown if he was actually taking it at home.
-Recommend amlodipine 10 mg daily be continued
-Recommend Toprol XL dose be increased to 50 mg daily
-Losartan 100 mg daily is on hold and patient had been instructed to stop losartan at last d/c on 08/31/24. Due to THOMAS recommend holding losartan. If Cre improves could consider restarting given h/o DM 2 as well
-Recent history of acute lacunar CVA in July 05/2024, cont aspirin 81 mg daily.
-Patient also newly started on Xarelto 2.5 mg BID following peripheral intervention yesterday
-Cont atorvastatin 40 mg daily. LDL was 48 last admission
-Post-op ECG reviewed by me showed SR without ischemic changes.
--- NOTE | 2024-09-04 11:01 | CM ---
Addendum entered by Paige Jacobs RN 09/04/24 11:52:
Met with patient. Xarelto $10/month copay card provided.
Original Note:
Patient with recent left foot hallux amputation who is s/p LLE arterial bypass. PT & OT Evals pending.
Spoke with patient who resides alone in a 2 story house with 2 KAYLEIGH.
His 13 yr old daughter stays with him physical education department chair.
The patient has been independent in ADLs and ambulation.
The patient has no DME - he says he was told by MD he would be given an offloading shoe for recent foot surgery
VN - [facility], can't remember agency, he agrees to a referral to [facility]
PCP - Brandi Evangelista
Pharmacy - [facility] [place]
Discussed d/c needs; patient has a girlfriend who can assist him as needed
CM Consult: Escoto check Xarelto 2.5mg BID: Cost is $35/month
Patient ok with cost
Informed Gege Tapia of escoto check and that patient's pharmacy doesn't have the med in stock- it would have to be ordered 1 day in advance so that the pharmacy could get it.
Request to Gege Tapia; patient might benefit from OT as well. He was told by someone that his insurance might cover a caregiver at home however explained to him that no insurance covers that.
Referral to [facility].
Plan home with [facility].
--- NOTE | 2024-09-04 11:14 | CON.INTV ---
Consultation
Consultation Request
Date/Time Consultation Requested: 09/04/2024
Date/Time Consultation Performed: 09/04/2024
Requesting Provider: Dr. Tom
Performing Provider: Dr. Jose Meyer
Reason for Consultation: Postoperative care, status post lower extremity bypass
Medical History
-
History of Present Illness:
58-year-old man smoker, with history of type 2 diabetes poorly controlled, peripheral arterial disease, hypertension, hyperlipidemia, history of stroke, history of vaping, recently discharged from the hospital for nonhealing ulcer of the left foot.
He had an intervention 3 years ago from the vascular perspective. Found to have osteomyelitis of the left great toe. Status post amputation. He was evaluated by vascular surgery and he was recommended for outpatient preparatory evaluation for
bypass.
Surgery underwent on 09/04/2024 without immediate complications.
Past Medical History
Past Medical History: Other (See assessment and plan findings)
Social History
Tobacco: Vaping (Former smoker)
Alcohol: None
Drug: None
Family History
Family History: Reviewed & Not Pertinent
Allergies / Home Medications
Allergies
Allergy/AdvReac Type Severity Reaction Status Date / Time
No Known Allergies Allergy Verified 08/23/24 13:13
Home Medications
�Medication �Instructions �Recorded �Confirmed �Last Taken �Type
amlodipine 10 mg tablet 10 mg PO DAILY Blood Pressure 08/23/24 09/03/24 09/02/24 10:00 History
tadalafil 20 mg tablet 20 mg PO DAILYPRN PRN ed 08/23/24 09/03/24 Unknown History
aspirin 81 mg chewable tablet 81 mg PO DAILY #30 tabs 08/31/24 09/03/24 08/31/24 10:00 Rx
atorvastatin 40 mg tablet 40 mg PO QPM #30 tabs 08/31/24 09/03/24 09/02/24 10:00 Rx
dapagliflozin propanediol 10 mg 10 mg PO DAILY #30 tabs 08/31/24 09/03/24 09/02/24 10:00 Rx
tablet
doxycycline hyclate 100 mg capsule 100 mg PO Q12 #60 caps 08/31/24 09/03/24 09/02/24 10:00 Rx
insulin aspart U-100 100 unit/mL 30 unit (0.3 mL) SC MEALS Diabetes 08/31/24 09/03/24 09/02/24 08:30 Rx
(3 mL) subcutaneous pen (Novolog #0 mL 14 units
FlexPen U-100 Insulin aspart)
insulin glargine 100 unit/mL (3 36 unit (0.36 mL) SC BID Diabetes 08/31/24 09/03/24 09/02/24 08:30 Rx
mL) subcutaneous pen (Lantus #0 mL 36 unit
Solostar U-100 Insulin)
metoprolol succinate 25 mg 25 mg PO DAILY #30 tabs 08/31/24 09/03/24 09/02/24 10:00 Rx
tablet,extended release 24 hr
metronidazole 500 mg tablet 500 mg PO BID #60 tabs 08/31/24 09/03/24 09/02/24 10:00 Rx
nicotine 14 mg/24 hr daily 14 mg transdermal DAILY #30 ea 08/31/24 09/03/24 Unknown Rx
transdermal patch
losartan 100 mg tablet 100 mg PO DAILY Blood Pressure 09/03/24 09/03/24 09/02/24 10:00 History
omadacycline 150 mg tablet 150 mg PO BID Infection 09/03/24 09/03/24 09/02/24 10:30 History
Review of Systems
-
History Source: Patient
All other systems: Negative unless noted
Vitals / Labs / Diagnostic Testing
Vital Signs
Temp Pulse Resp BP Pulse Ox
98.4 F 85 23 126/70 96
09/04/24 08:06 09/04/24 10:30 09/04/24 10:30 09/04/24 08:50 09/04/24 10:30
Lab Data
09/04/24 04:01
09/04/24 04:01
Laboratory Results
09/03/24 09/04/24
10:40 04:01
PT 13.4 13.9
INR 1.04 1.09
APTT 32.7 25.3
Diagnostic Testing:
Physical Exam
-
HEENT: Normocephalic
Cardiovascular: S1/S2
Respiratory: Clear and Non-Labored Respirations
GI: Soft and Non Distended
Neurology: Awake, Alert, Oriented, AO x 3 and No Motor Deficits
Skin: Other (Left lower extremity incision is dressed. Peripheral pulses present. Extremities warm)
General: Comfortable
Assessment
-
Status post left lower extremity bypass, SFA to popliteal with in situ vein graft.
Postoperative acute kidney injury-
Conditions present prior admission:
Status post left great toe amputation by Dr. Holden August 2024.-Discharged on 08/31/2024
Klebsiella oxytoca and Staphylococcus epidermidis-status post antibiotics
Peripheral vascular disease-chronic limb ischemia with a nonhealing ulcer.
Hyperlipidemia
Poorly controlled type 2 diabetes
Hypertension
History of tobacco abuse and also more recently Vaping
History of a stroke
Echocardiogram 08/29/2024: Normal LVEF. Normal diastolic function. No significant valvular abnormalities
Assessment plan:
Postoperative surgical intensive care unit monitoring
Supplemental oxygen as needed
Incentive spirometry
Aspiration precautions
Nebulizers if needed-currently not bronchospastic
Chest x-ray 09/04/2024: Findings suggestive of mild pulmonary edema. Mild cardiomegaly. Possible left linear left lower lobe atelectasis
Neuro and vascular checks per protocol
Analgesia with narcotics-follow respiratory status closely
Vascular surgery following-correspondence and operative notes reviewed
History of osteomyelitis status post toe amputation 08/2024.
Continue antibiotic therapy
Hypertensive
Monitor blood pressure-arterial line
Allow for mild permissive hypertension
Cardene drip hopefully to be weaned off.
Restart outpatient antihypertensive
Cardiology has been consulted
Acute kidney injury:
Losartan on hold
Hydration encouraged
Follow hemoglobin-no evidence for bleeding
Incision is intact without hematoma
Poorly controlled diabetes.
Follow blood sugars
Insulin supplementation as needed
Restart subcu insulin.
Smoking cessation-refused nicotine patch.
Not bronchospastic on exam
Patient vapes.
DVT prophylaxis-subcu Lovenox/Xarelto
Early nutrition
Early mobilization
Maintain ICU hemodynamic monitoring for the next 24 hours.
--- NOTE | 2024-09-04 11:35 | PTCARENOTE ---
Cardene gtt turned off at 0937. Right radial joaquina removed. VSS. Additional dose of PO Metoprolol ordered.
[2024-09-04 12:08] LABS: Glucose - Point of Care 264 mg/dl (70-99)
--- NOTE | 2024-09-04 12:27 | OR.RPT ---
Operative Report
Operative Report
Date of Operation: 09/03/2024
Pre Op Diagnosis:
1.) Chronic limb threatening ischemia, left lower extremity, manifested by foot wound and osteomyelitis
2.) Recent left 1st toe amputation
3.) Poorly controlled diabetes
4.) Chronic kidney disease
Post Op Diagnosis:
1.) Chronic limb threatening ischemia, left lower extremity, manifested by foot wound and osteomyelitis
2.) Recent left 1st toe amputation
3.) Poorly controlled diabetes
4.) Chronic kidney disease
Procedure: In-situ left superficial femoral artery to posterior tibial artery bypass
Surgeon: Kar Tom III, MD
Industrial Economist: Haily Sutherland MD PGY-8
Anesthesia: General
Complications: None
Estimated Blood Loss: 50 cc
History and Indications for Procedure: 58-year-old male with chronic limb threatening ischemia of his left lower extremity manifested by a foot wound and associated infection. He had recently undergone toe amputation and I recommended open
revascularization given the extensive underlying tibial artery occlusive disease.
Procedure in Detail: Seb Walker was correctly identified and placed supine on the operating table. After adequate induction of anesthesia the left greater saphenous vein was imaged with ultrasound and marked from the ankle to the proximal thigh. The
left lower extremity was then positioned, prepped and draped in the usual sterile fashion. Preoperative antibiotics were administered. A timeout procedure was performed with the nursing and anesthesia staff confirming the patient�s identity as well
as the nature and laterality of the procedure.
An incision was made in the mid thigh over the greater saphenous vein radha. The vein was sharply dissected and exposed. All branches were ligated and divided between silk ties and clips. The vein appeared to be of adequate caliber and quality to be
used as a bypass conduit. We circumferentially dissected the vein to allow for enough mobility to create the proximal anastomosis. Through the same incision the superficial femoral artery was carefully exposed using electrocautery and sharp
dissection. Proximal and distal control was obtained with vessel loops
The posterior tibial artery was chosen as the distal target and was sharply exposed through a medial distal calf incision. Proximal and distal control was obtained with vessel loops. Through this same incision the greater saphenous vein was also
sharply exposed. All branches were ligated and divided between silk ties and clips. A silk tie and was placed on the distal end of the GSV and the vein was transected. The vein was flushed proximally with heparinized saline. A venogram was then
performed through the GSV. The vein flushed easily and was of good quality throughout. The vein was patent and no clear areas of stenosis were identified. Large vein branches were marked externally on the skin using marking tape for later exposure
and ligation.
The patient was systemically heparinized.
A silk tie was placed on the proximal great saphenous vein and the vein was transected. The proximal and distal vessel loops on the superficial femoral artery were secured. A Derra clamp was then placed on the proximal superficial femoral artery
and the vessel loop released. An arteriotomy was made in the superficial femoral artery and extended proximally and distally with Barry scissors. The proximal end of the vein was everted and inspected closely. There was no valve present within the
first few centimeters of the vein. The end of the vein was then spatulated and an end-to-side anastomosis was created with a running 6-0 Prolene suture. The anastomosis was completed and the proximal clamp and vessel loops were released. The
proximal suture line was inspected for hemostasis and was achieved. We then passed the LeMaitre self expanding valvulotome from the distal end of the vein. This was passed proximally towards the proximal anastomosis. The vein was gently occluded
between fingers to prevent the valvulotome from crossing the proximal anastomosis. The valvulotome was deployed and pulled back steadily towards the distal end of the vein. We passed the valvulotome four separate times and after the last pass we
achieved pulsatile bleeding from the end of the vein. A soft bulldog clamp was placed on the proximal end of the vein just off of the anastomosis.
The posterior tibial artery proximal and distal vessel loops were secured. The vein was temporarily pressurized and shortened appropriately. An arteriotomy was made in the posterior tibial artery with an ophthalmic blade and extended proximally and
distally with Barry scissors. The proximal and distal artery was flushed with heparinized saline. The end of the vein conduit was spatulated and an end-to-side anastomosis created with a running 7-0 Prolene. Prior to the completion of the
anastomosis the proximal bulldog clamp was temporarily released and the vein flushed. The area under the anastomosis was irrigated with heparinized saline and the anastomosis completed. The proximal bulldog and then the vessel loops on the posterior
tibial artery were released. Immediately there was a pulse in the vein conduit and the distal artery beyond the distal anastomsis. The suture lines were both inspected and hemostasis achieved.
A completion arteriogram was performed. The proximal and distal anastomoses were widely patent. The bypass was patent although there was impaired flow distally due to stealing venous branches communicating with the deep system. The outflow through
the posterior tibial artery was patent. 3 large vein branches were identified on completion and marked at the skin level. Small incisions were made over these GSV branches and these were individually ligated and divided between silk ties. A final
completion arteriogram demonstrated an excellent technical result with brisk flow through the bypass and into the foot via the posterior tibial artery and plantar branches.
Satisfied with this result we then concluded the procedure. Protamine was administered. Hemostasis was achieved in the wound beds. The wounds were irrigated with warm saline solution. All wounds were closed in layers. Sterile dressings were applied.
The patient tolerated the procedure well and was taken to the PACU in stable condition.
Attestation: I was present and responsible for all documented portions of the above procedure.
Signed:
Kar Tom III, MD
[facility] Vascular Surgery
[phone] (cell)
--- NOTE | 2024-09-04 12:39 | PTCARENOTE ---
Patient resting comfortably. PRN Dilaudid for pain management. NSR on tele monitor. Vitals stable. Neurovascular checks unchanged. Voiding in urinal without difficulty. No other changes in assessment. Awaiting PT/OT to get oob. Off loading boot
obtained from [place].
--- NOTE | 2024-09-04 15:28 | PTCARENOTE ---
PT/OT at bedside. Patient oob in chair. Vitals stable.
--- NOTE | 2024-09-04 16:31 | W.PN.UPDATE ---
Update Note
Progress Note Update
pt seen at bedside s/p bypass and 1st ray reection leftfoot
pt did wb at home, popped 2-3 sutures
foot is warm
tissue healthy and edges viable
a/ps/p 1st ray resection---consult dictated. steri applid
pt to be NWB on left foot for now so sutures dont cont to pop
dry bandages daily
fu in office 1-2 days after dc
will sign off
[2024-09-04] MEDS: NOVOLOG FLEXPEN-HIGH RESISTANCE 4 UNITS SC (16:50)
--- NOTE | 2024-09-04 17:00 | PTCARENOTE ---
Envelope Maker at bedside to assess surgical site. Weightbearing status changed to non-weightbearing to LLE. Vascular surgery COILER and PT notified of changes. No other changes.
[2024-09-04 17:02] LABS: Glucose - Point of Care 227 mg/dl (70-99)
[2024-09-04] MEDS: LIPITOR 40 MG PO (17:22)
--- NOTE | 2024-09-04 20:30 | PTCARENOTE ---
pt rec'd. assessment as documented. pt denies pain at this time. neurovascular checks ongoing. + LLE PT pulse w/ Doppler. dressing to L foot dry/intact. KRYSTYNA x2 on L thigh and L lower leg. LLE non weight bearing at this time. SR on monitor. on RA,
denies SOB. urinal at bedside. call dow within reach, care ongoing.
[2024-09-04 21:46] LABS: Glucose - Point of Care 152 mg/dl (70-99)
[2024-09-05] VITALS (17 sets, daily range): BP systolic 113–158; BP diastolic 64–93; BMI 28.4
[2024-09-05] MEDS: DILAUDID 0.5 MG IV ×2 (03:22→20:35)
--- NOTE | 2024-09-05 03:41 | PTCARENOTE ---
AM labs sent. q4h neurovascular checks ongoing, no changes. PRN pain meds given for LLE pain, see JAN. pt with BM overnight. call dow within reach.
[2024-09-05 03:54] LABS: Platelet Count 231 10^3/uL (130-400)
[2024-09-05 04:13] LABS: Hematocrit 30.3 % (39.0-52.0); Hemoglobin 10.4 g/dL (13.0-18.0); Mean Corp Hgb Conc. 34.3 g/dL (33.0-37.0); Mean Corpuscular Hgb 28.3 pg (27.0-31.0); Mean Corpuscular Volume 82.3 fL (80.0-94.0); Mean Platelet Volume 11.1 fL (7.4-10.4); Red Blood Cell Count 3.68 10^6/uL (4.70-6.10); Red Cell Dist. Width 16.2 % (11.5-14.5); White Blood Cell Count 7.3 10^3/uL (4.8-10.8)
[2024-09-05 04:17] LABS: Carbon Dioxide 19 mmol/L (22-30); Chloride 107 mmol/L (98-107); Estimated Creatinine Clearance 75 ml/min; Glucose 160 mg/dl (70-99); Potassium 4.8 mmol/L (3.5-5.1); Sodium 141 mmol/L (135-145); eGFR > 60.00
[2024-09-05 04:27] LABS: Blood Urea Nitrogen 33 mg/dl (9-20)
[2024-09-05] MEDS: NOVOLOG FLEXPEN-HIGH RESISTANCE 1 UNITS SC (07:19)
[2024-09-05] MEDS: NOVOLOG FLEXPEN 30 UNITS SC (07:20)
[2024-09-05] MEDS: LANTUS 0.36 UNITS SC ×2 (07:20→21:34)
[2024-09-05] MEDS: VIBRAMYCIN 100 MG PO ×2 (07:21→20:31)
[2024-09-05] MEDS: XARELTO 2.5 MG PO ×2 (07:21→20:32)
[2024-09-05] MEDS: FLAGYL 500 MG PO ×2 (07:21→20:32)
[2024-09-05] MEDS: NORVASC 10 MG PO (07:21)
[2024-09-05] MEDS: FARXIGA 10 MG PO (07:21)
[2024-09-05] MEDS: TOPROL XL 50 MG PO ×2 (07:21→20:33)
[2024-09-05] MEDS: LOW STRENGTH ASPIRIN 81 MG PO (07:21)
[2024-09-05] MEDS: HEPARIN 5000 UNITS SC ×2 (07:22→20:31)
[2024-09-05 07:24] LABS: Glucose - Point of Care 150 mg/dl (70-99)
--- NOTE | 2024-09-05 08:03 | W.PN.CARDCBS ---
Today's Communication / Plan
-
Blood pressure trend overall improving. Continue pain control.
Continue amlodipine and losartan.
Increase Toprol to 50 mg p.o. twice daily.
Creatinine stable at 1.3 with normal potassium back on losartan.
Continue postop care
Continue aspirin, Xarelto, and Farxiga, atorvastatin
Impression / Plan
-
PCP: Dr. Brandi Evangelista
Cardiology: possibly seen by sales support representative at [facility], but no records in [facility]
Impression:
s/p LLE arterial bypass SFA to PT with in situ vein graft 09/03/24
HTN urgency
HTN emergency last admission 08/23/24
Recent admission for left foot wound 08/23/24 until 08/31/24
h/o left great toe partial amputation 2020 then wound requiring left hallux and 1st metatarsal resection and sesamoidectomy 08/25/24
DM 2
Medication noncompliance
h/o HTN
Essential hypertension
Hyperlipidemia
THOMAS on CKD 3b
h/o CVA 06/2024
Smoker/vaper
Echo 08/29/24: EF 55-60%, mild conc LVH, no , no MR, no pericardial effusion
Plan:
-Blood pressure trend is overall improving. Back on losartan with stable creatinine. Continue amlodipine 10 mg daily. Increase Toprol to 50 mg p.o. twice daily.
-Creatinine stable at 1.3. Potassium remains normal back on losartan. Continue to follow-up
-Recent history of acute lacunar CVA in July 05/2024, cont aspirin 81 mg daily.
-Patient also newly started on Xarelto 2.5 mg BID following peripheral intervention yesterday
-Cont atorvastatin 40 mg daily. LDL was 48 last admission
-Post-op ECG with SR without ischemic changes.
Progress Note - Director Of Creative Services
Subjective
Date of Service: September 05, 2024
Denies chest pain. Has some pain at incision site.
Objective
Labs:
09/05/24 03:33
09/05/24 03:33
Labs
Hgb 10.4 g/dL (13.0-18.0) L 09/05/24 03:33
Hct 30.3 % (39.0-52.0) L 09/05/24 03:33
Plt Count 231 10^3/uL (130-400) D 09/05/24 03:33
PT 13.9 Sec (11.4-14.6) 09/04/24 04:01
INR 1.09 09/04/24 04:01
APTT 25.3 Sec (23.4-35.0) 09/04/24 04:01
Sodium 141 mmol/L (135-145) 09/05/24 03:33
Potassium 4.8 mmol/L (3.5-5.1) 09/05/24 03:33
BUN 33 mg/dl (9-20) H 09/05/24 03:33
Creatinine 1.3 mg/dL (0.7-1.3) 09/05/24 03:33
Glucose 160 mg/dl (70-99) H 09/05/24 03:33
Vital Signs and I&O:
Vital Signs
Temp Pulse Resp BP Pulse Ox
97.6 F 87 15 142/75 94
09/05/24 07:48 09/05/24 06:00 09/05/24 06:00 09/05/24 06:00 09/05/24 06:00
Vital Signs
Temp Pulse Resp BP Pulse Ox
97.6 F 87 15 142/75 94
09/05/24 07:48 09/05/24 06:00 09/05/24 06:00 09/05/24 06:00 09/05/24 06:00
Intake & Output
09/03/24 09/04/24 09/05/24 09/06/24
06:59 06:59 06:59 06:59
Intake Total 2278 / 2395.5 2857.5 / 2857.5
Output Total 1994 3525 / 352
Balance 283 / 175.5 -667.5 / -667.5
Physical Exam
Physical Exam
GEN: No distress, awake, Ox3
HEENT: supple, anicteric, mmm
LUNGS: CTA, no wheezes/rales
CV: Reg, S1/S2, 1/6 syst LSB, no gallop
ABD: soft, BS+, NT/ND
EXT: LE dressin intact
NEURO: Gross non-focal
SKIN: No rash
--- NOTE | 2024-09-05 08:12 | PN.DE.MGMTRT ---
Insulin Management
- -
09/05/2024 Diabetes Management Follow up:
Patient admitted 08/23 discharged 08/31 with L foot wound pain swelling at amputation site. Planned readmission 09/03 for LLE bypass. PMH HTN, type 2 diabetes, L great toe amputation years ago, PAD. A1C on admission 9.3% cr 1.5, eGFr 53.96. Prior
to admission was taking Lantus 28 units BID with NovoLog 20 units AC, with metformin 1000 mg BID. Patient sees endocrine at .
Patient is awake A/O x3, sitting up in bed, offers no complaints, able to discuss diabetes management. 09/03 Received 36 units lantus @ hs. with high resistance corrective insulin.
09/04Glucose range 152 to 279. Cr 1.3, eGFR >60 today. Fasting glucose 09/05 150.
Will continue Lantus 36 units BID, increase AC novolog to 35 units moderate corrective and Farxiga daily. Will follow and make further insulin adjustments if needed.
Patient states he has Kasandra 3 for glucose monitoring.
Diabetes History
- -
Type of Diabetes: 2 requiring insulin
Pre-Admission Diabetes Regimen
09/05/24
03:33
Creatinine 1.3
Insulin Pump Settings
IP Diabetes Regimen
09/04/24 09/04/24 09/04/24
08:38 11:56 16:48
Glucose
POC Glucose 251 H 264 H 227 H
09/04/24 09/05/24 09/05/24
21:33 03:33 07:12
Glucose 160 H
POC Glucose 152 H 150 H
Meal type: Lunch
Meal type: Breakfast
Amount consumed: 100%
Amount consumed: 100%
Patient Education
--- NOTE | 2024-09-05 08:25 | W.PN.VS ---
Today's Communication / Plan
-
Patient seen and examined at bedside with Dr. Kar Tom III, below plan reviewed with attending.
Assessment/Plan
-
Assessment: 58-year-old male POD #2 left lower extremity arterial bypass SFA to PT with in situ vein graft
Plan:
Cardiology consulted to aid in hypertensive management, appreciate recommendations, losartan restarted today
Dr. Holden assessed patient changed to non weight bearing
PT eval and treat
OT
Diabetes nurse practitioner following for continued management of hyperglycemia
Continue to encourage incentive spirometry
Downgrade to telemetry
Subjective Data
-
Date of Service: September 05, 2024
Patient seen and examined at bedside, no apparent distress and offers no complaints. Denies nausea, vomiting, fever, and chills.
Objective Data
-
Vital Signs
Temp Pulse Resp BP Pulse Ox
97.6 F 87 15 142/75 94
09/05/24 07:48 09/05/24 06:00 09/05/24 06:00 09/05/24 06:00 09/05/24 06:00
Intake and Output
09/04/24 09/05/24 09/06/24
06:59 06:59 06:59
Intake Total 2278 / 2395.5 2857.5 / 2857.5
Output Total 1994 / 2219 3525 / 3525
Balance 283 / 175.5 -667.5 / -667.5
Intake:
Oral fluids 1208 / 1208 2610 / 2610
IV fluids (Total) 1070 / 1187.5 247.5 / 247.5
Cardene 87.5 / 87.5
Norm 50 / 50
Nss 1,000 ml @ 80 mls/hr IV . 1020 / 1100 160 / 160
[id number] Rx#:[id number]
Output:
Drain Output (Total) 0 / 0
Left Leg 0 / 0
Urine, Tom 1994 675 / 675
Urine, Voided 2850 / 2850
Lab Results
09/05/24 03:33
09/05/24 03:33
Calcium 9.0 mg/dl (8.4-10.2) 09/05/24 03:33
Physical Exam
-
AAOx3, no apparent distress
No tachycardia
No dyspnea
ABD flat, nontender, nondistended
Left lower extremity surgical incision CDI, lino x 2 CDI, palpable graft pulse at left calf, Doppler signal PT, trace edema, bilateral feet warm
[2024-09-05] MEDS: COZAAR 100 MG PO (08:51)
[2024-09-05] MEDS: ROXICODONE 5 MG PO ×2 (09:39→17:20)
--- NOTE | 2024-09-05 10:27 | CM ---
CM following re: discharge planning.
Discussed in Rounds, reviewed pt's chart, met with pt and pt's girlfriend at bedside. Per Rounds meeting, pt is downgraded from ICU level of care. Vascular Surgery following.
PT and OT evaluations noted -SNF vs VN services recommended. Pt is aware and pt stated he preferred home with [facility]. Pt stated his girlfriend and 13 year daughter will help. CM explained to the pt the benefits of SNF level of care and pt
insisted to return back home with [facility].
A referral to [facility] noted, pt is accepted for VN services.
Please fax discharge instructions to [facility] at [phone]
D/C plan: home with [facility] and family support.
CM will follow with discharge plan updates as hospitalization progresses
--- NOTE | 2024-09-05 11:06 | W.PN.INTV ---
Today's Communication / Plan
Recommendations
Continue postoperative care
Neurovascular checks per protocol
Follow renal function
Antihypertensive
Analgesia
Physical therapy
Discontinue arterial line
Transferred to telemetry
Sign off
Assessment
-
Status post left lower extremity bypass, SFA to popliteal with in situ vein graft.
Postoperative acute kidney injury-
Conditions present prior admission:
Status post left great toe amputation by Dr. Holden August 2024.-Discharged on 08/31/2024
Klebsiella oxytoca and Staphylococcus epidermidis-status post antibiotics
Peripheral vascular disease-chronic limb ischemia with a nonhealing ulcer.
Hyperlipidemia
Poorly controlled type 2 diabetes
Hypertension
History of tobacco abuse and also more recently Vaping
History of a stroke
Echocardiogram 08/29/2024: Normal LVEF. Normal diastolic function. No significant valvular abnormalities
Assessment plan:
Doing well postoperative day 1-
Pain is controlled
Denies shortness of breath
Hemodynamically stable
Chest x-ray 09/04/2024: Findings suggestive of mild pulmonary edema. Mild cardiomegaly. Possible left linear left lower lobe atelectasis
Neuro and vascular checks per protocol
Incision is intact.
Graft pulses present
Vascular surgery following-correspondence and operative notes reviewed
History of osteomyelitis status post toe amputation 08/2024.
Continue antibiotic therapy
Hypertension improved
Discontinue arterial line
Restart oral antihypertensive
Cardene has been weaned off
Cardiology following patient
Acute kidney injury:
Improved
Follow hemoglobin-no evidence for bleeding
Incision is intact without hematoma
Poorly controlled diabetes.
Follow blood sugars
Insulin supplementation as needed
Continue subcutaneous
Diabetic diet
Smoking cessation-refused nicotine patch.
Not bronchospastic on exam
Patient vapes. Encouraged to quit
DVT prophylaxis-subcu Lovenox/Xarelto
Transferred to telemetry.
Critical care team will sign off.
Please call pulmonary if any respiratory issues arise
Subjective Dataa
Subjective Data
Date of Service:
Date of Service: September 05, 2024
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
Subjective:
Patient offers no new complaints
Pain is controlled
Denies shortness of breath
Denies any chest pain.
Review of Systems
General: Fever (n)
Cardiopulmonary: Dyspnea (none at rest)
GI: Abdominal Pain (n) and Nausea (n)
Neuro: Headache (n)
Objective Data
Data Reviewed
Vital Signs / I&O / Oxygen:
Vital Signs
Temp Pulse Resp BP Pulse Ox
97.6 F 87 15 144/93 94
09/05/24 07:48 09/05/24 06:00 09/05/24 06:00 09/05/24 08:51 09/05/24 06:00
Intake and Output
09/04/24 09/05/24 09/06/24
06:59 06:59 06:59
Intake Total 2278 / 2395.5 2857.5 / 2857.5
Output Total 1994 3525 / 3525
Balance 283 / 175.5 -667.5 / -667.5
SaO2 94
Physical Exam
General: Comfortable
HEENT: Normocephalic
Cardiovascular: S1-S2
Respiratory: Clear and Non-Labored Respirations
GI: Soft and Non Distended
Neurology: Awake, Alert and No Motor Deficits
Skin: Other (Left lower extremity surgical incision intact. Palpable graft pulse in left calf. Trace edema without rash.)
Labs/Micro/Reports
Lab Data
09/05/24 03:33
09/05/24 03:33
[2024-09-05 11:58] LABS: Glucose - Point of Care 189 mg/dl (70-99)
[2024-09-05] MEDS: NOVOLOG FLEXPEN-HIGH RESISTANCE 2 UNITS SC (12:05)
[2024-09-05] MEDS: NOVOLOG FLEXPEN 35 UNITS SC ×2 (12:06→17:20)
--- NOTE | 2024-09-05 14:05 | PN.CDI ---
CDI
- -
CDI:
Physician Documentation Request
Admit Date: 09/03/24 10:14
Dear CHADD De La O,
Please review the following and provide your response in the progress notes.
Clinical Indicators:
PN, 09/05
#POD #2 left lower extremity arterial bypass SFA to PT with in situ vein graft
#...Estimated Blood Loss: 50 cc
HX: CKD 3, Diabetes
Laboratory Tests
09/03/24 09/03/24 09/04/24
10:40 18:15 04:01
Hgb 12.6 L 9.6 L D 10.3 L
09/05/24
03:33
Hgb 10.4 L
Based on the above and your clinical assessment, please clarify the most likely condition/diagnosis evaluated, monitored and/or treated?
Acute blood loss anemia
Acute blood loss anemia with baseline chronic anemia (Specify type)
Anemia of chronic disease - indicate if neoplastic disease, CKD or other
Other (please specify)
Use of terms such as suspected, likely, concern for, or probable (associated with a specific diagnosis that is being evaluated, monitored, or treated as if it exists) are acceptable and can be coded in the inpatient setting, when documented at the
time of discharge.
Thank you,
Yareli Colon RN BSN CCDS
CDI Specialist
please contact via tiger text
Please use your independent medical judgment in providing your response.
--- NOTE | 2024-09-05 15:15 | W.PN.UPDATE ---
Update Note
Progress Note Update
In response to CDI:
Clinical Indicators:
PN, 09/05
#POD #2 left lower extremity arterial bypass SFA to PT with in situ vein graft
#...Estimated Blood Loss: 50 cc
HX: CKD 3, Diabetes
Laboratory Tests
09/03/24 09/03/24 09/04/24
10:40 18:15 04:01
Hgb 12.6 L 9.6 L D 10.3 L
09/05/24
03:33
Hgb 10.4 L
Based on the above and your clinical assessment, please clarify the most likely condition/diagnosis evaluated, monitored and/or treated?
Acute blood loss anemia following surgical intervention, coupled with hemodilution from IV fluid, monitor with repeat hemoglobin analysis demonstrating no further changes
--- NOTE | 2024-09-05 15:33 | PTCARENOTE ---
downgrade orders noted. non weight bearing status to LLE. assisted oob to the commode. pain controlled at this time with PRN pain meds. family updated. will cont to monitor
[2024-09-05 17:09] LABS: Glucose - Point of Care 99 mg/dl (70-99)
[2024-09-05] MEDS: LIPITOR 40 MG PO (17:21)
[2024-09-05] MEDS: NOVOLOG FLEXPEN-MODERATE RESISTANCE SC (17:23)
[2024-09-05 21:44] LABS: Glucose - Point of Care 131 mg/dl (70-99)
[2024-09-06] VITALS (17 sets, daily range): BP systolic 109–171; BP diastolic 65–119; PULSE 92–97
[2024-09-06] MEDS: NOVOLOG FLEXPEN 35 UNITS SC ×2 (07:28→12:04)
[2024-09-06 07:29] LABS: Glucose - Point of Care 203 mg/dl (70-99)
[2024-09-06] MEDS: NOVOLOG FLEXPEN-MODERATE RESISTANCE 3 UNITS SC (07:29)
[2024-09-06] MEDS: LANTUS 0.36 UNITS SC (07:29)
[2024-09-06] MEDS: NORVASC 10 MG PO (07:33)
[2024-09-06] MEDS: TOPROL XL 50 MG PO (07:33)
[2024-09-06] MEDS: FLAGYL 500 MG PO (07:33)
[2024-09-06] MEDS: COZAAR 100 MG PO (07:33)
[2024-09-06] MEDS: VIBRAMYCIN 100 MG PO (07:33)
[2024-09-06] MEDS: FARXIGA 10 MG PO (07:33)
[2024-09-06] MEDS: XARELTO 2.5 MG PO (07:33)
[2024-09-06] MEDS: LOW STRENGTH ASPIRIN 81 MG PO (07:33)
[2024-09-06] MEDS: HEPARIN 5000 UNITS SC (07:34)
--- NOTE | 2024-09-06 07:46 | W.PN.VS ---
Addendum entered and electronically signed by Kayden Ravi MD 09/06/24 12:28:
Seen and examined earlier this a.m. with AUTO BODY ESTIMATOR's. This is a late entry. Findings and plan as discussed and noted below.
Original Note:
Today's Communication / Plan
-
Seen and assessed with Dr. Ravi
Assessment/Plan
-
Assessment: 58-year-old male POD #3 left lower extremity arterial bypass SFA to PT with in situ vein graft
Plan:
PT
DC planning, SNF versus home health
Diabetes nurse practitioner following for continued management of hyperglycemia
Continue to encourage incentive spirometry
Subjective Data
-
Date of Service: September 06, 2024
Patient seen at bedside this a.m. with Dr. Ravi. Patient offers no complaints at this time. No events overnight.
Objective Data
-
Vital Signs
Temp Pulse Resp BP Pulse Ox
97.6 F 75 19 144/87 94
09/06/24 07:38 09/06/24 06:00 09/05/24 12:08 09/06/24 07:33 09/05/24 13:00
Intake and Output
09/05/24 09/06/24 09/07/24
06:59 06:59 06:59
Intake Total 2857.5 / 2857.5 250 / 250
Output Total 3525 / 3525 1200 / 1200
Balance -667.5 / -667.5 -950 / -950
Intake:
Oral fluids 2610 / 2610 250 / 250
IV fluids (Total) 247.5 / 247.5
Cardene 87.5 / 87.5
Nss 1,000 ml @ 80 mls/hr IV . 160 / 160
[id number] CAITLYN Rx#:[id number]
Output:
Urine, Tom 675 / 675
Urine, Voided 2850 / 2850 1200 / 1200
Lab Results
09/05/24 03:33
09/05/24 03:33
Calcium 9.0 mg/dl (8.4-10.2) 09/05/24 03:33
Physical Exam
-
AAOx3, no apparent distress
No tachycardia
No dyspnea
ABD flat, nontender, nondistended
Left lower extremity surgical incision CDI, lino x 2 CDI, palpable graft pulse at left calf, Doppler signal PT, trace edema, bilateral feet warm
--- NOTE | 2024-09-06 08:11 | PN.DE.MGMTRT ---
Insulin Management
- -
09/06/2024 Diabetes Management Follow up:
Patient admitted 08/23 discharged 08/31 with L foot wound pain swelling at amputation site. Planned readmission 09/03 for LLE bypass. PMH HTN, type 2 diabetes, L great toe amputation years ago, PAD. A1C on admission 9.3% cr 1.5, eGFr 53.96. Prior
to admission was taking Lantus 28 units BID with NovoLog 20 units AC, with metformin 1000 mg BID. Patient sees endocrine at .
Patient is awake A/O x3, sitting up in bed, offers no complaints, able to discuss diabetes management. 09/03 Received 36 units lantus @ hs. with high resistance corrective insulin.
09/05 Glucose range 99 to 189. Cr 1.3, eGFR >60.
09/06 Fasting glucose 203.
Will continue Lantus 36 units BID, AC novolog increased yesterday to 35 units moderate corrective and Farxiga daily. Will follow and make further insulin adjustments if needed.
Patient states he has Kasandra 3 for glucose monitoring.
Diabetes History
- -
Type of Diabetes: 2 requiring insulin
Pre-Admission Diabetes Regimen
Insulin Pump Settings
IP Diabetes Regimen
09/05/24 09/05/24 09/05/24
11:41 16:58 21:33
POC Glucose 189 H 99 131 H
09/06/24
07:17
POC Glucose 203 H
Amount consumed: 100%
Patient Education
--- NOTE | 2024-09-06 08:20 | W.PN.CARDCBS ---
Today's Communication / Plan
-
Blood pressure trends are overall improved. Continue losartan, amlodipine, and Toprol.
Check basic metabolic panel to follow creatinine and potassium.
Continue aspirin, atorvastatin, and Xarelto.
Continue physical therapy
Impression / Plan
-
PCP: Dr. Brandi Evangelista
Cardiology: possibly seen by windows technical specialist at [facility], but no records in [facility]
Impression:
s/p LLE arterial bypass SFA to PT with in situ vein graft 09/03/24
HTN urgency
HTN emergency last admission 08/23/24
Recent admission for left foot wound 08/23/24 until 08/31/24
h/o left great toe partial amputation 2020 then wound requiring left hallux and 1st metatarsal resection and sesamoidectomy 08/25/24
DM 2
Medication noncompliance
h/o HTN
Essential hypertension
Hyperlipidemia
THOMAS on CKD 3b
h/o CVA 06/2024
Smoker/vaper
Echo 08/29/24: EF 55-60%, mild conc LVH, no , no MR, no pericardial effusion
Plan:
-Blood pressure trend is improving. Continue Losartan, amlodipine 10 mg daily. Toprol to 50 mg p.o. twice daily.
-Creatinine stable at 1.3 09/05. Repeat Basic Met
-Recent history of acute lacunar CVA in July 05/2024, cont aspirin 81 mg daily.
-Patient also newly started on Xarelto 2.5 mg BID following peripheral intervention yesterday
-Cont atorvastatin 40 mg daily. LDL was 48 last admission
-Post-op ECG with SR without ischemic changes.
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
Subjective
Date of Service: September 06, 2024
Feeling better. Pains are controlled. Blood pressure trend is improved.
Objective
Labs:
09/05/24 03:33
09/05/24 03:33
Labs
Hgb 10.4 g/dL (13.0-18.0) L 09/05/24 03:33
Hct 30.3 % (39.0-52.0) L 09/05/24 03:33
Plt Count 231 10^3/uL (130-400) D 09/05/24 03:33
PT 13.9 Sec (11.4-14.6) 09/04/24 04:01
INR 1.09 09/04/24 04:01
APTT 25.3 Sec (23.4-35.0) 09/04/24 04:01
Sodium 141 mmol/L (135-145) 09/05/24 03:33
Potassium 4.8 mmol/L (3.5-5.1) 09/05/24 03:33
BUN 33 mg/dl (9-20) H 09/05/24 03:33
Creatinine 1.3 mg/dL (0.7-1.3) 09/05/24 03:33
Glucose 160 mg/dl (70-99) H 09/05/24 03:33
Vital Signs and I&O:
Vital Signs
Temp Pulse Resp BP Pulse Ox
97.6 F 79 19 145/88 94
09/06/24 07:38 09/06/24 08:00 09/05/24 12:08 09/06/24 08:00 09/05/24 13:00
Vital Signs
Temp Pulse Resp BP Pulse Ox
97.6 F 79 19 145/88 94
09/06/24 07:38 09/06/24 08:00 09/05/24 12:08 09/06/24 08:00 09/05/24 13:00
Intake & Output
09/04/24 09/05/24 09/06/24 09/07/24
06:59 06:59 06:59 06:59
Intake Total 2278 / 2395.5 2857.5 / 2857.5 250 / 250
Output Total 1994 3525 / 3525 1200 / 1200
Balance 283 / 175.5 -667.5 / -667.5 -950 / -950
Physical Exam
Physical Exam
GEN: No distress, awake, Ox3
HEENT: supple, anicteric, mmm
LUNGS: CTA, no wheezes/rales
CV: Reg, S1/S2, 1/6 syst LSB, no gallop
ABD: soft, BS+, NT/ND
EXT: No edema
NEURO: Gross non-focal
SKIN: dressing intact
[2024-09-06 09:49] LABS: Blood Urea Nitrogen 32 mg/dl (9-20); Calcium 8.9 mg/dl (8.4-10.2); Carbon Dioxide 20 mmol/L (22-30); Chloride 106 mmol/L (98-107); Estimated Creatinine Clearance 70 ml/min; Glucose 201 mg/dl (70-99); Potassium 4.1 mmol/L (3.5-5.1); Sodium 139 mmol/L (135-145); eGFR 58.62
--- NOTE | 2024-09-06 10:19 | PTCARENOTE ---
Addendum entered by Janet Lopez RN 09/06/24 15:00:
left foot in cling wrap c/d/i
Original Note:
pt received this am aox3, on room air. left thigh and jay dressings c/d/i, lino drains intact. pt able to reposition self in bed, educated on nonweightbearing to left leg- verbalized understanding. all safety precautions in place, call dow within
reach.
--- NOTE | 2024-09-06 11:04 | CM ---
Addendum entered by Enoc Pickett 09/06/24 14:12:
Discharge order noted. Pt is aware and he stated his girlfriend will transport home.
Please fax discharge instructions to [facility] at [phone]
D/C plan: home with [facility] and family support. Girlfriend to transport.
Original Note:
CM following re: discharge planning.
Discussed in Rounds, reviewed pt's chart, met with pt .
Pt is POD #3 left lower extremity arterial bypass SFA to PT with in situ vein graft. Vascular surgery following, continue supportive care.
Pt continue expressing his desire to return back home with [facility], declining SNF as an option.
[facility] has accepted pt for VN services upon the discharge.
Please fax discharge instructions to [facility] at [phone]
D/C plan: home with [facility] and family support.
CM will follow with discharge plan updates as hospitalization progresses
[2024-09-06] MEDS: NOVOLOG FLEXPEN-MODERATE RESISTANCE 1 UNITS SC (12:04)
[2024-09-06 12:14] LABS: Glucose - Point of Care 175 mg/dl (70-99)
--- NOTE | 2024-09-06 13:39 | W.DS.TRANS ---
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
-
Discharge Instructions:
Sleep Apnea Risk Intermediate
Discharge Diagnosis/Procedures In-situ LLE bypass; SFA to PT
Diet Diabetic, Carb Controlled
Activity No strenuous activity
Driving Restrictions Not until seen by your Dr
Bathing Restrictions OK to Shower
Blood Work BMP lab draw in one week, script provided
Other Services PT,OT
Instructions:
Stand-Alone Forms: DC Instr - Vascular OR
Changes to Home Medications: Yes
Discharge Medications:
DC Medications w/original date entered in [facility]
amlodipine 10 mg tablet 10 mg PO DAILY Blood Pressure 08/23/24
tadalafil 20 mg tablet 20 mg PO DAILYPRN PRN ed 08/23/24
aspirin 81 mg chewable tablet 81 mg PO DAILY #30 tabs 08/31/24
atorvastatin 40 mg tablet 40 mg PO QPM #30 tabs 08/31/24
dapagliflozin propanediol 10 mg tablet 10 mg PO DAILY #30 tabs 08/31/24
insulin glargine 100 unit/mL (3 mL) subcutaneous pen (Lantus Solostar U-100 Insulin) 36 unit (0.36 mL) SC BID Diabetes #0 mL 08/31/24
nicotine 14 mg/24 hr daily transdermal patch 14 mg transdermal DAILY #30 ea 08/31/24
losartan 100 mg tablet 100 mg PO DAILY Blood Pressure 09/03/24
doxycycline hyclate 100 mg capsule 100 mg PO Q12 #60 caps 09/06/24
insulin aspart U-100 100 unit/mL (3 mL) subcutaneous pen (Novolog FlexPen U-100 Insulin aspart) 35 unit (0.35 mL) SC MEALS Diabetes #0 mL 09/06/24
metoprolol succinate 50 mg tablet,extended release 24 hr 50 mg PO BID #90 tabs 09/06/24
metronidazole 500 mg tablet 500 mg PO BID #60 tabs 09/06/24
rivaroxaban 2.5 mg tablet (Xarelto) 2.5 mg PO BID #120 tabs 09/06/24
Home Medication Changes
Increased metoprolol
Cont antibiotics until 09/18
Increase insulin aspart to 35 units
Add Xarelto 2.5
Pending Results: No
--- NOTE | 2024-09-06 15:00 | PTCARENOTE ---
pt given all discharge instructions, education provided. verbalized understanding. scripts sent to pharmacy and other scripts given to pt. left and right arm ivs removed, pressure dressings applied.
[2024-09-06] MEDS: TYLENOL 650 MG PO (15:04)
--- NOTE | 2024-09-06 15:18 | PTCARENOTE ---
kim bhakta aware of bp, no further orders at this time. pt left foot dressing redressed, educated pt on wound care, verbalized understanding.
--- NOTE | 2024-09-06 17:09 | PTCARENOTE ---
wheelchaired down by rn. all belongings sent with pt
== END 2024-09-06 17:15 | disposition home health service (06) | DRG 253 ==
LOC: ICU 10:14
PROVIDERS: Internal Medicine Cardiovascular Disease; Nurse Practitioner; Nurse Practitioner Family; ADMITTING PHYSICIAN Surgery Vascular Surgery; CONSULT PHYSICIAN Internal Medicine Critical Care Medicine; CONSULT PHYSICIAN Internal Medicine Interventional Cardiology; CONSULT PHYSICIAN Podiatrist Foot Surgery; FAMILY PHYSICIAN Family Medicine
PROC: 041L09N Bypass Left Femoral Artery to Posterior Tibial Artery with Autologous Venous Tissue, Open Approach (ICD-10-PCS; 2024-09-04)
PROC: 06BQ0ZZ Excision of Left Saphenous Vein, Open Approach (ICD-10-PCS; 2024-09-04)
DX: E11.51 Type 2 diabetes mellitus with diabetic peripheral angiopathy without gangrene (principal); D62 Acute posthemorrhagic anemia; I70.222 Atherosclerosis of native arteries of extremities with rest pain, left leg; E11.22 Type 2 diabetes mellitus with diabetic chronic kidney disease; I12.9 Hypertensive chronic kidney disease with stage 1 through stage 4 chronic kidney disease, or unspecified chronic kidney disease; N18.32 Chronic kidney disease, stage 3b; T87.81 Dehiscence of amputation stump; I16.0 Hypertensive urgency; N99.0 Postprocedural (acute) (chronic) kidney failure; E78.5 Hyperlipidemia, unspecified; F17.290 Nicotine dependence, other tobacco product, uncomplicated; Z79.4 Long term (current) use of insulin; Z79.82 Long term (current) use of aspirin; Z79.899 Other long term (current) drug therapy; Z86.73 Personal history of transient ischemic attack (TIA), and cerebral infarction without residual deficits; Z89.412 Acquired absence of left great toe; Z87.39 Personal history of other diseases of the musculoskeletal system and connective tissue; Z86.19 Personal history of other infectious and parasitic diseases; Z91.199 Patient's noncompliance with other medical treatment and regimen due to unspecified reason; Z91.148 Patient's other noncompliance with medication regimen for other reason
CPT/HCPCS: 35585; 71045; 80048; 82962; 85027; 85610; 85730; 86850; 86900; 86901; 93005; 97116; 97163; 97167; 97535; 99406; P9045; Q9967

== ENCOUNTER → 2024-11-07 12:54 | Outpatient (REF) | payer OTHER, SELFPAY | LOC: RAD 12:54 | PROVIDERS: ATTENDING PHYSICIAN Registered Nurse; FAMILY PHYSICIAN Family Medicine | DX: I77.9 Disorder of arteries and arterioles, unspecified (principal) | CPT/HCPCS: 93922; 93925 ==